=== PATIENT | female | born 1940 | race Caucasian/White ===

== ENCOUNTER → 2017-03-14 | Outpatient (CLI) | payer MEDICARE, MEDICAID, SELFPAY | PROVIDERS: Visit Provider Internal Medicine | DX: M54.2 Cervicalgia; C82.91 Follicular lymphoma, unspecified, lymph nodes of head, face, and neck | CPT/HCPCS: 36415; 70491; 71260; 72156; 74177; 76376; 80053; 85025; A9576; Q9967 ==

== ENCOUNTER → 2017-03-28 | Outpatient (POV) | payer MEDICARE, MEDICAID, SELFPAY | PROVIDERS: Family Provider Family Medicine; PCP Family Medicine; Visit Provider Internal Medicine | DX: C85.90 Non-Hodgkin lymphoma, unspecified, unspecified site (principal) | CPT/HCPCS: 99214; 93971 ==

== ENCOUNTER 2017-04-02 11:22 | Inpatient (IN) | payer MEDICARE, MEDICAID, SELFPAY ==
[2017-04-02] VITALS (10 sets, daily range): BP systolic 132–187; BP diastolic 60–117; PULSE 109–153; RESP 14–22; TEMP 36.8–37.7; O2SAT 90–98; BMI 38.2
--- NOTE | 2017-04-02 06:33 | XR_ITS ---
XR chest portable Ordering Physician: Jagruti Kim MD Patient Age: 77 years: Female HISTORY: Short of breath chest discomfort. Recent diagnosis lymphoma and mediastinum. TECHNIQUE: AP upright portable chest COMPARISON :PA and lateral chest from 05/07/[address] chest 03/14/2017 FINDINGS Cardiomegaly slightly more pronounced on today's study in part due to the AP projection.. . I would encourage a echocardiogram if it has not been performed on due to the thickening at the cardiac apex noted on prior CT. Upper normal pulmonary vascularity seen today. Do not see any convincing CHF. Mild fullness at the right paratracheal region is similar to multiple old studies reflects tortuous innominate on recent CT. The lungs overall appears stable since July 2015 chest portable no discrete new findings. No pleural effusion or pneumothorax. Stable linear scarring towards the left lung base. 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 Linear scarring towards left base. Cardiomegaly perhaps slightly more pronounced today. Perhaps Mild stable vascular engorgement but But No CHF. Note Would suggest echocardiogram if it is not been performed in this patient given the thin appearance cardiac apex prior CT
[2017-04-02 07:07] LABS: Basophils # 0.1 K/mm3 (0-0.2); Basophils % 0.7 % (0.1-2.0); Eosinophils # 0.3 K/mm3 (0.0-0.4); Eosinophils % 3.2 % (0.1-12.0); Hematocrit 45.9 % (37.0-47.0); Hemoglobin 14.7 g/dL (12.2-16.2); Lymphocytes # 3.2 K/mm3 (0.7-4.5); Lymphocytes % 35.9 K/mm3 (10-50); Mean Corpuscular Hemoglobin 31.3 pg (27.0-31.2); Mean Corpuscular Volume 97.9 fl (81-99); Mean Platelet Volume 9.9 fl (7.4-10.4); Neutrophils # 4.4 K/mm3 (1.8-7.8); Neutrophils % 49.1 % (37.0-80.0); Platelet Count 186 K/mm3 (142-424); Red Blood Count 4.69 M/mm3 (4.20-5.40); Red Cell Distribution Width 12.7 % (11.5-17.5); White Blood Count 8.9 K/mm3 (4.8-10.8)
[2017-04-02 07:23] LABS: Lactic Acid 1.6 mmol/L (0.4-2.0)
--- NOTE | 2017-04-02 08:24 | HMH.EDGENADL ---
ED Disposition Clinical Impression: Atrial fibrillation with rapid ventricular response Disposition: Still a Patient Condition on Discharge: Fair Referrals: Sunil Roque MD [Primary Care Provider] - - Critical Care Critical Care Time: Yes Attestation: On 04/02/17, the high probability of a clinically significant, sudden or life threatening deterioration of the following system(s) required my full and direct attention, intervention and personal management. The time I documented below is in addition to time spent performing reported procedures but includes the following listed in this critical care notation. Total Critical Care Time: 20 Vital system(s) involved:: Circulatory Failure My critical care processes included: Assessment & monitoring of V/S, Initial and Re-exams, Data Review/Interpretation, Coordinating Care, Medication Orders and management, Documentation Medical Decision Making - Medical Records Medical records reviewed: Yes: I reviewed the patient's medical records. MR Comment: I am unable to confirm any cardiac hx on our old records; ict project manager is at [facility] Vital Signs: 04/02/17 06:20 Temperature 98.9 F Temperature Source Oral Pulse Rate 153 H Pulse Rate [Right Radial] 150 H Respiratory Rate 22 Blood Pressure [Right Arm] 159/117 Blood Pressure Mean [Right Arm] 131 Blood Pressure Source [Right Arm] Automatic Cuff Blood Pressure Position [Right Arm] Supine 02 Sat by Pulse Oximetry 96 Oxygen Delivery Method Room Air - Lab Data Result diagrams: 04/02/17 06:30 Orders (Tests/Meds): ED MEDICATIONS Generic Name Dose Route Start Last Admin Trade Name Freq PRN Reason Stop Dose Admin Sodium Chloride 10 ml 04/02/17 07:18 Saline Flush 10ml Syringe IV 05/02/17 07:17 NEEDED PRN Maintain IV Site Discontinued Medications Generic Name Dose Route Start Last Admin Trade Name Freq PRN Reason Stop Dose Admin Metoprolol Tartrate 2.5 mg 04/02/17 07:22 04/02/17 06:55 Metoprolol Tartrate 5mg/5ml Vial IV 04/02/17 07:23 2.5 mg ONCE ONE Administration Metoprolol Tartrate 2.5 mg 04/02/17 07:24 04/02/17 07:25 Metoprolol Tartrate 5mg/5ml Vial IV 04/02/17 07:25 2.5 mg ONCE ONE Administration ORDERS Category Date Time Status XR chest portable Stat Exams 04/02/17 06:33 Taken CMP [Comprehensive Metabolic Panel] Stat Lab 04/02/17 06:30 Received Cardiac Enzymes Stat Lab 04/02/17 06:30 Received Blood Culture Stat Micro 04/02/17 06:30 Received - Radiology Data #1 Image(s): Chest Image Reviewed: Yes I reviewed the patient's radiology results Preliminary Findings: Abnormal, No Infiltrates Seen ER COMMENT: pt w recent dx lymphoma; densities in the mediastinal region; pos CM; somewhat elevated R hemidiaphragm - ECG Data Tracing #1 I reviewed this ECG and interpreted as documented below: Afib w rapid ventricular response; LAFB; ST depression laterally strain vs. dig effect - Physician Consults Physician Consulted: Dr. Dietz Time: 07:50 (Dr. Dietz master control operator for Dr. Roque; aware that patient in rapid Afib and receiving meds in ED and care to be transferred at change of shift to Dr. Coronel; if persistent rapid rate Dr. Coronel to consult cardiology and Dr. Dietz regarding final disposition and care. ) Reason -: Pt condition - Sarath Inquiry Pt receiving controlled substance: No General Adult HPI - General Chief complaint: Chest Pain Stated complaint: CHEST PAIN Time Seen by Provider: 04/02/17 06:20 Mode of Arrival: Ambulatory Source of Information: Patient Limitations: No Limitations Description of Symptoms (Recalled from ER Triage Doc. by RN): CHEST PAIN, SOB, NAUSEA - History of Present Illness HPI narrative: Patient states she awakened at 0500 with palpitations. She has them intermittently and has been seen by Dr. Vazquez at [facility] in the past. She states she has lymphoma and is followed by Dr. Mcintyre. She watson
--- NOTE | 2017-04-02 08:29 | ED_ITS ---
ED Disposition Clinical Impression: Atrial fibrillation with rapid ventricular response Disposition: Still a Patient Condition on Discharge: Fair Referrals: Sunil Roque MD [Primary Care Provider] - - Critical Care Critical Care Time: Yes Attestation: On 04/02/17, the high probability of a clinically significant, sudden or life threatening deterioration of the following system(s) required my full and direct attention, intervention and personal management. The time I documented below is in addition to time spent performing reported procedures but includes the following listed in this critical care notation. Total Critical Care Time: 20 Vital system(s) involved:: Circulatory Failure My critical care processes included: Assessment & monitoring of V/S, Initial and Re-exams, Data Review/Interpretation, Coordinating Care, Medication Orders and management, Documentation Medical Decision Making - Medical Records Medical records reviewed: Yes: I reviewed the patient's medical records. MR Comment: I am unable to confirm any cardiac hx on our old records; professional driver is at [facility] Vital Signs: 04/02/17 06:20 Temperature 98.9 F Temperature Source Oral Pulse Rate 153 H Pulse Rate [Right Radial] 150 H Respiratory Rate 22 Blood Pressure [Right Arm] 159/117 Blood Pressure Mean [Right Arm] 131 Blood Pressure Source [Right Arm] Automatic Cuff Blood Pressure Position [Right Arm] Supine 02 Sat by Pulse Oximetry 96 Oxygen Delivery Method Room Air - Lab Data Result diagrams: 04/02/17 06:30 Orders (Tests/Meds): ED MEDICATIONS Generic Name Dose Route Start Last Admin Trade Name Freq PRN Reason Stop Dose Admin Sodium Chloride 10 ml 04/02/17 07:18 Saline Flush 10ml Syringe IV 05/02/17 07:17 NEEDED PRN Maintain IV Site Discontinued Medications Generic Name Dose Route Start Last Admin Trade Name Freq PRN Reason Stop Dose Admin Metoprolol Tartrate 2.5 mg 04/02/17 07:22 04/02/17 06:55 Metoprolol Tartrate 5mg/5ml Vial IV 04/02/17 07:23 2.5 mg ONCE ONE Administration Metoprolol Tartrate 2.5 mg 04/02/17 07:24 04/02/17 07:25 Metoprolol Tartrate 5mg/5ml Vial IV 04/02/17 07:25 2.5 mg ONCE ONE Administration ORDERS Category Date Time Status XR chest portable Stat Exams 04/02/17 06:33 Taken CMP [Comprehensive Metabolic Panel] Stat Lab 04/02/17 06:30 Received Cardiac Enzymes Stat Lab 04/02/17 06:30 Received Blood Culture Stat Micro 04/02/17 06:30 Received - Radiology Data #1 Image(s): Chest Image Reviewed: Yes I reviewed the patient's radiology results Preliminary Findings: Abnormal, No Infiltrates Seen ER COMMENT: pt w recent dx lymphoma; densities in the mediastinal region; pos CM ; somewhat elevated R hemidiaphragm - ECG Data Tracing #1 I reviewed this ECG and interpreted as documented below: Afib w rapid ventricular response; LAFB; ST depression laterally strain vs. dig effect - Physician Consults Physician Consulted: Dr. Dietz Time: 07:50 (Dr. Dietz managing consultant clinical professor for Dr. Roque; aware that patient in rapid Afib and receiving meds in ED and care to be transferred at change of shift to Dr. Coronel; if persistent rapid rate Dr. Coronel to consult cardiology and
[2017-04-02 09:03] LABS: Alanine Aminotransferase 21 U/L (12-78); Albumin Level 3.5 gm/dL (3.4-5.0); Albumin/Globulin Ratio 0.9 (1.1-1.8); Alkaline Phosphatase 89 U/L (46-116); Anion Gap 15.1 mEq/L (5-15); Aspartate Amino Transferase 31 U/L (15-37); Bilirubin,Total 0.4 mg/dL (0.2-1.0); Blood Urea Nitrogen 20 mg/dL (7-18); CKMB Relative Index 5.9 U/L (0-4.0); Calcium 10.1 mg/dL (8.5-10.1); Carbon Dioxide 27 mmol/L (21.0-32.0); Chloride 102 mmol/L (98-107); Creatine Kinase 44 U/L (26-140); Creatine Kinase MB 2.6 mg/ml (0.0-3.6); Creatinine Clearance Estimated 64 mg/ml (0-300); Creatinine,Serum 1.17 mg/dL (0.55-1.02); Estimated Glomerular Filt Rate 45 ml/min (>60); GFR (African American) 54 ML/MIN (>60); Globulin 3.8 gm/dl (1.3-3.2); Glucose 128 mg/dL (74-106); Potassium 4.1 mmoL/L (3.5-5.1); Sodium 140 mmol/L (136-145); Total Protein,Serum 7.3 gm/dL (6.4-8.2); Troponin I 0.06 ng/ml (0.00-0.06)
--- NOTE | 2017-04-02 10:56 | PC.NURSE ---
ADVISED MD PT HEART RATE WAS STILL IN THE 130'S. HE ADVISED HE WAS GOING TO SEE THE PATIENT IN A FEW MOMENTS AND NO NEW VERBAL ORDERS WERE GIVEN AT THIS TIME.
--- NOTE | 2017-04-02 11:05 | PC.NURSE ---
per increased cardizem drip to 6ml/hr.
--- NOTE | 2017-04-02 12:02 | PC.NURSE ---
ADVISED PT SHE WOULD BE WAITING IN THE ED UNTIL BED WAS AVALIABLE ON THE FLOOR. PT AGREEABLE AND EATING LUNCH AT THIS TIME
--- NOTE | 2017-04-02 13:24 | PC.NURSE ---
CALLED AND SPOKE WITH THE FLOOR ABOUT BED STATUS THEY ADVISED THEY WERE MOVING ONE TO FLOOR AND WAS WAITING ON THE BED TO BE CLEANED
[2017-04-02 16:19] LABS: Troponin I 8.46 ng/ml (0.00-0.06)
[2017-04-02 19:06] LABS: Troponin I 8.12 ng/ml (0.00-0.06)
--- NOTE | 2017-04-02 20:30 | HMH.HP ---
*Admission Date: 04/02/17 *Chief complaint: Palpitations *History of present illness: 77-year-old white female, recently diagnosed with lymphoma, who over the summer has had treatments here through [facility] hematology. She has a remote history of palpitations related to anxiety, but this morning began to have significant palpitations along with some fleeting chest pain. She had dyspnea as well as the palpitations and came to the emergency department. She was found to have atrial fibrillation with rapid response, and was treated initially with intravenous beta bobby in low doses but this failed to improve her situation and she was placed on diltiazem intravenously after bolus dose and placed in the intensive care unit. Currently she feels much better, feels like her palpitations are improving and denies chest pain or diaphoresis. She does complain of recent cough and a rash over her extremities that is new. Her cough is dry and nonproductive. [facility] History Medical History: Reports:: Atrial Fibrillation, Cancer Denies:: Diabetes Mellitus Type 2, Myocardial Infarction - *Social History Smoking Status: Former smoker Alcohol Intake: never - Psychiatric History Expresses thoughts of harming self/others: None Suicide Plan Description: No Plan *Family Hx:: No significant family history, Non-contributory Review of Systems - Constitutional Reports fatigue, Reports fever(s), Reports night sweats - ENT Reports nasal congestion, Reports neck lump - *Cardiovascular Reports chest pain, Reports chest pain at rest, Reports shortness of breath with activity, Reports irregular heart rhythm - *Gastrointestinal Denies abdominal pain, Denies bloating, Denies change in bowel habits, Denies change in stools, Denies heartburn, Denies difficulty swallowing - *Genitourinary Denies difficulty urinating, Denies painful urination, Denies blood in urine - *Musculoskeletal Reports back pain, Reports body aches - *Neurologic Denies frequent falls, Denies headache(s), Denies memory loss - Hematologic/Lymphatic Reports easy bruising, Reports enlarged lymph nodes Meds Home Medications Medication Instructions Recorded Confirmed Type ALPRAZolam [Alprazolam 0.25mg 0.25 mg PO DAILY 04/02/17 04/02/17 History Tab] Budesonide/Formoterol Fumarate 6 gm IH DAILY 04/02/17 04/02/17 History [Symbicort 160-4.5 Mcg Inhaler] Hydrocodone/Acetaminophen 1 each PO DAILY 04/02/17 04/02/17 History [Hydrocodon-Acetaminophn 10-325] Lisinopril [Lisinopril 2.5mg Tab] 2.5 mg PO DAILY 04/02/17 04/02/17 History Omeprazole [Omeprazole 20mg 20 mg PO DAILY 04/02/17 04/02/17 History Capsule] Allergies Allergy/AdvReac Type Severity Reaction Status Date / Time buspirone [From BuSpar] Allergy Severe SUICIDAL Verified 04/02/17 06:40 IDEATION prednisone Allergy Severe INTERNAL Verified 04/02/17 06:40 ORGANOMEGALY propoxyphene Allergy Severe RESPIRATORY Verified 04/02/17 06:40 [From Darvocet-N] DEPRESSION tramadol Allergy Severe SEVERE Verified 04/02/17 06:40 WITHDRAWAL adhesive Allergy Intermediate I-RASH Verified 04/02/17 06:40 bupropion [From Wellbutrin] Allergy Intermediate DEPRESSION Verified 04/02/17 06:40 codeine Allergy Intermediate LEG PAIN, Verified 04/02/17 06:40 STOMACH CRMPS cyclobenzaprine Allergy Intermediate MUSCLE Verified 04/02/17 06:40 [From Flexeril] SPASMS diclofenac [From Voltaren] Allergy Intermediate I-HIVES Verified 04/02/17 06:40 escitalopram [From Lexapro] Allergy Intermediate IRREGULAR Verified 04/02/17 06:40 HEART RATE, NUMBNESS,TINGLING gabapentin [From Neurontin] Allergy Intermediate I-ITCHING, Verified 04/02/17 06:40 SLURRED SPEECH, HEAD PAIN influenza virus vaccine, Allergy Intermediate I-RASH Verified 04/02/17 06:40 specific [influenza virus vacc,specific] meloxicam [From Mobic] Allergy Intermediate SORES, Verified
--- NOTE | 2017-04-02 20:33 | P.HP_ITS ---
*Admission Date: 04/02/17 *Chief complaint: Palpitations *History of present illness: 77-year-old white female, recently diagnosed with lymphoma, who over the summer has had treatments here through [facility] hematology. She has a remote history of palpitations related to anxiety, but this morning began to have significant palpitations along with some fleeting chest pain. She had dyspnea as well as the palpitations and came to the emergency department. She was found to have atrial fibrillation with rapid response, and was treated initially with intravenous beta bobby in low doses but this failed to improve her situation and she was placed on diltiazem intravenously after bolus dose and placed in the intensive care unit. Currently she feels much better, feels like her palpitations are improving and denies chest pain or diaphoresis. She does complain of recent cough and a rash over her extremities that is new. Her cough is dry and nonproductive. [facility] History Medical History: Reports:: Atrial Fibrillation, Cancer Denies:: Diabetes Mellitus Type 2, Myocardial Infarction - *Social History Smoking Status: Former smoker Alcohol Intake: never - Psychiatric History Expresses thoughts of harming self/others: None Suicide Plan Description: No Plan *Family Hx:: No significant family history, Non-contributory Review of Systems - Constitutional Reports fatigue, Reports fever(s), Reports night sweats - ENT Reports nasal congestion, Reports neck lump - *Cardiovascular Reports chest pain, Reports chest pain at rest, Reports shortness of breath with activity, Reports irregular heart rhythm - *Gastrointestinal Denies abdominal pain, Denies bloating, Denies change in bowel habits, Denies change in stools, Denies heartburn, Denies difficulty swallowing - *Genitourinary Denies difficulty urinating, Denies painful urination, Denies blood in urine - *Musculoskeletal Reports back pain, Reports body aches - *Neurologic Denies frequent falls, Denies headache(s), Denies memory loss - Hematologic/Lymphatic Reports easy bruising, Reports enlarged lymph nodes Meds Home Medications Medication Instructions Recorded Confirmed Type ALPRAZolam [Alprazolam 0.25mg 0.25 mg PO DAILY 04/02/17 04/02/17 History Tab] Budesonide/Formoterol Fumarate 6 gm IH DAILY 04/02/17 04/02/17 History [Symbicort 160-4.5 Mcg Inhaler] Hydrocodone/Acetaminophen 1 each PO DAILY 04/02/17 04/02/17 History [Hydrocodon-Acetaminophn 10-325] Lisinopril [Lisinopril 2.5mg Tab] 2.5 mg PO DAILY 04/02/17 04/02/17 History Omeprazole [Omeprazole 20mg 20 mg PO DAILY 04/02/17 04/02/17 History Capsule] Allergies Allergy/AdvReac Type Severity Reaction Status Date / Time buspirone [From BuSpar] Allergy Severe SUICIDAL Verified 04/02/17 06:40 IDEATION prednisone Allergy Severe INTERNAL Verified 04/02/17 06:40 ORGANOMEGALY propoxyphene Allergy Severe RESPIRATORY Verified 04/02/17 06:40 [From Darcristianocet-N] DEPRESSION tramadol Allergy Severe SEVERE Verified 04/02/17 06:40 WITHDRAWAL adhesive Allergy Intermediate I-RASH Verified 04/02/17 06:40 bupropion [From Wellbutrin] Allergy Intermediate DEPRESSION Verified 04/02/17 06 :40 codeine Allergy Intermediate LEG PAIN, Verified 04/02/17 06:40 STOMACH CRMPS cyclobenzaprine Allergy Intermediate MUSCLE Verified 04/02/17 06:40
[2017-04-02 21:56] LABS: Troponin I 6.25 ng/ml (0.00-0.06)
[2017-04-03] VITALS (28 sets, daily range): BP systolic 96–144; BP diastolic 45–87; PULSE 49–131; RESP 16–22; TEMP 36.6–37.4; O2SAT 90–902; BMI 37.8
--- NOTE | 2017-04-03 01:26 | PC.NURSE ---
PT IS A&OX3. SHE IS [place]. SHE HAS A NON-PRODUCTIVE COUGH. SHE HAS ABRASIONS ON HER RLE. SHE IS CONTINUING ON A CARDIZEM GTT FOR AFIB. SHE RECEIVED PRN PAIN MEDICATION FOR PAIN THAT WAS ALL OVER.
--- NOTE | 2017-04-03 04:38 | PC.NURSE ---
PT COMPLANING OF ALL OVER PAIN REPORTS TAKES LORTAB 10/325MG AT HOME S.JOHN,RN NOTIFIED AND RECIEVED ORDER FOR LORTAB 10/325MG PO TID PRN MODERATE TO SEVERE PAIN.REPEATED AND VERIFIED
[2017-04-03 06:01] LABS: Basophils # 0.1 K/mm3 (0-0.2); Basophils % 0.6 % (0.1-2.0); Eosinophils # 0.2 K/mm3 (0.0-0.4); Eosinophils % 2.4 % (0.1-12.0); Hematocrit 44.2 % (37.0-47.0); Hemoglobin 13.8 g/dL (12.2-16.2); Lymphocytes # 2.1 K/mm3 (0.7-4.5); Lymphocytes % 25.1 K/mm3 (10-50); Mean Corpuscular HGB Conc 31.1 g/dL (31.8-35.4); Mean Corpuscular Hemoglobin 30.8 pg (27.0-31.2); Mean Corpuscular Volume 99.1 fl (81-99); Mean Platelet Volume 8.8 fl (7.4-10.4); Monocytes # 0.6 K/mm3 (0.1-1.0); Neutrophils # 5.5 K/mm3 (1.8-7.8); Neutrophils % 64.9 % (37.0-80.0); Platelet Count 175 K/mm3 (142-424); Red Blood Count 4.46 M/mm3 (4.20-5.40); Red Cell Distribution Width 12.5 % (11.5-17.5); White Blood Count 8.4 K/mm3 (4.8-10.8)
[2017-04-03 06:15] LABS: Blood Urea Nitrogen 18 mg/dL (7-18); Carbon Dioxide 31 mmol/L (21.0-32.0); Chloride 105 mmol/L (98-107); Creatinine Clearance Estimated 61 mg/ml (0-300); Creatinine,Serum 1.22 mg/dL (0.55-1.02); Estimated Glomerular Filt Rate 43 ml/min (>60); GFR (African American) 51 ML/MIN (>60); Glucose 122 mg/dL (74-106); Sodium 142 mmol/L (136-145)
--- NOTE | 2017-04-03 06:55 | HMH.ACPN ---
Internal Medicine - PN: Subj *Date: 04/03/17 *Time: 06:55 Interval history: Patient remains tachycardic and in atrial fibrillation with rate in the 120s. Nursing staff tells me patient's heart rate did come down to the low 100s but she lost IV access and heart rate increased while on the Cardizem drip. Patient is awake and alert and quite conversant. Lungs are clear to auscultation. Heart rate is irregular and tachycardic. Abdomen is soft. Lower extremities have erythematous papular lesions the size of a dime or smaller. Troponins are positive Consult cardiology for patient's atrial fibrillation. Check echocardiogram today. Has also had a non-STEMI. Exam Vital signs and Labs for Last 24 Hours: Temp Pulse Resp BP Pulse Ox 99.4 F 106 H 18 137/86 90 L 04/03/17 06:11 04/03/17 06:11 04/03/17 06:11 04/03/17 06:11 04/03/17 04:21 Short CBC 04/03/17 Range/Units 05:35 WBC 8.4 (4.8-10.8) K/mm3 Hgb 13.8 (12.2-16.2) g/dL Hct 44.2 (37.0-47.0) % Plt Count 175 (142-424) K/mm3 BMP 04/03/17 05:35 Sodium 142 Potassium 4.0 Chloride 105 Carbon Dioxide 31 BUN 18 Creatinine 1.22 H Glucose 122 H Cardiac Enzymes 04/02/17 04/02/17 04/02/17 Range/Units 15:38 18:21 21:20 Troponin I 8.46 H 8.12 H 6.25 H (0.00-0.06) ng/ml I & O for Last 24 hours: Intake & Output 03/31/17 04/01/17 04/02/17 04/03/17 11:59 11:59 11:59 11:59 Intake Total 729 / 729 Output Total 1100 / 1100 Balance -371 / -371 Assessment and Plan (1) Atrial fibrillation with rapid ventricular response Current visit: Yes Status: Acute Category: Medical Code(s): I48.91 - Unspecified atrial fibrillation
--- NOTE | 2017-04-03 07:05 | CA_ITS ---
PROCEDURE: 2-D M-mode and color Doppler study INDICATIONS FOR THE TEST: Chest pain COPD Heart Murmur Tobacco Smoking Palpitations+ Fatigue Syncope Edema Hypertension Diabetes Mellitus Rheumatic Fever SOB+KIDD Obesity Hyperlipidemia Family History HD Additional History NSTEMI, lymphoma, chemo PATIENT INFORMATION HEIGHT: 63 WEIGHT:227 GENDER: Female B/P:141/90 2-D/M-MODE INTERPRETATION: 2-D MEASUREMENTS OBSERVED VALUES IN CMS Right Ventricular Dimension (RVDd) 2.4 Interventricular Septum (Thickness)(IVsd) 2.7 Left Ventricular Internal Dimensions(LVIDd) 5.8 Left Ventricular Posterior Wall (Thickness)(LVPWd) 0.5 Aortic Root 4.2 Aortic Cusp Separation 2.0 Left Atrial Dimensions (LAD) 5.1 2D 1. Left atrium is moderately enlarged, left ventricle is normal size, there is moderate concentric left ventricular hypertrophy present, visually estimated ejection fraction 50% with no obvious regional wall motion abnormality. 2. The right atrium and right ventricle are relatively normal size and function. 3. The aortic valve is thickened and calcified leaflet continue to display mobility. 4. The mitral valve has mitral annular calcification, leaflets are minimally thickened and calcified. 5. The tricuspid valve is minimally thickened. 6. The pulmonic valve is poorly visualized. 7. No significant pericardial effusion noted. DOPPLER INTERROGATION: Doppler interrogation of the aortic, mitral and tricuspid valvular presence of mild aortic, moderate mitral and mild tricuspid regurgitation, tricuspid regurgitant jet velocity is insufficient for calculation of the right ventricular systolic pressure, diastolic parameters are inconclusive. CONCLUSION: 1. Moderately enlarged left atrium, normal left ventricular size, there is moderate concentric left ventricular hypertrophy, visually estimated ejection fraction 50% with no obvious regional wall motion abnormality, diastolic parameters are inconclusive. 2. Mild aortic, moderate mitral and mild tricuspid regurgitation. 3. No significant pericardial effusion noted.
--- NOTE | 2017-04-03 07:46 | HMH.CARDCON2 ---
History of Present Illness Consult date: 04/03/17 Requesting physician: Sunil Roque Chief complaint: Elevated troponins/NSTEMI History of present illness: 77 yo WF admitted for elevated heart rate with SOA and chest discomfort. Troponins elevated overnight. Cardiology consulted for evaluation. History of NHL with recent infusions per Dr. Mcintyre. History of remote cardiac cath by Dr. Vazquez >10 yrs ago without need for intervention. Denies DM, Tobacco use. On IV cardizem with HR in the 120-140's bpm range. No chest pains currently. Review of Systems - Constitutional Reports chills, Reports excessive sweating, Reports fever(s), Reports weakness - *Cardiovascular Reports chest pain, Reports irregular heart rhythm - *Respiratory Reports cough, Reports shortness of breath - *Neurologic Denies frequent falls, Denies headache(s), Denies memory loss - Hematologic/Lymphatic Reports enlarged lymph nodes [facility] History Medical History: Reports:: Atrial Fibrillation, Cancer Denies:: Cerebrovascular Accident, Diabetes Mellitus Type 2, Myocardial Infarction, Seizures - *Social History Smoking Status: Former smoker Tobacco Type: cigarettes Alcohol Intake: never - Psychiatric History Expresses thoughts of harming self/others: None Suicide Plan Description: No Plan Pschychiatric History:: Reports:: Anxiety *Family Hx:: No significant family history, Non-contributory Meds Home Medications Medication Instructions Recorded Confirmed Type ALPRAZolam [Alprazolam 0.25mg 0.25 mg PO DAILY 04/02/17 04/02/17 History Tab] Budesonide/Formoterol Fumarate 6 gm IH DAILY 04/02/17 04/02/17 History [Symbicort 160-4.5 Mcg Inhaler] Hydrocodone/Acetaminophen 1 each PO DAILY 04/02/17 04/02/17 History [Hydrocodon-Acetaminophn 10-325] Lisinopril [Lisinopril 2.5mg Tab] 2.5 mg PO DAILY 04/02/17 04/02/17 History Omeprazole [Omeprazole 20mg 20 mg PO DAILY 04/02/17 04/02/17 History Capsule] Allergies Allergy/AdvReac Type Severity Reaction Status Date / Time buspirone [From BuSpar] Allergy Severe SUICIDAL Verified 04/02/17 06:40 IDEATION prednisone Allergy Severe INTERNAL Verified 04/02/17 06:40 ORGANOMEGALY propoxyphene Allergy Severe RESPIRATORY Verified 04/02/17 06:40 [From Darvocet-N] DEPRESSION tramadol Allergy Severe SEVERE Verified 04/02/17 06:40 WITHDRAWAL adhesive Allergy Intermediate I-RASH Verified 04/02/17 06:40 bupropion [From Wellbutrin] Allergy Intermediate DEPRESSION Verified 04/02/17 06:40 codeine Allergy Intermediate LEG PAIN, Verified 04/02/17 06:40 STOMACH CRMPS cyclobenzaprine Allergy Intermediate MUSCLE Verified 04/02/17 06:40 [From Flexeril] SPASMS diclofenac [From Voltaren] Allergy Intermediate I-HIVES Verified 04/02/17 06:40 escitalopram [From Lexapro] Allergy Intermediate IRREGULAR Verified 04/02/17 06:40 HEART RATE, NUMBNESS,TINGLING gabapentin [From Neurontin] Allergy Intermediate I-ITCHING, Verified 04/02/17 06:40 SLURRED SPEECH, HEAD PAIN influenza virus vaccine, Allergy Intermediate I-RASH Verified 04/02/17 06:40 specific [influenza virus vacc,specific] meloxicam [From Mobic] Allergy Intermediate SORES, Verified 04/02/17 06:40 ACNE, DIARRHEA naproxen [From Naprosyn] Allergy Intermediate STOMACH Verified 04/02/17 06:40 PAIN, CRAMPS Penicillins Allergy Intermediate I-HIVES Verified 04/02/17 06:40 promethazine [From Phenergan] Allergy Intermediate LOSS OF Verified 04/02/17 06:40 SPEECH, MUSCLE CONTRACTIONS, NAUSEA rosuvastatin [From Crestor] Allergy Intermediate NECK, LEG, Verified 04/02/17 06:40 AND JOINT PAIN; NUMBNESS simvastatin [From Vytorin] Allergy Intermediate TINGLING Verified 04/02/17 06:40 IN FEET & ANKLES; NUMBNESS tetanus and diphtheria Allergy Intermediate I-RASH, Verified 04/02/17 06:40 toxoids SWELLING, [tetanu
--- NOTE | 2017-04-03 08:13 | IR_ITS ---
CARDIAC CATHETERIZATION DATE OF CATHETERIZATION:04/03/2017 9:07 AM PROCEDURES: 1. Left heart catheterization 2. Left ventriculogram 3. Selective coronary angiogram 4. Catheter placement in the brachiocephalic artery 5. Brachiocephalic artery angiogram 6. Catheter placement in the ascending aorta 7. Ascending aortogram INDICATION FOR TEST: 1. Acute non-ST elevation myocardial infarction 2. Ascending aortic dissection 3. 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 COMPLICATIONS: None ESTIMATED BLOOD LOSS: Less than 10 ml. TECHNIQUE: One percent lidocaine used to anesthetize the right anterior aspect of the wrist. The right radial artery was accessed via the Seldinger technique. A 6 [place] sheath was placed in the right radial artery. 2.5 mg of verapamil, 800 mcg of nitroglycerin and 5000 U Heparin were given through the arterial sheath. The trap catheter was placed in the brachiocephalic artery neither the wire nor the catheter would pass therefore retrograde angiography was performed. A hydrophilic tipped wire was then used to traverse the tortuosity and enter the descending aorta. Following this the trap catheter was also used to perform left heart catheterization left ventriculogram and selective coronary angiogram. An advantage wire was required in order to traverse the brachiocephalic artery the transverse aorta and the zen ascending aorta. Initial retrograde angiography suggested dilatation and possible dissection of the aortic root as well as transverse and descending aorta. Because of this a pigtail catheter was placed in the ascending aorta and ascending aortography was performed. At the end of the procedure the sheath was removed good hemostasis was achieved using TR banding patient was transferred to the postop holding area in stable condition ANGIOGRAPHIC RESULTS: 1. The left main artery normal 2. The left anterior descending artery proximally has mild vascular ectasia with no significant atherosclerotic stenosis beyond 10% throughout its entire course 3. The circumflex artery is nondominant and has mild vascular ectasia with no focal stenosis greater than 10% 4. The right coronary artery is a large dominant vessel with mild to moderate vascular ectasia throughout its entire course with no stenosis greater than 10% 5. The WRIGHT ventriculogram reveals mild left ventricular dilatation with normal ejection fraction estimated at 65% 6. The left ventricular end-diastolic pressure 30 mmHg 7. +1 aortic regurgitation is present 8. The ezn ascending transverse and proximal descending aorta is dilated with no focal aneurysm or dissection 9. The brachiocephalic artery is dilated tortuous with no focal stenosis IMPRESSION: 1. Mild to moderate diffuse vascular ectasia with nonflow limiting very mild coronary artery disease 2. Mild left ventricular dilatation with normal ejection fraction 3. Elevated LVEDP consistent with diastolic heart failure 4. Angiographically mild aortic regurgitation 5. Dilation of the ascending transverse and proximal descending aorta consistent with hypertensive dilatation PLAN: 1. Medical management 2. Evaluation for pulmonary embolism with consideration of CTA if clinically relevant 3. Echocardiogram 4. Diuresis 5. Treatment of an diagnosis of underlying pulmonary disease 6. Daily baby aspirin 7. Risk factor modification
--- NOTE | 2017-04-03 08:18 | HMH.PHAVTE ---
[facility] Pharmacy VTE Monitoring - Patient Demographics Admission date: 04/03/17 Report Date: 04/03/17 Time: 08:19 Allergies/Adverse Reactions: buspirone [From BuSpar] Allergy (Severe, Verified 04/02/17 06:40) SUICIDAL IDEATION prednisone Allergy (Severe, Verified 04/02/17 06:40) INTERNAL ORGANOMEGALY propoxyphene [From Darvocet-N] Allergy (Severe, Verified 04/02/17 06:40) RESPIRATORY DEPRESSION tramadol Allergy (Severe, Verified 04/02/17 06:40) SEVERE WITHDRAWAL adhesive Allergy (Intermediate, Verified 04/02/17 06:40) I-RASH bupropion [From Wellbutrin] Allergy (Intermediate, Verified 04/02/17 06:40) DEPRESSION codeine Allergy (Intermediate, Verified 04/02/17 06:40) LEG PAIN, STOMACH CRMPS cyclobenzaprine [From Flexeril] Allergy (Intermediate, Verified 04/02/17 06:40) MUSCLE SPASMS diclofenac [From Voltaren] Allergy (Intermediate, Verified 04/02/17 06:40) I-HIVES escitalopram [From Lexapro] Allergy (Intermediate, Verified 04/02/17 06:40) IRREGULAR HEART RATE, NUMBNESS,TINGLING gabapentin [From Neurontin] Allergy (Intermediate, Verified 04/02/17 06:40) I-ITCHING, SLURRED SPEECH, HEAD PAIN influenza virus vaccine, specific [influenza virus vacc,specific] Allergy (Intermediate, Verified 04/02/17 06:40) I-RASH meloxicam [From Mobic] Allergy (Intermediate, Verified 04/02/17 06:40) SORES, ACNE, DIARRHEA naproxen [From Naprosyn] Allergy (Intermediate, Verified 04/02/17 06:40) STOMACH PAIN, CRAMPS Penicillins Allergy (Intermediate, Verified 04/02/17 06:40) I-HIVES promethazine [From Phenergan] Allergy (Intermediate, Verified 04/02/17 06:40) LOSS OF SPEECH, MUSCLE CONTRACTIONS, NAUSEA rosuvastatin [From Crestor] Allergy (Intermediate, Verified 04/02/17 06:40) NECK, LEG, AND JOINT PAIN; NUMBNESS simvastatin [From Vytorin] Allergy (Intermediate, Verified 04/02/17 06:40) TINGLING IN FEET & ANKLES; NUMBNESS tetanus and diphtheria toxoids [tetanus & diphtheria toxoids] Allergy (Intermediate, Verified 04/02/17 06:40) I-RASH, SWELLING, PAIN venlafaxine [From Effexor] Allergy (Intermediate, Verified 04/02/17 06:40) DISORIENTED venom-honey bee [bee venom (honey bee)] Allergy (Intermediate, Verified 04/02/17 06:40) SWELLING paroxetine [From Paxil] Allergy (Mild, Verified 04/02/17 06:40) DRY MOUTH, UNCONTROLLED HICCUPS sertraline [From Zoloft] Allergy (Mild, Verified 04/02/17 06:40) UNCONTROLLED HICCUPS duloxetine [From Cymbalta] Allergy (Unknown, Verified 04/02/17 06:40) ezetimibe [From Zetia] Allergy (Unknown, Verified 04/02/17 06:40) honey Allergy (Unknown, Verified 04/02/17 06:40) celecoxib [From Celebrex] Adverse Reaction (Mild, Verified 04/02/17 06:40) HEADACHE diazepam [From Valium] Adverse Reaction (Mild, Verified 04/02/17 06:40) HYPERACTIVE morphine Adverse Reaction (Mild, Verified 04/02/17 06:40) NA-NAUSEA/VOMITING; DISORIENTATION ULTRAVIOLET LIGHT Allergy (Unknown, Uncoded 03/20/17 15:01) CAT GUT SUTURES Adverse Reaction (Unknown, Uncoded 03/20/17 15:01) Height: 1.65 m Weight: 102.994 kg Patient Problems: Current Active Problems Atrial fibrillation with rapid ventricular response (Acute) Elevated troponin (Acute) Cough (Acute) Rash (Acute) - VTE Risk Labs: VTE Related Lab Results Hgb 13.8 g/dL (12.2-16.2) 04/03/17 05:35 Hct 44.2 % (37.0-47.0) 04/03/17 05:35 Plt Count 175 K/mm3 (142-424) 04/03/17 05:35 BUN 18 mg/dL (7-18) 04/03/17 05:35 Creatinine 1.22 mg/dL (0.55-1.02) H 04/03/17 05:35 Estimated Creat Clear 61 mg/ml (0-300) 04/03/17 05:35 - Prophylaxis Types of VTE Prophylaxis: TEDS Knee High, Other Location of Applied Device: Not Applicable
[2017-04-03 08:37] LABS: Mycoplasma Pneumo IGM (Rapid) Non-Reactive (Non-Reactiv)
--- NOTE | 2017-04-03 09:13 | SUR.PREOP ---
PT ARRIVED TO [facility] AREA IN STABLE CONDITION VIA WHEELCHAIR, ALLENS TEST PERFORMED PER Gia GONCALVES RN, RESULT WAS AN A, PT TAKEN TO PROCEDURE ROOM AT THIS TIME
--- NOTE | 2017-04-03 13:17 | PC.NURSE ---
OF [id number] PATIENT CAN BE TAKEN OUT OF STEPDOWN AND MADE ACUTE PER DIANA LINDSEY
--- NOTE | 2017-04-03 18:55 | PC.NURSE ---
SINCE COMING BACK FROM [facility] PATIENT HAS RESTED WELL AND HAD MULTIPLE QUESTIONS ABOUT CARE AND WAS EDUCATED APPROPRIATELY. MD WAS NOTIFIED ABOUT NEED FOR LASIX PER [facility] AND AN ORDER WAS OBTAINED. SHE HAS HAD NO COMPLAITNS OF PAIN. REMAINS ON O2 WITH SATS IN LOW 90S. TELFA AND TEGADERM PLACED ON CATH SITE WITH NO SIGNS OF BLEEDING OR HEMATOMA. ALL STRIPS HAVE BEEN NORMAL SINUS SINCE PATIENT CONVERTED AT 0900. T WAVE IS ELVATED. VSS WILL CONTINUE TO MONITOR.
--- NOTE | 2017-04-03 23:17 | PC.NURSE ---
right radial cath right free from hematoma or bleeding
[2017-04-04] VITALS (9 sets, daily range): BP systolic 120–139; BP diastolic 69–72; PULSE 59–80; RESP 12–20; TEMP 36.7–37; O2SAT 91–96
--- NOTE | 2017-04-04 03:46 | PC.NURSE ---
PT STABLE. WEARING OXYGEN VIA NC WHEN PT FIRST FELL ASLEEP. SATS NOTED TO DROP TO 87-90%. PT NOTED TO BE SNORING. PT PLACED ON VENTI MASK AT 35% AND SATS AT 89-92%. WHEN PT WAKES UP AND USES BSC, SATS RAISE TO MID-HIGH 90s.
--- NOTE | 2017-04-04 06:48 | HMH.ACPN ---
Internal Medicine - PN: Subj *Date: 04/04/17 *Time: 06:55 Interval history: Patient underwent cardiac catheterization yesterday. She had no significant obstructive coronary artery disease. Post procedurally patient converted to sinus rhythm and has remained in sinus rhythm. She is now on oral Cardizem. She does complain of a hacking cough which she has had for months. Vital signs reviewed. Patient required use of Ventimask overnight. Oropharynx is moist. Lungs are clear although deep breathing triggered frequent hacking cough. Heart has a regular rate and rhythm this morning. Abdomen is soft. Exam Vital signs and Labs for Last 24 Hours: Temp Pulse Resp BP Pulse Ox 98.6 F 70 20 120/70 91 L 04/04/17 04:30 04/04/17 04:34 04/04/17 04:30 04/04/17 04:30 04/04/17 04:30 Laboratory Results - last 72 hr 04/02/17 04/02/17 04/02/17 06:30 06:30 06:30 WBC 8.9 RBC 4.69 Hgb 14.7 Hct 45.9 MCV 97.9 MCH 31.3 H MCHC 32.0 RDW 12.7 Plt Count 186 MPV 9.9 Neut % (Auto) 49.1 Lymph % (Auto) 35.9 Cocke % (Auto) 11.0 H Eos % (Auto) 3.2 Baso % (Auto) 0.7 Neut # (Auto) 4.4 Lymph # (Auto) 3.2 Cocke # (Auto) 1.0 Eos # (Auto) 0.3 Baso # (Auto) 0.1 Sodium 140 Potassium 4.1 Chloride 102 Carbon Dioxide 27 Anion Gap 15.1 H BUN 20 H Creatinine 1.17 H Estimated Creat Clear 64 Estimated GFR 45 L Est GFR ( Amer) 54 L Glucose 128 H Lactic Acid 1.6 Calcium 10.1 Total Bilirubin 0.4 AST 31 ALT 21 Alkaline Phosphatase 89 Total Creatine Kinase 44 CK-MB (CK-2) 2.6 CK-MB (CK-2) Rel Index 5.9 H Troponin I 0.06 Total Protein 7.3 Albumin 3.5 Globulin 3.8 H Albumin/Globulin Ratio 0.9 L Mycoplasma pneumon IgM 04/02/17 04/02/17 04/02/17 15:38 18:21 21:20 WBC RBC Hgb Hct MCV MCH MCHC RDW Plt Count MPV Neut % (Auto) Lymph % (Auto) Cocke % (Auto) Eos % (Auto) Baso % (Auto) Neut # (Auto) Lymph # (Auto) Cocke # (Auto) Eos # (Auto) Baso # (Auto) Sodium Potassium Chloride Carbon Dioxide Anion Gap BUN Creatinine Estimated Creat Clear Estimated GFR Est GFR ( Amer) Glucose Lactic Acid Calcium Total Bilirubin AST ALT Alkaline Phosphatase Total Creatine Kinase CK-MB (CK-2) CK-MB (CK-2) Rel Index Troponin I 8.46 H 8.12 H 6.25 H Total Protein Albumin Globulin Albumin/Globulin Ratio Mycoplasma pneumon IgM 04/03/17 04/03/17 04/03/17 05:35 05:35 05:35 WBC 8.4 RBC 4.46 Hgb 13.8 Hct 44.2 MCV 99.1 H MCH 30.8 MCHC 31.1 L RDW 12.5 Plt Count 175 MPV 8.8 Neut % (Auto) 64.9 Lymph % (Auto) 25.1 Cocke % (Auto) 7.0 Eos % (Auto) 2.4 Baso % (Auto) 0.6 Neut # (Auto) 5.5 Lymph # (Auto) 2.1 Cocke # (Auto) 0.6 Eos # (Auto) 0.2 Baso # (Auto) 0.1 Sodium 142 Potassium 4.0 Chloride 105 Carbon Dioxide 31 Anion Gap 10.0 BUN 18 Creatinine 1.22 H Estimated Creat Clear 61 Estimated GFR 43 L Est GFR ( Amer) 51 L Glucose 122 H Lactic Acid Calcium Total Bilirubin AST ALT Alkaline Phosphatase Total Creatine Kinase CK-MB (CK-2) CK-MB (CK-2) Rel Index Troponin I Total Protein Albumin Globulin Albumin/Globulin Ratio Mycoplasma pneumon IgM Non-reactive I & O for Last 24 hours: Intake & Output 04/01/17 04/02/17 04/03/17 04/04/17 11:59 11:59 11:59 11:59 Intake Total 1458 / 1458 500 / 500 Output Total 2200 / 2200 250 / 250 Balance -742 / -742 250 / 250 Assessment and Plan (1) Atrial fibrillation with rapid ventricular response Current visit: Yes Status: Acute Category: Medical Code(s): I48.91 - Unspecified atrial fibrillation (2) Non-STEMI (non-ST [place]
--- NOTE | 2017-04-04 06:53 | P.PN_ITS ---
Internal Medicine - PN: Subj *Date: 04/04/17 *Time: 06:55 Interval history: Patient underwent cardiac catheterization yesterday. She had no significant obstructive coronary artery disease. Post procedurally patient converted to sinus rhythm and has remained in sinus rhythm. She is now on oral Cardizem. She does complain of a hacking cough which she has had for months. Vital signs reviewed. Patient required use of Ventimask overnight. Oropharynx is moist. Lungs are clear although deep breathing triggered frequent hacking cough. Heart has a regular rate and rhythm this morning. Abdomen is soft. Exam Vital signs and Labs for Last 24 Hours: Temp Pulse Resp BP Pulse Ox 98.6 F 70 20 120/70 91 L 04/04/17 04:30 04/04/17 04:34 04/04/17 04:30 04/04/17 04:30 04/04/17 04:30 Laboratory Results - last 72 hr 04/02/17 04/02/17 04/02/17 06:30 06:30 06:30 WBC 8.9 RBC 4.69 Hgb 14.7 Hct 45.9 MCV 97.9 MCH 31.3 H MCHC 32.0 RDW 12.7 Plt Count 186 MPV 9.9 Neut % (Auto) 49.1 Lymph % (Auto) 35.9 Cobb % (Auto) 11.0 H Eos % (Auto) 3.2 Baso % (Auto) 0.7 Neut # (Auto) 4.4 Lymph # (Auto) 3.2 Cobb # (Auto) 1.0 Eos # (Auto) 0.3 Baso # (Auto) 0.1 Sodium 140 Potassium 4.1 Chloride 102 Carbon Dioxide 27 Anion Gap 15.1 H BUN 20 H Creatinine 1.17 H Estimated Creat Clear 64 Estimated GFR 45 L Est GFR ( Amer) 54 L Glucose 128 H Lactic Acid 1.6 Calcium 10.1 Total Bilirubin 0.4 AST 31 ALT 21 Alkaline Phosphatase 89 Total Creatine Kinase 44 CK-MB (CK-2) 2.6 CK-MB (CK-2) Rel Index 5.9 H Troponin I 0.06 Total Protein 7.3 Albumin 3.5 Globulin 3.8 H Albumin/Globulin Ratio 0.9 L Mycoplasma pneumon IgM 04/02/17 04/02/17 04/02/17 15:38 18:21 21:20 WBC RBC Hgb Hct MCV MCH MCHC RDW Plt Count MPV Neut % (Auto) Lymph % (Auto) Cobb % (Auto) Eos % (Auto) Baso % (Auto) Neut # (Auto) Lymph # (Auto) Cobb # (Auto) Eos # (Auto) Baso # (Auto) Sodium Potassium Chloride Carbon Dioxide Anion Gap BUN Creatinine Estimated Creat Clear Estimated GFR Est GFR ( Amer) Glucose Lactic Acid Calcium Total Bilirubin AST ALT Alkaline Phosphatase Total Creatine Kinase CK-MB (CK-2) CK-MB (CK-2) Rel Index Troponin I 8.46 H 8.12 H 6.25 H Total Protein Albumin Globulin Albumin/Globulin Ratio Mycoplasma pneumon IgM 04/03/17 04/03/17 04/03/17 05:35 05:35 05:35 WBC 8.4 RBC 4.46 Hgb 13.8
[2017-04-04 09:33] LABS: INR 1.08 (0.9-1.1); Prothrombin Time 11.7 seconds (9.4-11.8)
--- NOTE | 2017-04-05 07:19 | HMH.DCSUM ---
General - General Admission date: 04/03/17 Discharge date: 04/04/17 HPI HPI: 37-year-old female with vague history of cardiac arrhythmia presented to the emergency department on the morning of April 03 with palpitations and chest pressure at home. In the emergency department patient was found to be in atrial fibrillation with rapid ventricular response. Attempts were made to get her tachycardia under control in the ER but were unsuccessful and the patient was admitted on a Cardizem drip. Objective Vital signs: Temp Pulse Resp BP Pulse Ox 98.3 F 70 16 124/69 96 04/04/17 11:50 04/04/17 13:42 04/04/17 11:50 04/04/17 11:50 04/04/17 11:50 Narrative: At discharge patient was in no distress. She was conversing without signs of dyspnea. HEENT exam was grossly normal. Neck is without lymphadenopathy or jugular venous distention. Lungs remain clear but deep breathing triggered cough. Heart rate was regular without murmurs. Abdomen is soft. Extremities had trace edema. Skin had a macular rash on the lower leg Hospital Course Hospital Course: Patient was admitted on a Cardizem drip which brought her heart rate under control. Serial troponins were checked and patient's troponin had risen to the level of 6. She was diagnosed with non-ST elevation [place] and cardiology was consulted. Patient underwent cardiology consultation with left heart catheterization on April 03. Patient did not have any obstructive coronary artery disease. It was felt the non-STEMI was caused by demand ischemia from her tachycardia. Patient converted to a sinus rhythm. She was transitioned from intravenous Cardizem to oral Cardizem and discharged on this. Patient was given Lovenox on admission and transitioned to Coumadin at discharge. On the fourth she was discharged to home Results Labs on day of discharge: Labs from last 24 hours 04/04/17 09:15 PT 11.7 INR 1.08 DS: Diagnosis - Discharge Diagnosis (1) Atrial fibrillation with rapid ventricular response Status: Acute (2) Non-STEMI (non-ST elevated myocardial infarction) Status: Acute (3) Hypertension Status: Chronic (4) Non-Hodgkin lymphoma Status: Chronic (5) Rash Status: Acute Meds Home Medications Medication Instructions Recorded Confirmed Type ALPRAZolam [Alprazolam 0.25mg 0.25 mg PO DAILY 04/02/17 04/02/17 History Tab] Budesonide/Formoterol Fumarate 6 gm IH DAILY 04/02/17 04/02/17 History [Symbicort 160-4.5 Mcg Inhaler] Hydrocodone/Acetaminophen 1 each PO DAILY 04/02/17 04/02/17 History [Hydrocodon-Acetaminophn 10-325] Lisinopril [Lisinopril 2.5mg Tab] 2.5 mg PO DAILY 04/02/17 04/02/17 History Omeprazole [Omeprazole 20mg 20 mg PO DAILY 04/02/17 04/02/17 History Capsule] Allergies Allergy/AdvReac Type Severity Reaction Status Date / Time buspirone [From BuSpar] Allergy Severe SUICIDAL Verified 04/02/17 06:40 IDEATION prednisone Allergy Severe INTERNAL Verified 04/02/17 06:40 ORGANOMEGALY propoxyphene Allergy Severe RESPIRATORY Verified 04/02/17 06:40 [From Darvocet-N] DEPRESSION tramadol Allergy Severe SEVERE Verified 04/02/17 06:40 WITHDRAWAL adhesive Allergy Intermediate I-RASH Verified 04/02/17 06:40 bupropion [From Wellbutrin] Allergy Intermediate DEPRESSION Verified 04/02/17 06:40 codeine Allergy Intermediate LEG PAIN, Verified 04/02/17 06:40 STOMACH CRMPS cyclobenzaprine Allergy Intermediate MUSCLE Verified 04/02/17 06:40 [From Flexeril] SPASMS diclofenac [From Voltaren] Allergy Intermediate I-HIVES Verified 04/02/17 06:40 escitalopram [From Lexapro] Allergy Intermediate IRREGULAR Verified 04/02/17 06:40 HEART RATE, NUMBNESS,TINGLING gabapentin [From Neurontin] Allergy Intermediate I-ITCHING, Verified 04/02/17 06:40 SLURRED SPEECH, HEAD PAIN influenza virus vaccine, Allergy Intermediate I-RASH Verified 04/02/17
--- NOTE | 2017-04-05 07:22 | P.DS_ITS ---
General - General Admission date: 04/03/17 Discharge date: 04/04/17 HPI HPI: 37-year-old female with vague history of cardiac arrhythmia presented to the emergency department on the morning of April 03 with palpitations and chest pressure at home. In the emergency department patient was found to be in atrial fibrillation with rapid ventricular response. Attempts were made to get her tachycardia under control in the ER but were unsuccessful and the patient was admitted on a Cardizem drip. Objective Vital signs: Temp Pulse Resp BP Pulse Ox 98.3 F 70 16 124/69 96 04/04/17 11:50 04/04/17 13:42 04/04/17 11:50 04/04/17 11:50 04/04/17 11:50 Narrative: At discharge patient was in no distress. She was conversing without signs of dyspnea. HEENT exam was grossly normal. Neck is without lymphadenopathy or jugular venous distention. Lungs remain clear but deep breathing triggered cough. Heart rate was regular without murmurs. Abdomen is soft. Extremities had trace edema. Skin had a macular rash on the lower leg Hospital Course Hospital Course: Patient was admitted on a Cardizem drip which brought her heart rate under control. Serial troponins were checked and patient's troponin had risen to the level of 6. She was diagnosed with non-ST elevation PA and cardiology was consulted. Patient underwent cardiology consultation with left heart catheterization on April 03. Patient did not have any obstructive coronary artery disease. It was felt the non-STEMI was caused by demand ischemia from her tachycardia. Patient converted to a sinus rhythm. She was transitioned from intravenous Cardizem to oral Cardizem and discharged on this. Patient was given Lovenox on admission and transitioned to Coumadin at discharge. On the fourth she was discharged to home Results Labs on day of discharge: Labs from last 24 hours 04/04/17 09:15 PT 11.7 INR 1.08 DS: Diagnosis - Discharge Diagnosis (1) Atrial fibrillation with rapid ventricular response Status: Acute (2) Non-STEMI (non-ST elevated myocardial infarction) Status: Acute (3) Hypertension Status: Chronic (4) Non-Hodgkin lymphoma Status: Chronic (5) Rash Status: Acute Meds Home Medications Medication Instructions Recorded Confirmed Type ALPRAZolam [Alprazolam 0.25mg 0.25 mg PO DAILY 04/02/17 04/02/17 History Tab] Budesonide/Formoterol Fumarate 6 gm IH DAILY 04/02/17 04/02/17 History [Symbicort 160-4.5 Mcg Inhaler] Hydrocodone/Acetaminophen 1 each PO DAILY 04/02/17 04/02/17 History [Hydrocodon-Acetaminophn 10-325] Lisinopril [Lisinopril 2.5mg Tab] 2.5 mg PO DAILY 04/02/17 04/02/17 History Omeprazole [Omeprazole 20mg 20 mg PO DAILY 04/02/17 04/02/17 History Capsule] Allergies Allergy/AdvReac Type Severity Reaction Status Date / Time buspirone [From BuSpar] Allergy Severe SUICIDAL Verified 04/02/17 06:40 IDEATION prednisone Allergy Severe INTERNAL Verified 04/02/17 06:40 ORGANOMEGALY propoxyphene Allergy Severe RESPIRATORY Verified 04/02/17 06:40 [From Darvocet-N] DEPRESSION tramadol Allergy Severe SEVERE Verified 04/02/17 06:40 WITHDRAWAL adhesive Allergy Intermediate I-RASH Verified 04/02/17 06:40 bupropion [From Wellbutrin] Allergy
== END 2017-04-04 15:23 | disposition home or self-care (01) | DRG 280 ==
LOC: 2ND 11:24 → ICU 15:16
PROVIDERS: Emergency Medicine; Internal Medicine; Admitting Provider Internal Medicine Adolescent Medicine; Emergency Provider Family Medicine; Family Provider Family Medicine; PCP Family Medicine; Visit Provider Family Medicine
DX: I21.4 Non-ST elevation (NSTEMI) myocardial infarction (principal); I77.75 Dissection of other precerebral arteries; C85.90 Non-Hodgkin lymphoma, unspecified, unspecified site; I48.91 Unspecified atrial fibrillation; J44.9 Chronic obstructive pulmonary disease, unspecified
CPT/HCPCS: 36222; 36415; 71045; 80048; 80053; 82550; 82553; 83605; 84484; 85025; 85610; 86738; 87040; 87070; 87205; 93005; 93041; 93306; 93458; 93567; 94640; 96375; 99152; 99153; 99284; C1725; C1769; J1644; Q9967

== ENCOUNTER → 2017-04-11 09:31 | Outpatient (CLI) | payer MEDICARE, MEDICAID, SELFPAY ==
[2017-04-11 10:04] LABS: INR 2.39 (0.9-1.1)
--- NOTE | 2017-04-11 11:56 | XR_ITS ---
XR chest 2V HISTORY: ITS.REASON: LYMPHOMA ORDERING PHYSICIAN: Sunil Roque MD PATIENT AGE: 77 years COMPARISON: 04/02/2017 FINDINGS: There is cardiomegaly with mild pulmonary venous congestion suggesting mild CHF. No interstitial or alveolar edema. No effusions. No lobar consolidation or collapse no acute bony anomalies. IMPRESSION: Cardiomegaly with mild CHF.
== END ==
PROVIDERS: Family Provider Family Medicine; PCP Family Medicine; Visit Provider Family Medicine
DX: Z79.01 Long term (current) use of anticoagulants (principal); Z51.81 Encounter for therapeutic drug level monitoring
CPT/HCPCS: 36415; 71046; 85610; 87070; 87077; 87186; 87205; 93005

== ENCOUNTER → 2017-04-12 13:02 | Outpatient (CLI) | payer MEDICARE, MEDICAID, SELFPAY ==
[2017-04-12 14:43] LABS: Anion Gap 12.6 mEq/L (5-15); Blood Urea Nitrogen 28 mg/dL (7-18); Carbon Dioxide 31 mmol/L (21.0-32.0); Chloride 100 mmol/L (98-107); Creatinine,Serum 1.89 mg/dL (0.55-1.02); Estimated Glomerular Filt Rate 26 ml/min (>60); GFR (African American) 31 ML/MIN (>60); Glucose 128 mg/dL (74-106); Potassium 4.6 mmoL/L (3.5-5.1); Sodium 139 mmol/L (136-145)
== END ==
PROVIDERS: PCP Family Medicine; Visit Provider Internal Medicine Cardiovascular Disease
DX: I48.0 Paroxysmal atrial fibrillation (principal); I25.10 Atherosclerotic heart disease of native coronary artery without angina pectoris; I10 Essential (primary) hypertension; Z79.01 Long term (current) use of anticoagulants; Z51.81 Encounter for therapeutic drug level monitoring; C85.90 Non-Hodgkin lymphoma, unspecified, unspecified site; I50.23 Acute on chronic systolic (congestive) heart failure
CPT/HCPCS: 36415; 80048; 83880

== ENCOUNTER 2017-04-16 00:19 | Inpatient (IN) | payer MEDICARE, MEDICAID, SELFPAY ==
[2017-04-16] VITALS (32 sets, daily range): BP systolic 82–138; BP diastolic 50–91; PULSE 76–126; RESP 16–22; TEMP 36.7–37.1; O2SAT 90–96; BMI 32.8; BMI 33.2
--- NOTE | 2017-04-16 00:35 | XR_ITS ---
XR chest AP Ordering Physician: Mario Anderson MD Patient Age: 77 years: Female HISTORY: ITS.REASON: SOAsmoker quite 20 years ago. Dyspnea. Non-Hodgkin's lymphoma diagnosis. No radiation treatments thus far TECHNIQUE: AP upright CXR COMPARISON :April 11, 2017 CXR 2 view FINDINGS Cardiomegaly. Similar to previous study. No acute findings at the chest. Stable appearance to the lung nguyen. Fullness of the right paratracheal region most likely related to innominate vessel. A similar to previous studies. No new or acute findings. Tortuous aorta hilar region stable. Chest wall unchanged. IMPRESSION: Cardiomegaly again noted. No CHF Overall stable chest with nothing definite acute.
--- NOTE | 2017-04-16 00:42 | CT_ITS ---
CT head/brain wo con Ordering Physician: Sunil Roque MD Patient Age: 77 years: Female HISTORY: ITS.REASON: Dizziness TECHNIQUE: Routine CT axial and CT brain and bone windows performed and submitted to PACS. COMPARISON : No previous studies available for comparison FINDINGS . No acute intracranial findings. No territorial infarct. No hemorrhage. No mass or mass effect. No extra-axial collection. Mild cerebral atrophy age-appropriate most evident left cerebral hemisphere. Minimal physiologic calcification at basal ganglia bilateral. . The posterior fossa unremarkable.. Paranasal sinuses are well-developed and clear. Orbits unremarkable. Skull intact no lesions evident. Mastoid air cells, IACs and middle ear unremarkable bilateral. Engorgement nasal turbinates bilaterally instantly noted IMPRESSION: ...... 1. No acute intracranial findings. 2 Cerebral Atrophy. Age-appropriate.Slightly more evident at left cerebral hemisphere
[2017-04-16 01:15] LABS: Basophils # 0.1 K/mm3 (0-0.2); Basophils % 0.6 % (0.1-2.0); Eosinophils # 0.3 K/mm3 (0.0-0.4); Eosinophils % 2.8 % (0.1-12.0); Hematocrit 46.6 % (37.0-47.0); Hemoglobin 14.9 g/dL (12.2-16.2); Lymphocytes # 2.7 K/mm3 (0.7-4.5); Lymphocytes % 23.5 K/mm3 (10-50); Mean Corpuscular Hemoglobin 31.2 pg (27.0-31.2); Mean Corpuscular Volume 97.5 fl (81-99); Mean Platelet Volume 8.8 fl (7.4-10.4); Monocytes % 8.7 % (1.7-9.3); Neutrophils # 7.3 K/mm3 (1.8-7.8); Neutrophils % 64.5 % (37.0-80.0); Platelet Count 297 K/mm3 (142-424); Red Blood Count 4.77 M/mm3 (4.20-5.40); White Blood Count 11.3 K/mm3 (4.8-10.8)
[2017-04-16 01:19] LABS: Prothrombin Time 62.6 seconds (9.4-11.8)
[2017-04-16 01:28] LABS: Digoxin 0.52 ng/mL (1.15-2.56)
[2017-04-16 01:36] LABS: Alanine Aminotransferase 17 U/L (12-78); Albumin Level 3.3 gm/dL (3.4-5.0); Albumin/Globulin Ratio 0.9 (1.1-1.8); Alkaline Phosphatase 75 U/L (46-116); Anion Gap 13.2 mEq/L (5-15); Aspartate Amino Transferase 30 U/L (15-37); Bilirubin,Total 0.3 mg/dL (0.2-1.0); Blood Urea Nitrogen 22 mg/dL (7-18); Calcium 10.7 mg/dL (8.5-10.1); Carbon Dioxide 31 mmol/L (21.0-32.0); Chloride 100 mmol/L (98-107); Creatine Kinase 45 U/L (26-192); Creatinine Clearance Estimated 45 mL/min (0-300); Creatinine,Serum 1.54 mg/dL (0.55-1.02); Estimated Glomerular Filt Rate 32 ml/min (>60); GFR (African American) 39 ML/MIN (>60); Globulin 3.8 gm/dl (1.3-3.2); Glucose 120 mg/dL (74-106); Potassium 4.2 mmoL/L (3.5-5.1); Sodium 140 mmol/L (136-145); Thyroid Stimulating Hormone 4.88 uIU/ml (0.358-3.740); Total Protein,Serum 7.1 gm/dL (6.4-8.2); Troponin I 0.05 ng/ml (0.00-0.06)
[2017-04-16 01:38] LABS: CKMB Relative Index 1.1 U/L (0-4.0); Creatine Kinase MB < 0.5 mg/ml (0.0-3.6)
--- NOTE | 2017-04-16 02:09 | HMH.EDDIZZ ---
ED Disposition Clinical Impression: Atrial fibrillation with rapid ventricular response Non-Hodgkin lymphoma Qualifiers: Non-Hodgkin lymphoma type: other specified type Lymphoma site: unspecified region Qualified Code(s): C85.80 - Other specified types of non-Hodgkin lymphoma, unspecified site CHF exacerbation Qualifiers: Congestive heart failure type: systolic Qualified Code(s): I50.23 - Acute on chronic systolic (congestive) heart failure Disposition: Admitted As Inpatient Condition on Discharge: Fair Time of Disposition: 02:25 - Critical Care Critical Care Time: Yes Attestation: On 04/16/17, the high probability of a clinically significant, sudden or life threatening deterioration of the following system(s) required my full and direct attention, intervention and personal management. The time I documented below is in addition to time spent performing reported procedures but includes the following listed in this critical care notation. Total Critical Care Time: 35 Vital system(s) involved:: Circulatory Failure My critical care processes included: Assessment & monitoring of V/S, Initial and Re-exams, Data Review/Interpretation, Coordinating Care, Medication Orders and management, Documentation Medical Decision Making - Medical Records Medical records reviewed: Yes: I reviewed the patient's medical records. Vital Signs: 04/16/17 00:22 04/16/17 01:37 04/16/17 02:45 Temperature 98.3 F Temperature Source Oral Pulse Rate [Brachial] 94 H 110 H Respiratory Rate 18 16 Blood Pressure [Right Arm] 126/77 116/75 Blood Pressure Mean [Right Arm] 93 88 Blood Pressure Source [Right Arm] Automatic Cuff Blood Pressure Position [Right Arm] Sitting 02 Sat by Pulse Oximetry 94 L 94 L 93 L Oxygen Delivery Method Room Air Room Air Room Air - Lab Data Lab results reviewed: Yes: I reviewed the patient's lab results. Lab Results 04/16/17 00:45: WBC 11.3 H, RBC 4.77, Hgb 14.9, Hct 46.6, MCV 97.5, MCH 31.2, MCHC 32.0, RDW 13.0, Plt Count 297, MPV 8.8, Neut % (Auto) 64.5, Lymph % (Auto) 23.5, [place] % (Auto) 8.7, Eos % (Auto) 2.8, Baso % (Auto) 0.6, Neut # (Auto) 7.3, Lymph # (Auto) 2.7, [place] # (Auto) 1.0, Eos # (Auto) 0.3, Baso # (Auto) 0.1 04/16/17 00:45: B-Natriuretic Peptide 1960 H 04/16/17 00:45: PT 62.6 H, INR 5.70 H 04/16/17 00:45: Sodium 140, Potassium 4.2, Chloride 100, Carbon Dioxide 31, Anion Gap 13.2, BUN 22 H, Creatinine 1.54 H, Estimated Creat Clear 45, Estimated GFR 32 L, Est GFR ( Amer) 39 L, Glucose 120 H, Calcium 10.7 H, Total Bilirubin 0.3, AST 30, ALT 17, Alkaline Phosphatase 75, Total Creatine Kinase 45, CK-MB (CK-2) < 0.5 D, CK-MB (CK-2) Rel Index 1.1, Troponin I 0.05, Total Protein 7.1, Albumin 3.3 L, Globulin 3.8 H, Albumin/Globulin Ratio 0.9 L, TSH 4.88 H 04/16/17 00:45: Digoxin 0.52 L Result diagrams: 04/16/17 00:45 04/16/17 00:45 Orders (Tests/Meds): ED MEDICATIONS Generic Name Dose Route Start Last Admin Trade Name Freq PRN Reason Stop Dose Admin Diltiazem HCl 100 mg/ Sodium 100 mls @ 5 mls/hr 04/16/17 03:16 Chloride IV 05/16/17 02:29 .Q20H [facility] Protocol Discontinued Medications Generic Name Dose Route Start Last Admin Trade Name Freq PRN Reason Stop Dose Admin Hydrocodone Bitart/Acetaminophen 1 tab 04/16/17 09:00 Lortab 10/325mg Tablet PO 05/16/17 08:59 DAILY [facility] Alprazolam 0.25 mg 04/16/17 09:00 Xanax 0.25mg Tablet PO 05/16/17 08:59 DAILY [facility] Digoxin 250 mcg 04/16/17 02:01 04/16/17 02:07 Digoxin Injection 0.25mg/Ml IV 04/16/17 02:02 250 mcg ONCE ONE Administration Diltiazem HCl 20 mg 04/16/17 00:53 04/16/17 00:56 Cardizem 25mg/5ml Vial IV 04/16/17 00:54 20 mg ONCE ONE Administration Furosemide 10 mg 04/16/17 02:25 Lasix 100mg/10ml Vial IV 04/16/17 02:26 ONCE ONE Furosemide 20 mg 04/16/17 02:45 04/16/17 06:00 Lasix 20mg/2ml Vial IV 05/16/17 02:44 20 mg Q12H [facility] Adm
--- NOTE | 2017-04-16 02:24 | ED_ITS ---
ED Disposition Clinical Impression: Atrial fibrillation with rapid ventricular response Non-Hodgkin lymphoma Qualifiers: Non-Hodgkin lymphoma type: other specified type Lymphoma site: unspecified region Qualified Code(s): C85.80 - Other specified types of non-Hodgkin lymphoma , unspecified site CHF exacerbation Qualifiers: Congestive heart failure type: systolic Qualified Code(s): I50.23 - Acute on chronic systolic (congestive) heart failure Disposition: Admitted As Inpatient Condition on Discharge: Fair Time of Disposition: 02:25 - Critical Care Critical Care Time: Yes Attestation: On 04/16/17, the high probability of a clinically significant, sudden or life threatening deterioration of the following system(s) required my full and direct attention, intervention and personal management. The time I documented below is in addition to time spent performing reported procedures but includes the following listed in this critical care notation. Total Critical Care Time: 35 Vital system(s) involved:: Circulatory Failure My critical care processes included: Assessment & monitoring of V/S, Initial and Re-exams, Data Review/Interpretation, Coordinating Care, Medication Orders and management, Documentation Medical Decision Making - Medical Records Medical records reviewed: Yes: I reviewed the patient's medical records. Vital Signs: 04/16/17 00:22 04/16/17 01:37 04/16/17 02:45 Temperature 98.3 F Temperature Source Oral Pulse Rate [Brachial] 94 H 110 H Respiratory Rate 18 16 Blood Pressure [Right Arm] 126/77 116/75 Blood Pressure Mean [Right Arm] 93 88 Blood Pressure Source [Right Arm] Automatic Cuff Blood Pressure Position [Right Arm] Sitting 02 Sat by Pulse Oximetry 94 L 94 L 93 L Oxygen Delivery Method Room Air Room Air Room Air - Lab Data Lab results reviewed: Yes: I reviewed the patient's lab results. Lab Results 04/16/17 00:45: WBC 11.3 H, RBC 4.77, Hgb 14.9, Hct 46.6, MCV 97.5, MCH 31.2, MCHC 32.0, RDW 13.0, Plt Count 297, MPV 8.8, Neut % (Auto) 64.5, Lymph % (Auto) 23.5, [place] % (Auto) 8.7, Eos % (Auto) 2.8, Baso % (Auto) 0.6, Neut # (Auto) 7.3 , Lymph # (Auto) 2.7, [place] # (Auto) 1.0, Eos # (Auto) 0.3, Baso # (Auto) 0.1 04/16/17 00:45: B-Natriuretic Peptide 1960 H 04/16/17 00:45: PT 62.6 H, INR 5.70 H 04/16/17 00:45: Sodium 140, Potassium 4.2, Chloride 100, Carbon Dioxide 31, Anion Gap 13.2, BUN 22 H, Creatinine 1.54 H, Estimated Creat Clear 45, Estimated GFR 32 L, Est GFR ( Amer) 39 L, Glucose 120 H, Calcium 10.7 H, Total Bilirubin 0.3, AST 30, ALT 17, Alkaline Phosphatase 75, Total Creatine Kinase 45, CK-MB (CK-2) < 0.5 D, CK-MB (CK-2) Rel Index 1.1, Troponin I 0.05, Total Protein 7.1, Albumin 3.3 L, Globulin 3.8 H, Albumin/Globulin Ratio 0.9 L, TSH 4.88 H 04/16/17 00:45: Digoxin 0.52 L Result diagrams: 04/16/17 00:45 04/16/17 00:45 Orders (Tests/Meds): ED MEDICATIONS Generic Name Dose Route Start Last Admin Trade Name Freq PRN Reason Stop Dose Admin Diltiazem HCl 100 mg/ Sodium 100 mls @ 5 mls/hr 04/16/17 03:16 Chloride IV 05/16/17 02:29 .Q20H [facility] Protocol Discontinued Medications Generic Name Dose Route Start Last Admin Trade Name Freq PRN Reason Stop Dose Admin Hydrocodone Bitart/Acetaminophen 1 tab 04/16/17 09:00 Lortab 10/325mg Tablet PO 05/16/17 08:59 DAILY [facility]
--- NOTE | 2017-04-16 07:19 | HMH.HP ---
*Admission Date: 04/16/17 *Chief complaint: Visual disturbance *History of present illness: 77-year-old female with recent hospitalization for atrial fibrillation with rapid ventricular response presented to the emergency department yesterday after daylong episodes of visual disturbance that she describes as as if I was looking at a kaleidoscope . Patient had associated palpitations and sensation of racing heart. Recently her medications have been adjusted and she had been taken off of Cardizem and placed on digoxin for her atrial fibrillation. On presentation to the ER she was in A. fib again with rapid ventricular response, troponin was negative, BNP was abnormal, INR was supratherapeutic. Patient was placed on Cardizem drip and admitted. This morning she states she continues to have palpitations. She denies visual disturbance at the time of interview. Her biggest complaint is profuse sweating that occurs at home although it is not occurring here in the hospital. She is also frustrated by the fact that she was given a blood pressure medicine when she monitors her blood pressure at home and her blood pressures are normal. She was given a small dose of lisinopril at last discharge but is not taking this any longer. [facility] History I have reviewed the patient's past medical history: Yes Medical History: Reports:: Arrhythmia, Atrial Fibrillation, Cancer, Congestive Heart Failure, Coronary Artery Disease, Cerebrovascular Accident, Deep Vein Thrombosis, Gastroesophageal Reflux Disease, Hypertension, Myocardial Infarction, Peripheral Artery Disease Denies:: Diabetes Mellitus Type 1, Diabetes Mellitus Type 2 Other Medical History: Reports: Anemia, Arthritis, Chemotherapy, Hoarseness, Hypothyroidism, Sinus Problems, Thyroid Disease Comment: Lymphoma Laterality Cases: Left: Breast Biopsy, Bilateral: Tonsillectomy Other Surgeries: Yes: Cancer Surgery, Colonoscopy, , Skin Cancer Excision, Tubal Ligation Amputation: No Fractures: Yes - *Social History Educational Level: Attended College Smoking Status: Former smoker Tobacco Type: cigarettes #Yrs smoked (if former smoker): 40 Smoking End Date: 1997 Alcohol Intake: never Alcohol Intake Frequency:: other Occupational Status: retired Housing: house Household Members: none - Psychiatric History Expresses thoughts of harming self/others: None Suicide Plan Description: No Plan Pschychiatric History:: Reports:: Anxiety *Family Hx:: Coronary Artery Disease, Cancer Review of Systems - Review of Systems Review of systems:: pertinent systems reviewed and negative unless documented below - Constitutional Reports excessive sweating, Reports lack of energy, Reports night sweats, Denies chills, Denies fever(s) - Eyes Reports blurry vision - *Cardiovascular Reports excessive sweating, Reports irregular heart rhythm, Denies chest pain - *Respiratory Reports chest congestion, Reports cough, Reports shortness of breath Meds Home Medications Medication Instructions Recorded Confirmed Type ALPRAZolam [Alprazolam 0.25mg 0.25 mg PO DAILY 04/02/17 04/16/17 History Tab] Hydrocodone/Acetaminophen 1 each PO DAILY 04/02/17 04/16/17 History [Hydrocodon-Acetaminophn 10-325] Omeprazole [Omeprazole 20mg 20 mg PO DAILY 04/02/17 04/16/17 History Capsule] budesonide-formoterol HFA 160 2 puff INHALATION Q12H 04/12/17 04/16/17 History mcg-4.5 mcg/actuation aerosol inhaler Digoxin 125 mcg PO QDAY 04/16/17 04/16/17 History Furosemide [Furosemide 20mg Tab] 20 mg PO DAILY 04/16/17 04/16/17 History Levothyroxine Sodium 125 mcg PO DAILY 04/16/17 04/16/17 History [Levothyroxine 125mcg (0.125mg) Tab] Metoprolol Tartrate [Lopressor 50 mg PO BID 04/16/17 04/16/17 History 50mg tablet] Warfarin Sodium [Coumadin 5mg 5 mg PO DAILY 04/16/17 04/16/17 History tablet] Allergies Allergy/AdvReac Type Severity Reaction Status Date / Time buspirone [From BuSpar] Allergy Se
--- NOTE | 2017-04-16 07:22 | P.HP_ITS ---
*Admission Date: 04/16/17 *Chief complaint: Visual disturbance *History of present illness: 77-year-old female with recent hospitalization for atrial fibrillation with rapid ventricular response presented to the emergency department yesterday after daylong episodes of visual disturbance that she describes as as if I was looking at a kaleidoscope . Patient had associated palpitations and sensation of racing heart. Recently her medications have been adjusted and she had been taken off of Cardizem and placed on digoxin for her atrial fibrillation. On presentation to the ER she was in A. fib again with rapid ventricular response, troponin was negative, BNP was abnormal, INR was supratherapeutic. Patient was placed on Cardizem drip and admitted. This morning she states she continues to have palpitations. She denies visual disturbance at the time of interview. Her biggest complaint is profuse sweating that occurs at home although it is not occurring here in the hospital. She is also frustrated by the fact that she was given a blood pressure medicine when she monitors her blood pressure at home and her blood pressures are normal. She was given a small dose of lisinopril at last discharge but is not taking this any longer. [facility] History I have reviewed the patient's past medical history: Yes Medical History: Reports:: Arrhythmia, Atrial Fibrillation, Cancer, Congestive Heart Failure, Coronary Artery Disease, Cerebrovascular Accident, Deep Vein Thrombosis, Gastroesophageal Reflux Disease, Hypertension, Myocardial Infarction , Peripheral Artery Disease Denies:: Diabetes Mellitus Type 1, Diabetes Mellitus Type 2 Other Medical History: Reports: Anemia, Arthritis, Chemotherapy, Hoarseness, Hypothyroidism, Sinus Problems, Thyroid Disease Comment: Lymphoma Laterality Cases: Left: Breast Biopsy, Bilateral: Tonsillectomy Other Surgeries: Yes: Cancer Surgery, Colonoscopy, , Skin Cancer Excision, Tubal Ligation Amputation: No Fractures: Yes - *Social History Educational Level: Attended College Smoking Status: Former smoker Tobacco Type: cigarettes #Yrs smoked (if former smoker): 40 Smoking End Date: 1997 Alcohol Intake: never Alcohol Intake Frequency:: other Occupational Status: retired Housing: house Household Members: none - Psychiatric History Expresses thoughts of harming self/others: None Suicide Plan Description: No Plan Pschychiatric History:: Reports:: Anxiety *Family Hx:: Coronary Artery Disease, Cancer Review of Systems - Review of Systems Review of systems:: pertinent systems reviewed and negative unless documented below - Constitutional Reports excessive sweating, Reports lack of energy, Reports night sweats, Denies chills, Denies fever(s) - Eyes Reports blurry vision - *Cardiovascular Reports excessive sweating, Reports irregular heart rhythm, Denies chest pain - *Respiratory Reports chest congestion, Reports cough, Reports shortness of breath Meds Home Medications Medication Instructions Recorded Confirmed Type ALPRAZolam [Alprazolam 0.25mg 0.25 mg PO DAILY 04/02/17 04/16/17 History Tab] Hydrocodone/Acetaminophen 1 each PO DAILY 04/02/17 04/16/17 History [Hydrocodon-Acetaminophn 10325] Omeprazole [Omeprazole 20mg 20 mg PO DAILY 04/02/17 04/16/17 History Capsule] budesonide-formoterol HFA 160 2 puff INHALATION Q12H 04/12/17 04/16/17 History mcg-4.5 mcg/actuation aerosol inhaler Digoxin 125 mcg PO QDAY 04/16/17 04/16/17 History Furosemide [Furosemide 20mg Tab] 20 mg PO D
--- NOTE | 2017-04-16 07:33 | HMH.PHAVTE ---
[facility] Pharm[facility] VTE Monitoring - Patient Demographics Admission date: 04/16/17 Report Date: 04/16/17 Time: 07:33 Allergies/Adverse Reactions: buspirone [From BuSpar] Allergy (Severe, Verified 04/02/17 06:40) SUICIDAL IDEATION prednisone Allergy (Severe, Verified 04/02/17 06:40) INTERNAL ORGANOMEGALY propoxyphene [From Darvocet-N] Allergy (Severe, Verified 04/02/17 06:40) RESPIRATORY DEPRESSION tramadol Allergy (Severe, Verified 04/02/17 06:40) SEVERE WITHDRAWAL adhesive Allergy (Intermediate, Verified 04/02/17 06:40) I-RASH bupropion [From Wellbutrin] Allergy (Intermediate, Verified 04/02/17 06:40) DEPRESSION codeine Allergy (Intermediate, Verified 04/02/17 06:40) LEG PAIN, STOMACH CRMPS cyclobenzaprine [From Flexeril] Allergy (Intermediate, Verified 04/02/17 06:40) MUSCLE SPASMS diclofenac [From Voltaren] Allergy (Intermediate, Verified 04/02/17 06:40) I-HIVES escitalopram [From Lexapro] Allergy (Intermediate, Verified 04/02/17 06:40) IRREGULAR HEART RATE, NUMBNESS,TINGLING gabapentin [From Neurontin] Allergy (Intermediate, Verified 04/02/17 06:40) I-ITCHING, SLURRED SPEECH, HEAD PAIN influenza virus vaccine, specific [influenza virus vacc,specific] Allergy (Intermediate, Verified 04/02/17 06:40) I-RASH meloxicam [From Mobic] Allergy (Intermediate, Verified 04/02/17 06:40) SORES, ACNE, DIARRHEA naproxen [From Naprosyn] Allergy (Intermediate, Verified 04/02/17 06:40) STOMACH PAIN, CRAMPS Penicillins Allergy (Intermediate, Verified 04/02/17 06:40) I-HIVES promethazine [From Phenergan] Allergy (Intermediate, Verified 04/02/17 06:40) LOSS OF SPEECH, MUSCLE CONTRACTIONS, NAUSEA rosuvastatin [From Crestor] Allergy (Intermediate, Verified 04/02/17 06:40) NECK, LEG, AND JOINT PAIN; NUMBNESS simvastatin [From Vytorin] Allergy (Intermediate, Verified 04/02/17 06:40) TINGLING IN FEET & ANKLES; NUMBNESS tetanus and diphtheria toxoids [tetanus & diphtheria toxoids] Allergy (Intermediate, Verified 04/02/17 06:40) I-RASH, SWELLING, PAIN venlafaxine [From Effexor] Allergy (Intermediate, Verified 04/02/17 06:40) DISORIENTED venom-honey bee [bee venom (honey bee)] Allergy (Intermediate, Verified 04/02/17 06:40) SWELLING paroxetine [From Paxil] Allergy (Mild, Verified 04/02/17 06:40) DRY MOUTH, UNCONTROLLED HICCUPS sertraline [From Zoloft] Allergy (Mild, Verified 04/02/17 06:40) UNCONTROLLED HICCUPS duloxetine [From Cymbalta] Allergy (Unknown, Verified 04/02/17 06:40) ezetimibe [From Zetia] Allergy (Unknown, Verified 04/02/17 06:40) honey Allergy (Unknown, Verified 04/02/17 06:40) celecoxib [From Celebrex] Adverse Reaction (Mild, Verified 04/02/17 06:40) HEADACHE diazepam [From Valium] Adverse Reaction (Mild, Verified 04/02/17 06:40) HYPERACTIVE morphine Adverse Reaction (Mild, Verified 04/02/17 06:40) NA-NAUSEA/VOMITING; DISORIENTATION ULTRAVIOLET LIGHT Allergy (Unknown, Uncoded 03/20/17 15:01) CAT GUT SUTURES Adverse Reaction (Unknown, Uncoded 03/20/17 15:01) contrave Adverse Reaction (Uncoded 04/11/17 11:06) Height: 1.7 m Weight: 95.254 kg Patient Problems: Current Active Problems Atrial fibrillation with rapid ventricular response (Acute) Non-Hodgkin lymphoma (Chronic) CHF exacerbation (Acute) - VTE Risk Labs: VTE Related Lab Results Hgb 14.9 g/dL (12.2-16.2) 04/16/17 00:45 Hct 46.6 % (37.0-47.0) 04/16/17 00:45 Plt Count 297 K/mm3 (142-424) 04/16/17 00:45 PT 62.6 seconds (9.4-11.8) H 04/16/17 00:45 INR 5.70 (0.9-1.1) H 04/16/17 00:45 BUN 22 mg/dL (7-18) H 04/16/17 00:45 Creatinine 1.54 mg/dL (0.55-1.02) H 04/16/17 00:45 Estimated Creat Clear 45 mL/min (0-300) 04/16/17 00:45 Was VTE Risk Assessment Performed: Yes VTE Score: 3 VTE Risk Level: Low Risk - Prophylaxis VTE Prophylaxis Ordered?: Yes Types of VTE Prophylaxis: TEDS Knee High Location of Applied Device: Bilateral Lower Extremeties - VTE Diagnosis Confirmed
--- NOTE | 2017-04-16 07:41 | PC.NURSE ---
PT ARRIVED TO FLOOR ON CARDIZEM GTT. HR ELEVATED. GTT WAS TITRATED. PT CURRENTLY HAS CARDIZEM GTT INFUSING @ 15 MG/HR. B/P STABLE. WAS NOTIFIED DURING ROUNDS THAT PT HAD 7 BEAT RUN OF VTACH. NO OTHER CONCERNS NOTED AT THIS TIME. WILL CONTINUE TO MONITOR.
--- NOTE | 2017-04-16 08:02 | PC.NURSE ---
REPORT HANDED OFF TO Migue DYER
--- NOTE | 2017-04-16 08:25 | PC.NURSE ---
spoke with md on phone about patient complaints of pain and needing her home pain medication. md stated that he put all the home meds in he wanted her to have. upon looking at mar it was noticed that home meds ordered were under discontinued, and md gave the okay to reorder the ones he tried to order this morning.
--- NOTE | 2017-04-16 09:35 | HMH.CARDCON2 ---
History of Present Illness Consult date: 04/16/17 Requesting physician: Sunil Roque Consult reason: chest pain, atrial fibrillation Chief complaint: Chest pain, palpitations History of present illness: 77-year-old white female with history of atrial fibrillation who was recently admitted earlier this month for an episode of atrial fibrillation with a rapid ventricular response which resulted in demand ischemia and elevated troponins. She subsequently did undergo cardiac catheterization revealing [id number] coronary disease. Medication changes were made and patient was discharged home. She was seen in the office last week at the request of her oncologist, Dr. Mcintyre, due to a rapid heart rate. Patient essentially had failed Cartia therapy and at that time was switched to metoprolol 50 mg twice daily at the office visit last week. According to the patient this has resulted in some low blood pressures at home and patient has quit taking her medication with resultant rapid heart rate and readmission yesterday. She is on a Cardizem drip at this time with rates in the 120-140s. Troponins have been normal this admission. EKG is atrial fibrillation with left axis deviation, right bundle branch block and chronic ST segment abnormalities in the inferolateral leads suggestive of ischemia/WA pattern. Cardiology consulted for evaluation and recommendations per Review of Systems - *Cardiovascular Reports chest pain, Reports irregular heart rhythm - *Respiratory Reports shortness of breath with activity [facility] History Medical History: Reports:: Arrhythmia, Atrial Fibrillation, Cancer, Congestive Heart Failure, Coronary Artery Disease, Cerebrovascular Accident, Deep Vein Thrombosis, Gastroesophageal Reflux Disease, Hypertension, Myocardial Infarction, Peripheral Artery Disease Denies:: Diabetes Mellitus Type 1, Diabetes Mellitus Type 2 Other Medical History: Reports: Anemia, Arthritis, Chemotherapy, Hoarseness, Hypothyroidism, Sinus Problems, Thyroid Disease Laterality Cases: Left: Breast Biopsy, Bilateral: Tonsillectomy Other Surgeries: Yes: Cancer Surgery, Colonoscopy, , Skin Cancer Excision, Tubal Ligation Amputation: No Fractures: Yes - *Social History Educational Level: Attended College Smoking Status: Former smoker Tobacco Type: cigarettes #Yrs smoked (if former smoker): 40 Smoking End Date: 1997 Alcohol Intake: never Alcohol Intake Frequency:: other Occupational Status: retired Housing: house Household Members: none - Psychiatric History Expresses thoughts of harming self/others: None Suicide Plan Description: No Plan Pschychiatric History:: Reports:: Anxiety *Family Hx:: Coronary Artery Disease, Cancer Meds Home Medications Medication Instructions Recorded Confirmed Type ALPRAZolam [Alprazolam 0.25mg 0.25 mg PO DAILY 04/02/17 04/16/17 History Tab] Hydrocodone/Acetaminophen 1 each PO QIDP PRN 04/02/17 04/16/17 History [Hydrocodon-Acetaminophn 10-325] Omeprazole [Omeprazole 20mg 20 mg PO DAILY 04/02/17 04/16/17 History Capsule] budesonide-formoterol HFA 160 2 puff INHALATION Q12H 04/12/17 04/16/17 History mcg-4.5 mcg/actuation aerosol inhaler Digoxin 125 mcg PO DAILY 04/16/17 04/16/17 History Furosemide [Furosemide 20mg Tab] 20 mg PO DAILY 04/16/17 04/16/17 History Levothyroxine Sodium 125 mcg PO DAILY 04/16/17 04/16/17 History [Levothyroxine 125mcg (0.125mg) Tab] Lisinopril [Lisinopril 2.5mg Tab] 2.5 mg PO DAILY 04/16/17 04/16/17 History Metoprolol Tartrate [Lopressor 50 mg PO BID 04/16/17 04/16/17 History 50mg tablet] Warfarin Sodium [Coumadin 5mg 5 mg PO DAILY 04/16/17 04/16/17 History tablet] dilTIAZem HCl [Cartia Xt] 240 mg PO DAILY 04/16/17 04/16/17 History Allergies Allergy/AdvReac Type Severity Reaction Status Date / Time buspirone [From BuSpar] Allergy Severe SUICIDAL Verified 04/02/17 06:40 IDEATION prednisone Allergy Severe INTERNAL Verified
--- NOTE | 2017-04-16 09:40 | P.CONS_ITS ---
History of Present Illness Consult date: 04/16/17 Requesting physician: Sunil Roque Consult reason: chest pain, atrial fibrillation Chief complaint: Chest pain, palpitations History of present illness: 77-year-old white female with history of atrial fibrillation who was recently admitted earlier this month for an episode of atrial fibrillation with a rapid ventricular response which resulted in demand ischemia and elevated troponins. She subsequently did undergo cardiac catheterization revealing non-flow- limiting coronary disease. Medication changes were made and patient was discharged home. She was seen in the office last week at the request of her oncologist, Dr. Mcintyre, due to a rapid heart rate. Patient essentially had failed Cartia therapy and at that time was switched to metoprolol 50 mg twice daily at the office visit last week. According to the patient this has resulted in some low blood pressures at home and patient has quit taking her medication with resultant rapid heart rate and readmission yesterday. She is on a Cardizem drip at this time with rates in the 120-140s. Troponins have been normal this admission. EKG is atrial fibrillation with left axis deviation , right bundle branch block and chronic ST segment abnormalities in the inferolateral leads suggestive of ischemia/DC pattern. Cardiology consulted for evaluation and recommendations per Review of Systems - *Cardiovascular Reports chest pain, Reports irregular heart rhythm - *Respiratory Reports shortness of breath with activity [facility] History Medical History: Reports:: Arrhythmia, Atrial Fibrillation, Cancer, Congestive Heart Failure, Coronary Artery Disease, Cerebrovascular Accident, Deep Vein Thrombosis, Gastroesophageal Reflux Disease, Hypertension, Myocardial Infarction , Peripheral Artery Disease Denies:: Diabetes Mellitus Type 1, Diabetes Mellitus Type 2 Other Medical History: Reports: Anemia, Arthritis, Chemotherapy, Hoarseness, Hypothyroidism, Sinus Problems, Thyroid Disease Laterality Cases: Left: Breast Biopsy, Bilateral: Tonsillectomy Other Surgeries: Yes: Cancer Surgery, Colonoscopy, , Skin Cancer Excision, Tubal Ligation Amputation: No Fractures: Yes - *Social History Educational Level: Attended College Smoking Status: Former smoker Tobacco Type: cigarettes #Yrs smoked (if former smoker): 40 Smoking End Date: 1997 Alcohol Intake: never Alcohol Intake Frequency:: other Occupational Status: retired Housing: house Household Members: none - Psychiatric History Expresses thoughts of harming self/others: None Suicide Plan Description: No Plan Pschychiatric History:: Reports:: Anxiety *Family Hx:: Coronary Artery Disease, Cancer Meds Home Medications Medication Instructions Recorded Confirmed Type ALPRAZolam [Alprazolam 0.25mg 0.25 mg PO DAILY 04/02/17 04/16/17 History Tab] Hydrocodone/Acetaminophen 1 each PO QIDP PRN 04/02/17 04/16/17 History [Hydrocodon-Acetaminophn 10-325] Omeprazole [Omeprazole 20mg 20 mg PO DAILY 04/02/17 04/16/17 History Capsule] budesonide-formoterol HFA 160 2 puff INHALATION Q12H 04/12/17 04/16/17 History mcg-4.5 mcg/actuation aerosol inhaler Digoxin 125 mcg PO DAILY 04/16/17 04/16/17 History Furosemide [Furosemide 20mg Tab] 20 mg PO DAILY 04/16/17 04/16/17 History Levothyroxine Sodium 125 mcg PO DAILY 04/16/17 04/16/17 History [Levothyroxine 125mcg (0.125mg) Tab] Lisinopril [Lisinopril 2.5mg Tab] 2.5 mg PO DAILY 04/16/17 04/16/17 History M
--- NOTE | 2017-04-16 18:42 | PC.NURSE ---
PATIENT HAS BEEN PLEASANT THIS SHIFT. DID STATE MULTIPLE TIMES ABOUT BEING NONCOMPLIANT WITH HOME MEDS BECAUSE SHE THINKS HER BP HAS BEEN LOW ORTHOSTATICS WERE OBTAINED ON PATIENT AT 1315 AND CHARTED ACCORDINGLY, WITH A DROP NOTICED IN BP WITH CHANGE OF POSITION. CURRENTLY ON 5ML/HR OF CARDIZEM TITRATING UP NEEDED. HEART RATE HAS STARTED TO GO UP AT THIS TIME HAD BEEN RANGING 60-100S NOW STARTING TO RANGE 120S.
[2017-04-17] VITALS (24 sets, daily range): BP systolic 92–135; BP diastolic 48–86; PULSE 62–125; RESP 11–22; TEMP 36.2–36.7; O2SAT 91–96
--- NOTE | 2017-04-17 07:16 | HMH.ACPN ---
Internal Medicine - PN: Subj *Date: 04/17/17 *Time: 07:16 Interval history: Patient primarily complains of cough this morning. Nursing staff reports the patient did well overnight although heart rate continues to rise above 100 at times especially with activity. She remains in atrial fibrillation. I greatly appreciate cardiology's assistance with management of this patient. Exam Vital signs and Labs for Last 24 Hours: Temp Pulse Resp BP Pulse Ox 97.4 F L 99 H 18 118/65 95 04/17/17 04:00 04/17/17 04:00 04/17/17 04:00 04/17/17 04:00 04/17/17 04:00 I & O for Last 24 hours: Intake & Output 04/14/17 04/15/17 04/16/17 04/17/17 11:59 11:59 11:59 11:59 Intake Total 720 / 720 720 / 720 Balance 720 / 720 720 / 720 Weight 212 lb 215 lb Narrative: She is in no distress but does have frequent dry cough during interview. Lungs have bibasilar crackles. Heart is irregularly irregular. Fits of coughing will cause increase in heart rate to the 130s. Assessment and Plan (1) Atrial fibrillation with rapid ventricular response Current visit: Yes Status: Acute Category: Medical Code(s): I48.91 - Unspecified atrial fibrillation (2) Non-Hodgkin lymphoma Current visit: Yes Status: Chronic Qualifiers: Non-Hodgkin lymphoma type: other specified type Lymphoma site: unspecified region Qualified Code(s): C85.80 - Other specified types of non-Hodgkin lymphoma, unspecified site Category: Medical Code(s): C85.90 - Non-Hodgkin lymphoma, unspecified, unspecified site - Assessment and plan all Dx Assessment and Plan for all problems:: I am going to go on and stop her Cardizem drip and increase her metoprolol to 50 mg twice daily. It was emphasized by cardiology and I will reemphasized to the patient that the Lopressor is controlling her heart rate and should not be viewed so much as a blood pressure medicine. I will order another dose of Lasix for the patient this morning. Await INR as it was supratherapeutic.
--- NOTE | 2017-04-17 07:35 | PC.NURSE ---
REPORT GIVEN TO Radha DIAZ
--- NOTE | 2017-04-17 08:06 | PC.NURSE ---
PT RESTING IN BED. SHE IS CURRENTLY AFIB WITH BBB ON TELEMETRY. SHE HAS ALSO HAD FREQUENT PVC'S. PT IS CURRENTLY ON A CARDIZEM GTT. SHE WAS TITRATED UP FROM 5 MG TO 10 MG @ 0200 DUE TO HR INCREASING. SHE HAS C/O OF DISCOMFORT TO HER BACK. WAS MEDICATED PER MAY. FINE CRACKLES NOTED TO LUNGS. SHE HAS BEEN COUGHING T/O THE NIGHT. SHE HAS AMBULATED TO THE BATHROOM. NO OTHER CONCERNS NOTED AT THIS TIME. WILL CONTINUE TO MONITOR.
[2017-04-17 08:12] LABS: INR 3.53 (0.9-1.1); Prothrombin Time 38.6 seconds (9.4-11.8)
--- NOTE | 2017-04-17 10:55 | HMH.CARDPN2 ---
Subjective PN (PG) Date: 04/17/17 Time: 09:30 Interval history: 77 yo WF in bed in NAD. Still on IV diltiazem along with increased PO metoprolol. Rates hovering about 100 bpm. BP systolic is in the 90-110 mm Hg range. Some complaint of dizziness. Will try to switch to PO verapamil and discontinue cardizem. IF this combination doesn't work to control the rate without dropping the BP, then will consider switching to sotalol since recent cardiac cath shows no significant CAD. PN Exam ([facility]) Vital signs: Temp Pulse Resp BP Pulse Ox 98.1 F 97 H 21 99/70 93 L 04/17/17 09:00 04/17/17 09:00 04/17/17 09:00 04/17/17 09:00 04/17/17 09:00 - Routine Respiratory Exam Present: CTA bilaterally - Routine Cardiovascular Exam Present: murmur, irregularly irregular - Routine Extremities Exam Present: edema A/P Progress Note ([facility]) (1) Atrial fibrillation with rapid ventricular response Status: Acute Assessment and plan: Will try combo of metoprolol and verapamil for rate control. With enlarged left atrium on echo earlier this month, doubt we will be able to maintain NSR but could try with Sotalol since there is concern about supratherapeutic INR on admission. Current Visit: Yes (2) Non-Hodgkin lymphoma Status: Chronic Current Visit: Yes (3) Hypertension Status: Chronic Current Visit: No
--- NOTE | 2017-04-17 11:00 | P.PN_ITS ---
Subjective PN (PG) Date: 04/17/17 Time: 09:30 Interval history: 77 yo WF in bed in NAD. Still on IV diltiazem along with increased PO metoprolol. Rates hovering about 100 bpm. BP systolic is in the 90-110 mm Hg range. Some complaint of dizziness. Will try to switch to PO verapamil and discontinue cardizem. IF this combination doesn't work to control the rate without dropping the BP, then will consider switching to sotalol since recent cardiac cath shows no significant CAD. PN Exam ([facility]) Vital signs: Temp Pulse Resp BP Pulse Ox 98.1 F 97 H 21 99/70 93 L 04/17/17 09:00 04/17/17 09:00 04/17/17 09:00 04/17/17 09:00 04/17/17 09:00 - Routine Respiratory Exam Present: CTA bilaterally - Routine Cardiovascular Exam Present: murmur, irregularly irregular - Routine Extremities Exam Present: edema A/P Progress Note ([facility]) (1) Atrial fibrillation with rapid ventricular response Status: Acute Assessment and plan: Will try combo of metoprolol and verapamil for rate control. With enlarged left atrium on echo earlier this month, doubt we will be able to maintain NSR but could try with Sotalol since there is concern about supratherapeutic INR on admission. Current Visit: Yes (2) Non-Hodgkin lymphoma Status: Chronic Current Visit: Yes (3) Hypertension Status: Chronic Current Visit: No
--- NOTE | 2017-04-17 14:52 | PC.NURSE ---
Pt resting in bed, complaint t/o shift of pain in back, given prn pain med for this with relief after medicine given. vss, drip stopped around 1200, hr remains in 80s some low 90s noted at times. pt states she feels better than she did this am. some dizziness noted but pt states that has improved t/o shift. has been up to bathroom with no assistance and has tolerated well. Will continue to monitor
--- NOTE | 2017-04-17 19:20 | PC.NURSE ---
REPORT RECEIVED FROM LINN.RACHEAL
--- NOTE | 2017-04-17 22:13 | PC.NURSE ---
Alexi Do RN notified of 15 beat run V-Tach noted on monitor. Strip obtained and will place on chart.
[2017-04-18] VITALS (12 sets, daily range): BP systolic 96–125; BP diastolic 54–79; PULSE 70–130; RESP 18–22; TEMP 35.8–36.8; O2SAT 88–97; BMI 33.0
--- NOTE | 2017-04-18 05:49 | PC.NURSE ---
PT C/O BACK AND NECK PAIN AT BEGINNING OF SHIFT, STATES THIS IS A CHRONIC CONDITION, PAIN MED GIVEN. IV SECURE AND PATENT X2-SL. TEDS ON. PT HAS INR THIS AM. I/S AT BEDSIDE AND ENCOURAGED TO USE IT HOURLY WHEN AWAKE. PT ON MONITOR. CONTINUES TO RUN A-FIB WITH BBB ON MONITOR. PT HAD 15 BEAT RUN OF VTACH AT 2210. PT HAS SLEPT WELL THIS SHIFT. CONTINUES ON 2LNC. RESPIRATIONS EVEN AND UNLABORED, BREATH SOUNDS CLEAR T/O. NO FURTHER C/O PAIN OR DISCOMFORT REPORTED. PT STABLE. WILL CONTINUE TO MONITOR. REPORT TO BE GIVEN TO ONCOMING NURSE.
--- NOTE | 2017-04-18 06:52 | XR_ITS ---
XR chest 2V HISTORY: ITS.REASON: Cough ORDERING PHYSICIAN: Sunil Roque MD PATIENT AGE: 77 years COMPARISON: 04/16/2017 FINDINGS: Cardiomegaly without failure.. The lungs are clear without infiltrates, suspicious nodules, or pleural effusions. No acute bony abnormalities. IMPRESSION: Cardiomegaly, mild CHF has improved since previous exam
[2017-04-18 06:54] LABS: INR 2.75 (0.9-1.1)
--- NOTE | 2017-04-18 06:56 | P.PN_ITS ---
Internal Medicine - PN: Subj *Date: 04/18/17 *Time: 06:53 Interval history: Patient only complaint this morning is her persistent hacking cough which is now producing small amounts of clear sputum. She would also like shower. Heart rate did decrease to the 80s yesterday afternoon but overnight his risen again to above 100 and is recorded at a maximum of 130. Patient has had very little activity and is frustrated by not being out of bed. Exam Vital signs and Labs for Last 24 Hours: Vital Signs Temp Pulse Pulse Resp BP Pulse Ox 04/18/17 04:00 98.1 F 130 H 109 H 18 101/73 91 L 04/18/17 00:00 96.4 F L 100 H 101 H 18 103/63 92 L 04/17/17 22:10 100 H 04/17/17 21:10 87 92 L 04/17/17 20:00 97.2 F L 80 87 22 109/75 92 L 04/17/17 19:00 97.5 F L 62 11 L 107/86 94 L Temp Pulse Resp BP Pulse Ox 98.1 F 109 H 18 101/73 91 L 04/18/17 04:00 04/18/17 04:00 04/18/17 04:00 04/18/17 04:00 04/18/17 04:00 Laboratory Results - last 24 hr 04/17/17 06:47: PT 38.6 H, INR 3.53 H I & O for Last 24 hours: Intake & Output 04/15/17 04/16/17 04/17/17 04/18/17 11:59 11:59 11:59 11:59 Intake Total 720 / 720 1021 / 1021 1600 / 1600 Output Total 1500 / 1500 Balance 720 / 720 1021 / 1021 100 / 100 Weight 212 lb 215 lb Narrative: She is awake and alert. Conversation is frequently interrupted by coughing. Lungs have resolution of crackles that were at the left base and she still has fate right-sided crackles at the right base. These seem to improve with repeated deep breathing and cough. Heart rate remains irregularly irregular. Assessment and Plan (1) Atrial fibrillation with rapid ventricular response Current visit: Yes Status: Acute Category: Medical Code(s): I48.91 - Unspecified atrial fibrillation (2) Non-Hodgkin lymphoma Current visit: Yes Status: Chronic Qualifiers: Non-Hodgkin lymphoma type: other specified type Lymphoma site: unspecified region Qualified Code(s): C85.80 - Other specified types of non-Hodgkin lymphoma, unspecified site Category: Medical Code(s): C85.90 - Non-Hodgkin lymphoma, unspecified, unspecified site - Assessment and plan all Dx Assessment and Plan for all problems:: I have encouraged the patient to ambulate to see what her heart rate will do in response to activity And she will be allowed to shower this morning. Chest x- ray has been ordered due to the patient's increasing cough. Viral respiratory panel has been ordered due to the atypical presentation of the flu that is in the community as well as her cough. Await cardiology evaluation to see if any further changes in medications are planned.
--- NOTE | 2017-04-18 07:30 | PC.NURSE ---
REPORT GIVEN TO Jayla RASCON W/C
--- NOTE | 2017-04-18 12:59 | HMH.CARDPN2 ---
Subjective PN (PG) Date: 04/18/17 Time: 12:59 Principal diagnosis: A. fib with RVR Interval history: 77 yo WF at bedside in NAD. Telemetry shows A. fib with rates in the 85-110 bpm range. Pt with complaints of feeling lightheaded and funny at times when moving about the room. Denies any chest pain or SOA. PN Exam ([facility]) Vital signs: Temp Pulse Resp BP Pulse Ox 97.2 F L 95 H 22 96/54 92 L 04/18/17 11:46 04/18/17 11:46 04/18/17 11:46 04/18/17 11:46 04/18/17 11:46 - Routine Respiratory Exam Present: CTA bilaterally - Routine Cardiovascular Exam Present: irregular rhythm A/P Progress Note ([facility]) (1) Atrial fibrillation with rapid ventricular response Status: Acute Assessment and plan: Long discussion with patient by Dr. Nelson regarding options for treatment including medications, ablation and pacemaker related options. Strongly recommended patient give medications time to work and remain compliant with them without self adjusting them. Pt was receptive and wished for invasive procedures only as a last resort. Will continue combination of verapamil and metoprolol along with anticoagulation in the form of warfarin. Recommend patient be n.p.o. after midnight for possible transesophageal echocardiogram and cardioversion consideration by Dr. Lorenzo tomorrow. Current Visit: Yes (2) Non-Hodgkin lymphoma Status: Chronic Current Visit: Yes (3) Hypertension Status: Chronic Current Visit: No - Time Spent With Patient 25 - 35 minutes
--- NOTE | 2017-04-18 13:50 | P.PN_ITS ---
Subjective PN (PG) Date: 04/18/17 Time: 12:59 Principal diagnosis: A. fib with RVR Interval history: 77 yo WF at bedside in NAD. Telemetry shows A. fib with rates in the 85-110 bpm range. Pt with complaints of feeling lightheaded and funny at times when moving about the room. Denies any chest pain or SOA. PN Exam ([facility]) Vital signs: Temp Pulse Resp BP Pulse Ox 97.2 F L 95 H 22 96/54 92 L 04/18/17 11:46 04/18/17 11:46 04/18/17 11:46 04/18/17 11:46 04/18/17 11:46 - Routine Respiratory Exam Present: CTA bilaterally - Routine Cardiovascular Exam Present: irregular rhythm A/P Progress Note ([facility]) (1) Atrial fibrillation with rapid ventricular response Status: Acute Assessment and plan: Long discussion with patient by Dr. Nelson regarding options for treatment including medications, ablation and pacemaker related options. Strongly recommended patient give medications time to work and remain compliant with them without self adjusting them. Pt was receptive and wished for invasive procedures only as a last resort. Will continue combination of verapamil and metoprolol along with anticoagulation in the form of warfarin. Recommend patient be n.p.o. after midnight for possible transesophageal echocardiogram and cardioversion consideration by Dr. Lorenzo tomorrow. Current Visit: Yes (2) Non-Hodgkin lymphoma Status: Chronic Current Visit: Yes (3) Hypertension Status: Chronic Current Visit: No - Time Spent With Patient 25 - 35 minutes
--- NOTE | 2017-04-18 18:17 | PC.NURSE ---
pt heart rate has been from 70s to 115 this shift. pt states she feels good today the best she has felt. pt has some faint crackles in the bases and has been coughing up small amounts of yellowish sputum. pt has worn her O2 off and on today. teds are on. nonskids at bedside. pt ambulated in room today and got up and took a shower without any complications. will continue to monitor pt condition. will give report to oncoming nurse.
[2017-04-18 18:52] LABS: Adenovirus,PCR Not Detected (NotDetected); Bordetella Pertussis Not Detected (NotDetected); Chlamydophila Pneumoniae, PCR Not Detected (NotDetected); Coronavirus 229E Not Detected (NotDetected); Coronavirus NL63 Not Detected (NotDetected); Coronavirus OC43 Not Detected (NotDetected); Coronovirus HKU1,PCR Not Detected (NotDetected); Human Metapneumovirus Not Detected (NotDetected); Influenza A, PCR Not Detected (NotDetected); Influenza AH1, 2009 Not Detected (NotDetected); Influenza AH1, PCR Not Detected (NotDetected); Influenza AH3,PCR Not Detected (NotDetected); Influenza B, PCR Not Detected (NotDetected); Mycoplasma Pneumoniae, PCR Not Detected (NotDected); Parainfluenza 1, PCR Not Detected (NotDetected); Parainfluenza 2, PCR Not Detected (NotDetected); Parainfluenza 3, PCR Detected (NotDetected); Parainfluenza 4, PCR Not Detected (NotDetected); Respiratory Syncytial Virus Not Detected (NotDetected); Rhinovirus/Enterovirus Not Detected (NotDetected)
--- NOTE | 2017-04-18 20:14 | PC.NURSE ---
pt had no oxygen on at this time
[2017-04-19] VITALS (11 sets, daily range): BP systolic 97–118; BP diastolic 58–77; PULSE 82–130; RESP 20–22; TEMP 36.7–37.6; O2SAT 87–98
--- NOTE | 2017-04-19 02:47 | PC.NURSE ---
no changes from previous assessment, pt states she is feeling well this evening, pt states her chest hurts when she coughs, she says her only complaint is she is coughing frequently which disrupts sleep, pt began shift on 2l nc, O2 sats dipped to low 80's and sustained, pt was placed on 3 L NC and recovered well maintaining sats above 90, crackles noted to the bilateral bases, HR has ranged from 110-130 this shift, bowle sounds are active, no acute distress noted at this time, call light in reach, will continue to monitor.
[2017-04-19 06:49] LABS: Prothrombin Time 22.8 seconds (9.4-11.8)
--- NOTE | 2017-04-19 07:06 | SW/DCPLANNER ---
PATIENT ADMITTED TO [facility] WITHAFIB WITH RVR AND CHF...PATIENT RESIDES AT HOME AND STATED SHE HAD NOT BEEN FEELING WELL FOR SOMETIME. SHE HAD A CARDIOLOGY CONSULT AND RECOMMENDATIONS WERE MADE, PATIEN STATED SHE MAY END UP WITH A PACEMAKER IF THINGS DON'T CHANGE. HER DISCHARGE PLAN IS TO RETURN BACK HOME POST HOSPITAL STAY AND IF ANY HOME CARE IS NECESSARY IT WILL BE SET UP AT TIME OF DISPOSITION... CM WILL FOLLOW AND ASSIST INDICATED BY MD..
--- NOTE | 2017-04-19 07:12 | HMH.ACPN ---
Internal Medicine - PN: Subj *Date: 04/19/17 *Time: 07:12 Interval history: Patient has no complaints this morning. Review of vital signs over the day yesterday show that patient's heart rate fluctuated from the 80s to as high as 130 around midnight. Patient did have paroxysms of cough that caused hypoxia. O2 sats dropped down into the 80s and required application of nasal cannula. Chest x-ray performed yesterday showed improvement in CHF that was present on admission. Exam Vital signs and Labs for Last 24 Hours: Temp Pulse Resp BP Pulse Ox 98.1 F 90 20 118/77 95 04/19/17 04:00 04/19/17 04:00 04/19/17 04:00 04/19/17 04:00 04/19/17 04:00 Laboratory Results - last 24 hr 04/18/17 : Chlamy pneumoniae PCR Not detected, Adenovirus (PCR) Not detected, B.parapertussis DNA PCR Not detected, Coronavirus OC43 (PCR) Not detected, Coronavirus HKU1 (PCR) Not detected, Coronavirus 229E (PCR) Not detected, Coronavirus NL63 (PCR) Not detected, Human Metapneumovir PCR Not detected, Influenza A (H1) PCR Not detected, Influ A (H1N1/09) PCR Not detected, Influenza A (H3) PCR Not detected, Influenza Type A (PCR) Not detected, Influenza Type B (PCR) Not detected, M. pneumoniae (PCR) Not detected, Parainfluenza 1 (PCR) Not detected, Parainfluenza 2 (PCR) Not detected, Parainfluenza 3 (PCR) Detected A, Parainfluenza 4 (PCR) Not detected, RSV (PCR) Not detected, Entero/Rhino (PCR) Not detected 04/19/17 06:10: PT 22.8 H, INR 2.10 H I & O for Last 24 hours: Intake & Output 04/16/17 04/17/17 04/18/17 04/19/17 11:59 11:59 11:59 11:59 Intake Total 720 / 720 1021 / 1021 1600 / 1600 960 / 960 Output Total 1500 / 1500 Balance 720 / 720 1021 / 1021 100 / 100 960 / 960 Weight 212 lb 215 lb 210 lb 9 oz 212 lb 2 oz Narrative: Patient is in no distress this morning. She has some mild hacking cough. Lung exam reveals bibasilar crackles, right greater than left. Heart is irregularly irregular. Assessment and Plan (1) Atrial fibrillation with rapid ventricular response Current visit: Yes Status: Acute Category: Medical Code(s): I48.91 - Unspecified atrial fibrillation (2) Non-Hodgkin lymphoma Current visit: Yes Status: Chronic Qualifiers: Non-Hodgkin lymphoma type: other specified type Lymphoma site: unspecified region Qualified Code(s): C85.80 - Other specified types of non-Hodgkin lymphoma, unspecified site Category: Medical Code(s): C85.90 - Non-Hodgkin lymphoma, unspecified, unspecified site (3) Parainfluenza virus bronchitis Current visit: Yes Status: Acute Category: Medical Code(s): J20.4 - Acute bronchitis due to parainfluenza virus - Assessment and plan all Dx Assessment and Plan for all problems:: Await cardiology evaluation this morning and consideration of JUAN with cardioversion. Encourage the patient to continue ambulating and use incentive spirometer.
[2017-04-19 08:18] LABS: Anion Gap 6.2 mEq/L (5-15); Blood Urea Nitrogen 32 mg/dL (7-18); Carbon Dioxide 34 mmol/L (21.0-32.0); Chloride 103 mmol/L (98-107); Creatinine Clearance Estimated 55 mL/min (0-300); Creatinine,Serum 1.26 mg/dL (0.55-1.02); Estimated Glomerular Filt Rate 41 ml/min (>60); GFR (African American) 50 ML/MIN (>60); Glucose 104 mg/dL (74-106); Potassium 4.2 mmoL/L (3.5-5.1); Sodium 139 mmol/L (136-145)
--- NOTE | 2017-04-19 15:47 | HMH.CARPRO ---
Subjective Date: 04/19/17 Time: 15:47 Principal diagnosis: A. fib with RVR Interval history: 77 yo WF in bed in NAD.still in afib with RVR,denies chest pain or SOB Exam Vital signs and Labs for Last 24 Hours: Temp Pulse Resp BP Pulse Ox 98.3 F 85 20 97/61 98 04/19/17 11:35 04/19/17 12:00 04/19/17 11:35 04/19/17 11:35 04/19/17 11:35 Laboratory Results - last 24 hr 04/18/17 : Chlamy pneumoniae PCR Not detected, Adenovirus (PCR) Not detected, B.parapertussis DNA PCR Not detected, Coronavirus OC43 (PCR) Not detected, Coronavirus HKU1 (PCR) Not detected, Coronavirus 229E (PCR) Not detected, Coronavirus NL63 (PCR) Not detected, Human Metapneumovir PCR Not detected, Influenza A (H1) PCR Not detected, Influ A (H1N1/09) PCR Not detected, Influenza A (H3) PCR Not detected, Influenza Type A (PCR) Not detected, Influenza Type B (PCR) Not detected, M. pneumoniae (PCR) Not detected, Parainfluenza 1 (PCR) Not detected, Parainfluenza 2 (PCR) Not detected, Parainfluenza 3 (PCR) Detected A, Parainfluenza 4 (PCR) Not detected, RSV (PCR) Not detected, Entero/Rhino (PCR) Not detected 04/19/17 06:10: PT 22.8 H, INR 2.10 H 04/19/17 06:10: Sodium 139, Potassium 4.2, Chloride 103, Carbon Dioxide 34 H, Anion Gap 6.2, BUN 32 H, Creatinine 1.26 H, Estimated Creat Clear 55, Estimated GFR 41 L, Est GFR ( Amer) 50 L, Glucose 104 I & O for Last 24 hours: Intake & Output 04/17/17 04/18/17 04/19/17 04/20/17 11:59 11:59 11:59 11:59 Intake Total 1021 / 1021 1600 / 1600 960 / 960 Output Total 1500 / 1500 Balance 1021 / 1021 100 / 100 960 / 960 Weight 215 lb 210 lb 9 oz 212 lb 2 oz Progress Note: A&P (1) RBBB (right bundle branch block with left anterior fascicular block) Status: Acute Current Visit: Yes (2) Atrial fibrillation with rapid ventricular response Status: Acute Assessment and plan: will add amiodarone Current Visit: Yes
--- NOTE | 2017-04-19 15:54 | PC.NURSE ---
Pt resting in bed t/o shift, c/o of pain, relieved with prn pain medicine. contacted BK this shift due to pt strip. some raf and osmany noted, BK stated that they will cardiovert tomorrow. vss, call light in reach, will continue to monitor
--- NOTE | 2017-04-19 16:19 | P.PN_ITS ---
[facility] [place] Blank Note Narrative:: Cardiac progress note Patient denies any complaint of chest pain, shortness of breath is unchanged, she complains of palpitation, environmental monitoring specialist shows presence of atrial fibrillation with intermittent rapid ventricular response and right bundle branch block. Medications Medications reviewed Physical exam Pulse 113 bpm irregular, blood pressure 100/60. No JVP no bruits no thyromegaly Lungs have decreased breath sounds bilaterally with fine rales at the bases Cardiac S1-S2, no S3 Abdomen soft bowel sounds present Extremities without cyanosis, trace pitting edema. Impression: 1. Atrial fibrillation with rapid ventricular response questionable etiology. 2. Right bundle branch block Plan 1. Load amiodarone 2. JUAN guided cardioversion tomorrow morning. The risk of the procedure has been well explained to the patient, she understands the risk and wishes to proceed. Continue beta-bobby and calcium channel bobby as it is.
[2017-04-20] VITALS (12 sets, daily range): BP systolic 94–146; BP diastolic 40–83; PULSE 43–103; RESP 16–20; TEMP 36.4–37.7; O2SAT 91–96
--- NOTE | 2017-04-20 07:23 | HMH.ACPN2 ---
Internal Medicine - PN: Subj *Date: 04/20/17 *Time: 07:23 Interval history: Patient continues to complain of cough. Nursing staff reports a 12 beat run of V. tach yesterday afternoon. Patient is scheduled for cardioversion this morning and has been loaded with amiodarone. She denies chest pain Exam Vital signs and Labs for Last 24 Hours: Temp Pulse Resp BP Pulse Ox 98.1 F 80 20 127/71 96 04/20/17 00:00 04/20/17 04:00 04/20/17 00:00 04/20/17 00:00 04/20/17 00:00 Laboratory Results - last 24 hr 04/19/17 06:10: Sodium 139, Potassium 4.2, Chloride 103, Carbon Dioxide 34 H, Anion Gap 6.2, BUN 32 H, Creatinine 1.26 H, Estimated Creat Clear 55, Estimated GFR 41 L, Est GFR ( Amer) 50 L, Glucose 104 I & O for Last 24 hours: Intake & Output 04/17/17 04/18/17 04/19/17 04/20/17 11:59 11:59 11:59 11:59 Intake Total 1021 / 1021 1600 / 1600 960 / 960 120 / 120 Output Total 1500 / 1500 Balance 1021 / 1021 100 / 100 960 / 960 120 / 120 Weight 215 lb 210 lb 9 oz 212 lb 2 oz Narrative: Patient appears well. Heart rate remains mildly tachycardic and irregular. Assessment and Plan (1) Atrial fibrillation with rapid ventricular response Current visit: Yes Status: Acute Category: Medical Code(s): I48.91 - Unspecified atrial fibrillation (2) Non-Hodgkin lymphoma Current visit: Yes Status: Chronic Qualifiers: Non-Hodgkin lymphoma type: other specified type Lymphoma site: unspecified region Qualified Code(s): C85.80 - Other specified types of non-Hodgkin lymphoma, unspecified site Category: Medical Code(s): C85.90 - Non-Hodgkin lymphoma, unspecified, unspecified site (3) Parainfluenza virus bronchitis Current visit: Yes Status: Acute Category: Medical Code(s): J20.4 - Acute bronchitis due to parainfluenza virus - Assessment and plan all Dx Assessment and Plan for all problems:: Check BMP and magnesium this morning due to her run of V. tach. Cardioversion is scheduled for later this morning.
[2017-04-20 07:33] LABS: Magnesium 1.8 mg/dL (1.4-2.2)
[2017-04-20 07:45] LABS: INR 1.61 (0.9-1.1); Prothrombin Time 17.5 seconds (9.4-11.8)
--- NOTE | 2017-04-20 08:55 | PC.NURSE ---
0830 PATIENT WAS TRANSPORTED TO THE [facility]DROELECTR[facility]CH[facility] FOR JUAN BY RACHANA GONCALVES RN VIA WHEELCHAIR
--- NOTE | 2017-04-20 09:30 | CA_ITS ---
Procedure: Transesophageal echocardiogram Indication for procedure: AF, rule out left atrial appendage thrombus prior to cardioversion Procedure: Patient was brought into cardiac catheter lab holding area and constrictive condition, after the informed consent, conscious sedation was provided by anesthesiologist, local anesthesia was applied and transesophageal echocardiogram was performed without any difficulty patient tolerated the procedure well. Findings: 1. Left atrium is moderately enlarged, left atrial appendage is free of thrombus, there is poor appendage flow by spectral Doppler. 2. Right atrium is moderately enlarged, there is blunting of the intra-atrial septum towards left atrium raising the concern is for elevated right atrial pressure. There is no thrombus seen in the right atrium. 3. The aortic valve is minimally thickened and fibrosed. 4. The mitral and tricuspid valve leaflets are minimally thickened., There is no mitral stenosis, there is mild mitral and tricuspid regurgitation seen. 5. The pulmonic valve is poorly visualized. 6. The right ventricle is mildly enlarged with normal contractility. 7. Left ventricle is normal size, overall preserved left ventricular systolic function, visually estimated ejection fraction 55% with no obvious regional wall motion abnormality in the obtained views. 8. Agitated saline contrast study fails to identify intracardiac shunt. 9. The descending thoracic aorta and arch is not well visualized, there is no obvious proximal dissection or aneurysm. Conclusion: 1. Biatrial enlargement, no obvious thrombus seen in the left atrial appendage. Poor appendage flow by spectral Doppler. 2. Normal left ventricular size, preserved left ventricular systolic function 3. Agitated saline contrast study fails to identify intracardiac shunt. 4. Right ventricle is mildly enlarged with normal contractility. 5. Mild mitral and tricuspid regurgitation. 6. No significant pericardial effusion noted.
--- NOTE | 2017-04-20 09:50 | P.PN_ITS ---
[facility] Anesthesia Checklist - Patient Identification Patient Identification: Arm Band - Structural Data Admitted From: Home Planned Operative Procedure/s: jerzy with cardioversion Consent for Planned Operative Procedure(s) Verified: Yes Verified Documents: Surgical Consent, History and Physical - NPO Status Verified Time NPO: 00:00 - Additional verifications Anesthesia Reactions: No - Airway Assessment C-Spine Mobility Assessed: Yes (mp2) TMJ Mobility Assessed: Yes Dentition: Good Dentition - Neurological Assessment Level of Consciousness: Awake, Alert - Anesthesia Plan Anesthesia Risk discussed: Yes ASA Class: III Anesthesia Type: MAC [facility] Anesthesia HX I have reviewed the patient's past medical history: Yes Medical History: Reports:: Anxiety, Arrhythmia, Atrial Fibrillation, Cancer, Congestive Heart Failure, Coronary Artery Disease, Cerebrovascular Accident, Deep Vein Thrombosis, Gastroesophageal Reflux Disease(GERD), Hypertension, Myocardial Infarction, Peripheral Artery Disease Denies:: Diabetes Mellitus Type 1, Diabetes Mellitus Type 2 Other Medical History: Reports: Anemia, Arthritis, Chemotherapy, Hoarseness, Hypothyroidism, Sinus Problems, Thyroid Disease Laterality Cases: Left: Breast Biopsy, Bilateral: Tonsillectomy Other Surgeries: Yes: Cancer Surgery, Colonoscopy, , Skin Cancer Excision, Tubal Ligation Amputation: No Fractures: Yes *Family Hx:: Coronary Artery Disease, Cancer
--- NOTE | 2017-04-20 10:57 | HMH.NBBLANK ---
[facility] Blank Note Date: 04/20/17 Time: 10:57 Narrative:: Cardiology progress note: Mrs. Perez underwent a successful transesophageal echocardiogram guided electrical DC cardioversion which restored to sinus rhythm. She describes no symptoms suggestive of angina or congestive heart failure. Her INR was not therapeutic, she was given Lovenox prior to electrical DC cardioversion. There was no thrombus in the left atrial appendage. Vital Signs Temp Pulse Pulse Pulse Resp BP Pulse Ox 04/20/17 09:42 60 60 20 126/72 95 04/20/17 08:15 96 04/20/17 08:00 97.6 F 101 H 20 97/60 92 L 04/20/17 04:00 99.8 F H 80 103 H 20 146/83 96 04/20/17 00:00 98.1 F 74 90 20 127/71 96 04/19/17 23:18 95 Home Medications ALPRAZolam [Alprazolam 0.25mg Tab] 0.25 mg PO DAILY 04/02/17 [History Confirmed 04/16/17] Hydrocodone/Acetaminophen [Hydrocodon-Acetaminophn 10-325] 1 each PO QIDP PRN 04/02/17 [History Confirmed 04/16/17] Omeprazole [Omeprazole 20mg Capsule] 20 mg PO DAILY 04/02/17 [History Confirmed 04/16/17] budesonide-formoterol HFA 160 mcg-4.5 mcg/actuation aerosol inhaler 2 puff INHALATION Q12H 04/12/17 [History Confirmed 04/16/17] Digoxin 125 mcg PO DAILY 04/16/17 [History Confirmed 04/16/17] Furosemide [Furosemide 20mg Tab] 20 mg PO DAILY 04/16/17 [History Confirmed 04/16/17] Levothyroxine Sodium [Levothyroxine 125mcg (0.125mg) Tab] 125 mcg PO DAILY 04/16/17 [History Confirmed 04/16/17] Lisinopril [Lisinopril 2.5mg Tab] 2.5 mg PO DAILY 04/16/17 [History Confirmed 04/16/17] Metoprolol Tartrate [Lopressor 50mg tablet] 50 mg PO BID 04/16/17 [History Confirmed 04/16/17] Warfarin Sodium [Coumadin 5mg tablet] 5 mg PO DAILY 04/16/17 [History Confirmed 04/16/17] dilTIAZem HCl [Cartia Xt] 240 mg PO DAILY 04/16/17 [History Confirmed 04/16/17] Hydrocodone Bitart/Acetaminophen (Lortab 10/325mg Tablet) 1 tab PO QIDP PRN PRN Reason: Moderate Pain Stop: 05/16/17 08:59 Last Admin: 04/20/17 10:23 Dose: 1 tab Alprazolam (Xanax 0.25mg Tablet) 0.25 mg PO DAILY CONSTANCE Stop: 05/16/17 08:59 Last Admin: 04/20/17 10:22 Dose: 0.25 mg Amiodarone HCl (Cordarone 200mg Tablet) 400 mg PO BID CONSTANCE Stop: 05/19/17 10:14 Last Admin: 04/20/17 10:22 Dose: 400 mg Benzonatate (Tessalon Perles 100mg Capsule) 100 mg PO TID CONSTANCE Stop: 05/17/17 08:59 Last Admin: 04/20/17 08:47 Dose: Not Given Levothyroxine Sodium (Synthroid 125mcg (0.125mg) Tablet) 125 mcg PO DAILYDM [facility] Stop: 05/16/17 08:44 Last Admin: 04/20/17 06:33 Dose: 125 mcg Metoprolol Tartrate (Lopressor 50mg Tablet) 50 mg PO BID CONSTANCE Stop: 05/17/17 08:59 Last Admin: 04/20/17 10:23 Dose: 50 mg Pantoprazole Sodium (Protonix 40mg Tablet) 40 mg PO DAILY CONSTANCE Stop: 05/16/17 08:59 Last Admin: 04/20/17 10:23 Dose: 40 mg Verapamil HCl (Calan Sr 120mg Tablet) 120 mg PO BID CONSTANCE Stop: 05/18/17 20:59 Last Admin: 04/20/17 10:23 Dose: 120 mg Physical exam HEENT no JVP no bruit no thyromegaly Lungs are clear Cardiac exam S1-S2 Abdomen soft bowel sounds present Extremities are without clubbing cyanosis or edema Laboratory Results - last 24 hr 04/20/17 06:18: PT 17.5 H, INR 1.61 H 04/20/17 06:18: Magnesium 1.8 Laboratory Results - last 48 hr 04/18/17 04/19/17 04/19/17 Unknown 06:10 06:10 PT 22.8 H INR 2.10 H Sodium 139 Potassium 4.2 Chloride 103 Carbon Dioxide 34 H Anion Gap 6.2 BUN 32 H Creatinine 1.26 H Estimated Creat Clear 55 Estimated GFR 41 L Est GFR ( Amer) 50 L Glucose 104 Magnesium Chlamy pneumoniae PCR Not detected Adenovirus (PCR) Not detected B.parapertussis DNA PCR Not detected Coronavirus OC43 (PCR) Not detected Coronavirus HKU1 (PCR) Not detected Coronavirus 229E (PCR) Not detected Coronavirus NL63 (PCR) Not detected Human Metapneumovir PCR Not detected Influenza A (H1) PCR Not detected Influ A (H1N1/09) PCR Not detected Influenza A (H3) PCR
--- NOTE | 2017-04-20 11:05 | P.PN_ITS ---
[facility] Blank Note Date: 04/20/17 Time: 10:57 Narrative:: Cardiology progress note: Mrs. Perez underwent a successful transesophageal echocardiogram guided electrical DC cardioversion which restored to sinus rhythm. She describes no symptoms suggestive of angina or congestive heart failure. Her INR was not therapeutic, she was given Lovenox prior to electrical DC cardioversion. There was no thrombus in the left atrial appendage. Vital Signs Temp Pulse Pulse Pulse Resp BP Pulse Ox 04/20/17 09:42 60 60 20 126/72 95 04/20/17 08:15 96 04/20/17 08:00 97.6 F 101 H 20 97/60 92 L 04/20/17 04:00 99.8 F H 80 103 H 20 146/83 96 04/20/17 00:00 98.1 F 74 90 20 127/71 96 04/19/17 23:18 95 Home Medications ALPRAZolam [Alprazolam 0.25mg Tab] 0.25 mg PO DAILY 04/02/17 [History Confirmed 04/16/17] Hydrocodone/Acetaminophen [Hydrocodon-Acetaminophn 10-325] 1 each PO QIDP PRN [History Confirmed 04/16/17] Omeprazole [Omeprazole 20mg Capsule] 20 mg PO DAILY 04/02/17 [History Confirmed 04/16/17] budesonide-formoterol HFA 160 mcg-4.5 mcg/actuation aerosol inhaler 2 puff INHALATION Q12H 04/12/17 [History Confirmed 04/16/17] Digoxin 125 mcg PO DAILY 04/16/17 [History Confirmed 04/16/17] Furosemide [Furosemide 20mg Tab] 20 mg PO DAILY 04/16/17 [History Confirmed ] Levothyroxine Sodium [Levothyroxine 125mcg (0.125mg) Tab] 125 mcg PO DAILY 04/16 [History Confirmed 04/16/17] Lisinopril [Lisinopril 2.5mg Tab] 2.5 mg PO DAILY 04/16/17 [History Confirmed ] Metoprolol Tartrate [Lopressor 50mg tablet] 50 mg PO BID 04/16/17 [History Confirmed 04/16/17] Warfarin Sodium [Coumadin 5mg tablet] 5 mg PO DAILY 04/16/17 [History Confirmed 04/16/17] dilTIAZem HCl [Cartia Xt] 240 mg PO DAILY 04/16/17 [History Confirmed 04/16/17] Hydrocodone Bitart/Acetaminophen (Lortab 10/325mg Tablet) 1 tab PO QIDP PRN PRN Reason: Moderate Pain Stop: 05/16/17 08:59 Last Admin: 04/20/17 10:23 Dose: 1 tab Alprazolam (Xanax 0.25mg Tablet) 0.25 mg PO DAILY CONSTANCE Stop: 05/16/17 08:59 Last Admin: 04/20/17 10:22 Dose: 0.25 mg Amiodarone HCl (Cordarone 200mg Tablet) 400 mg PO BID CONSTANCE Stop: 05/19/17 10:14 Last Admin: 04/20/17 10:22 Dose: 400 mg Benzonatate (Tessalon Perles 100mg Capsule) 100 mg PO TID CONSTANCE Stop: 05/17/17 08:59 Last Admin: 04/20/17 08:47 Dose: Not Given Levothyroxine Sodium (Synthroid 125mcg (0.125mg) Tablet) 125 mcg PO DAILYDM [facility] Stop: 05/16/17 08:44 Last Admin: 04/20/17 06:33 Dose: 125 mcg Metoprolol Tartrate (Lopressor 50mg Tablet) 50 mg PO BID CONSTANCE Stop: 05/17/17 08:59 Last Admin: 04/20/17 10:23 Dose: 50 mg Pantoprazole Sodium (Protonix 40mg Tablet) 40 mg PO DAILY CONSTANCE Stop: 05/16/17 08:59 Last Admin: 04/20/17 10:23 Dose: 40 mg Verapamil HCl (Calan Sr 120mg Tablet) 120 mg PO BID CONSTANCE Stop: 05/18/17 20:59 Last Admin: 04/20/17 10:23 Dose: 120 mg Physical exam HEENT no JVP no bruit no thyromegaly Lungs are clear Cardiac exam S1-S2 Abdomen soft bowel sounds present Extremities are without clubbing cyanosis or edema Laboratory Results - last 24 hr 04/20/17 06:18: PT 17.5 H, INR 1.61 H 04/20/17 06:18: Magnesium 1.8 Laboratory Results - last 48 hr 04/18/17 04/19/17 04/19/17 Unknown 06:10 06:10 PT 22.8 H INR 2.10 H Sodium 139 Potassium 4.2 Chloride 103 Carbon Dioxide 34 H Anion Gap 6.2 BUN 32 H
--- NOTE | 2017-04-20 11:12 | CARE MANAGER ---
MS LOUIS HAD SUCCESSFUL CARDIOVERSION TODAY. HER MEDS WILL BE ADJUSTED AND SHE SHOULD DISCHARGE TO HOME OVER THE WEEKEND,
--- NOTE | 2017-04-20 11:57 | PC.NURSE ---
1015 PATIENT TRANSPORTED BACK TO ROOM FROM INVESTMENT PROFESSIONAL FOLLOWING JUAN WITH CARDIOVERSION
--- NOTE | 2017-04-20 17:53 | PC.NURSE ---
PATIENT IS RESTING IN BED AT THIS TIME. SHE HAS BEEN AMBULATING INDEPENDENTLY TO THE BATHROOM. LUNGS ARE DIMINISHED IN BILATERAL BASES. PATIENT DENIES PAIN AT THIS TIME. A&OX3. PATIENT HAS BEEN PLEASANT AND COOPERATIVE THIS SHIFT. PATIENT HAD A JUAN WITH CARDIOVERSION THIS AFTERNOON AND CURRENTLY REMAINS IN SINUS HINA SOMETIMES LOW 43. SHE WILL OCCASIONALLY PACS. VSS. CALL LIGHT WITHIN REACH WILL CONTINUE TO MONITOR.
--- NOTE | 2017-04-20 19:15 | PC.NURSE ---
PT FULL CODE; REPORT RECEIVED FROM HAY
--- NOTE | 2017-04-20 19:48 | PC.NURSE ---
PT FULL CODE, REPORT RECEIVED FROM HYA
[2017-04-21] VITALS (8 sets, daily range): BP systolic 96–155; BP diastolic 49–76; PULSE 48–76; RESP 18–22; TEMP 36.6–36.9; O2SAT 91–94
--- NOTE | 2017-04-21 07:17 | PC.NURSE ---
REPORT GIVEN TO Court SOLIZ W/C
--- NOTE | 2017-04-21 07:35 | HMH.DCSUM ---
General - General Admission date: 04/16/17 Discharge date: 04/21/17 HPI HPI: 77-year-old female with recent hospitalization for atrial fibrillation with rapid ventricular response presented to the emergency department yesterday after daylong episodes of visual disturbance that she describes as as if I was looking at a kaleidoscope . Patient had associated palpitations and sensation of racing heart. Recently her medications have been adjusted and she had been taken off of Cardizem and placed on metoprolol for her atrial fibrillation. However, patient stopped taking metoprolol when she believed her blood pressure was too low. On presentation to the ER she was in A. fib again with rapid ventricular response, troponin was negative, BNP was abnormal, INR was supratherapeutic. Patient was placed on Cardizem drip and admitted. This morning she states she continues to have palpitations. She denies visual disturbance at the time of interview. Her biggest complaint is profuse sweating that occurs at home although it is not occurring here in the hospital. She is also frustrated by the fact that she was given a blood pressure medicine when she monitors her blood pressure at home and her blood pressures are normal. She was given a small dose of lisinopril at last discharge but is not taking this any longer. Objective Vital signs: Temp Pulse Resp BP Pulse Ox 98.2 F 64 19 155/76 92 L 04/21/17 04:00 04/21/17 04:00 04/21/17 04:00 04/21/17 04:00 04/21/17 04:00 Hospital Course Hospital Course: Patient was initially admitted and placed on Cardizem drip. Cardizem drip brought her heart rate down intermittently but heart rate would still rise to the 130s periodically. Patient was transitioned back to oral metoprolol 50 mg twice daily as this had been effective during her previous hospitalization and verapamil extended release 120 mg was started. Patient's heart rate continued to fluctuate and she remained in atrial fibrillation. Patient was then loaded with amiodarone by the cardiology service and on the underwent successful JUAN cardioversion. Patient remained on metoprolol although the dose was decreased to 25 mg twice daily due to sinus bradycardia, verapamil ER, amiodarone 400 mg twice daily. At cardiology's suggestion change in anticoagulant was made from warfarin to Eliquis. Patient was provided samples by cardiology. On the the patient's heart rate remained in the 50s and 60s, blood pressure was within normal limits. Patient was discharged home. Patient will follow up with Dr. Lorenzo next week. Patient had significant cough during hospitalization and viral PCR panel revealed parainfluenza virus infection. At times patient would have paroxysms of cough that would cause lightheadedness. She would have intermittent wheezing and this was treated with aerosols. Patient continued to use her Symbicort while she was hospitalized as well. Benzonatate was also used to help control cough. Results Labs on day of discharge: Labs from last 24 hours 04/20/17 06:18 PT 17.5 H INR 1.61 H DS: Diagnosis - Discharge Diagnosis (1) Atrial fibrillation with rapid ventricular response Status: Acute (2) Non-Hodgkin lymphoma Status: Chronic (3) Parainfluenza virus bronchitis Status: Acute Meds Home Medications Medication Instructions Recorded Confirmed Type ALPRAZolam [Alprazolam 0.25mg 0.25 mg PO DAILY 04/02/17 04/16/17 History Tab] Hydrocodone/Acetaminophen 1 each PO QIDP PRN 04/02/17 04/16/17 History [Hydrocodon-Acetaminophn 10-325] Omeprazole [Omeprazole 20mg 20 mg PO DAILY 04/02/17 04/16/17 History Capsule] budesonide-formoterol HFA 160 2 puff INHALATION Q12H 04/12/17 04/16/17 History mcg-4.5 mcg/actuation aerosol inhaler Digoxin 125 mcg PO DAILY 04/16/17 04/16/17 History Furosemide [Furosemide 20mg Tab] 20 mg PO DAILY 04/16/17 04/16/17 Hist
--- NOTE | 2017-04-21 07:39 | P.DS_ITS ---
General - General Admission date: 04/16/17 Discharge date: 04/21/17 HPI HPI: 77-year-old female with recent hospitalization for atrial fibrillation with rapid ventricular response presented to the emergency department yesterday after daylong episodes of visual disturbance that she describes as as if I was looking at a kaleidoscope . Patient had associated palpitations and sensation of racing heart. Recently her medications have been adjusted and she had been taken off of Cardizem and placed on metoprolol for her atrial fibrillation. However, patient stopped taking metoprolol when she believed her blood pressure was too low. On presentation to the ER she was in A. fib again with rapid ventricular response, troponin was negative, BNP was abnormal, INR was supratherapeutic. Patient was placed on Cardizem drip and admitted. This morning she states she continues to have palpitations. She denies visual disturbance at the time of interview. Her biggest complaint is profuse sweating that occurs at home although it is not occurring here in the hospital. She is also frustrated by the fact that she was given a blood pressure medicine when she monitors her blood pressure at home and her blood pressures are normal. She was given a small dose of lisinopril at last discharge but is not taking this any longer. Objective Vital signs: Temp Pulse Resp BP Pulse Ox 98.2 F 64 19 155/76 92 L 04/21/17 04:00 04/21/17 04:00 04/21/17 04:00 04/21/17 04:00 04/21/17 04:00 Hospital Course Hospital Course: Patient was initially admitted and placed on Cardizem drip. Cardizem drip brought her heart rate down intermittently but heart rate would still rise to the 130s periodically. Patient was transitioned back to oral metoprolol 50 mg twice daily as this had been effective during her previous hospitalization and verapamil extended release 120 mg was started. Patient's heart rate continued to fluctuate and she remained in atrial fibrillation. Patient was then loaded with amiodarone by the cardiology service and on the underwent successful JUAN cardioversion. Patient remained on metoprolol although the dose was decreased to 25 mg twice daily due to sinus bradycardia, verapamil ER, amiodarone 400 mg twice daily. At cardiology's suggestion change in anticoagulant was made from warfarin to Eliquis. Patient was provided samples by cardiology. On the the patient's heart rate remained in the 50s and 60s , blood pressure was within normal limits. Patient was discharged home. Patient will follow up with Dr. Lorenzo next week. Patient had significant cough during hospitalization and viral PCR panel revealed parainfluenza virus infection. At times patient would have paroxysms of cough that would cause lightheadedness. She would have intermittent wheezing and this was treated with aerosols. Patient continued to use her Symbicort while she was hospitalized as well. Benzonatate was also used to help control cough. Results Labs on day of discharge: Labs from last 24 hours 04/20/17 06:18 PT 17.5 H INR 1.61 H DS: Diagnosis - Discharge Diagnosis (1) Atrial fibrillation with rapid ventricular response Status: Acute (2) Non-Hodgkin lymphoma Status: Chronic (3) Parainfluenza virus bronchitis Status: Acute Meds Home Medications Medication Instructions Recorded Confirmed Type ALPRAZolam [Alprazolam 0.25mg 0.25 mg PO DAILY 04/02/17 04/16/17 History Tab]
[2017-04-21 07:49] LABS: INR 1.41 (0.9-1.1); Prothrombin Time 15.3 seconds (9.4-11.8)
== END 2017-04-21 14:00 | disposition home or self-care (01) | DRG 281 ==
LOC: ER 02:25 → 2ND 02:58
PROVIDERS: Internal Medicine Cardiovascular Disease; Admitting Provider Family Medicine; Emergency Provider Emergency Medicine; Family Provider Family Medicine; PCP Family Medicine; Visit Provider Family Medicine
DX: I48.91 Unspecified atrial fibrillation (principal); I21.4 Non-ST elevation (NSTEMI) myocardial infarction; C85.90 Non-Hodgkin lymphoma, unspecified, unspecified site; J20.4 Acute bronchitis due to parainfluenza virus; I45.2 Bifascicular block; I10 Essential (primary) hypertension; J44.9 Chronic obstructive pulmonary disease, unspecified
CPT/HCPCS: 36415; 70450; 71045; 71046; 80048; 80053; 80162; 82550; 82553; 83735; 83880; 84443; 84484; 85025; 85610; 87486; 87581; 87633; 87798; 93005; 93312; 94640; 94760; 94761; 96365; 96367; 96375; 99282

== ENCOUNTER → 2017-06-13 11:25 | Outpatient (CLI) | payer MEDICARE, MEDICAID, SELFPAY ==
[2017-06-13 11:50] LABS: Basophils # 0.1 K/mm3 (0-0.2); Basophils % 0.5 % (0.1-2.0); Eosinophils # 0.5 K/mm3 (0.0-0.4); Eosinophils % 5.6 % (0.1-12.0); Hematocrit 42.2 % (37.0-47.0); Hemoglobin 12.7 g/dL (12.2-16.2); Lymphocytes # 1.9 K/mm3 (0.7-4.5); Lymphocytes % 19.5 K/mm3 (10-50); Mean Corpuscular Volume 103.3 fl (81-99); Mean Platelet Volume 10.4 fl (7.4-10.4); Monocytes # 0.7 K/mm3 (0.1-1.0); Monocytes % 7.5 % (1.7-9.3); Neutrophils # 6.5 K/mm3 (1.8-7.8); Neutrophils % 66.9 % (37.0-80.0); Platelet Count 196 K/mm3 (142-424); Red Blood Count 4.09 M/mm3 (4.20-5.40); Red Cell Distribution Width 14.2 % (11.5-17.5); White Blood Count 9.7 K/mm3 (4.8-10.8)
[2017-06-13 15:09] LABS: Alanine Aminotransferase 17 U/L (12-78); Albumin Level 3.4 gm/dL (3.4-5.0); Albumin/Globulin Ratio 0.9 (1.1-1.8); Alkaline Phosphatase 75 U/L (46-116); Anion Gap 9.6 mEq/L (5-15); Aspartate Amino Transferase 29 U/L (15-37); Bilirubin,Direct 0.1 mg/dL (0.0-0.2); Bilirubin,Total 0.4 mg/dL (0.2-1.0); Blood Urea Nitrogen 18 mg/dL (7-18); Calcium 10.7 mg/dL (8.5-10.1); Carbon Dioxide 34 mmol/L (21.0-32.0); Chloride 99 mmol/L (98-107); Chol/HDL Ratio 4.9 (1-3.5); Cholesterol 138 mg/dL (140-200); Creatinine,Serum 1.15 mg/dL (0.55-1.02); Estimated Glomerular Filt Rate 46 ml/min (>60); Free Thyroxine Index 2.5 ug/dL (5.93-13.13); GFR (African American) 55 ML/MIN (>60); Globulin 3.7 gm/dl (1.3-3.2); Glucose 146 mg/dL (74-106); HDL Cholesterol 28 mg/dL (29-89); LDL Cholesterol 79 mg/dL (0-130); Potassium 4.6 mmoL/L (3.5-5.1); Sodium 138 mmol/L (136-145); T4 (Thyroxine) 7.3 ug/dl (4.7-13.3); Thyroid Stimulating Hormone 15.67 uIU/ml (0.358-3.740); Total Protein,Serum 7.1 gm/dL (6.4-8.2); Triglycerides 157 mg/dL (30-200); Triiodothryronine (T3) Uptake 34 % (31-39); VLDL Cholesterol 31 mg/dL (0-40)
== END ==
PROVIDERS: Internal Medicine Cardiovascular Disease; Visit Provider Internal Medicine
DX: Z79.899 Other long term (current) drug therapy (principal); E78.5 Hyperlipidemia, unspecified; I50.23 Acute on chronic systolic (congestive) heart failure; I10 Essential (primary) hypertension; I48.91 Unspecified atrial fibrillation
CPT/HCPCS: 36415; 80053; 80061; 80076; 83880; 84436; 84443; 84479; 85025

== ENCOUNTER → 2017-06-21 11:33 | Outpatient (CLI) | payer MEDICARE, MEDICAID, SELFPAY ==
--- NOTE | 2017-06-21 12:49 | CT_ITS ---
CT chest w con HISTORY: ITS.REASON: SMALL CELL LYMPHOMA ORDERING PHYSICIAN: Bhupinder Mcintyre MD PATIENT AGE: 77 years TECHNIQUE: Axial images obtained following the administration of 75 mL of Isovue 370 . Sagittal, and coronal reformatted images are also generated and reviewed. All CT scans at the facility use one or more dose reduction, viz: automated exposure control; ma/kV adjustment per patient size (including targeted exams where dose is matched to indication; i.e. head); or iterative reconstruction technique. COMPARISON: 03/14/2017 FINDINGS: There is extensive bilateral axillary adenopathy which is worse on today's study. Bulky bilateral axillary adenopathy is noted. The largest left axillary node measures 2.5 x 2.5 cm previously 2 x 1.3 cm. Largest right axillary node measures 1.8 x 1.9 cm previously approximately 1 cm. Enlarged nodes are present also in the lower neck. There is also mild mediastinal adenopathy not significantly changed. There is mild cardiomegaly. No central pulmonary embolus or aortic aneurysm or dissection is evident. An 8 mm nodule present along the left major fissure possibly due to small lymph node previously measuring 6 mm. There is a macro lobular nodule in the left lower lobe laterally 2.2 cm with somewhat irregular margins. This has developed since the previous exam. Patchy density is present in the right lower lobe medially consistent with an area of pneumonia superimposed upon chronic changes. Patchy density also in the left lung base medially probably related to atelectasis chronic change. Isodensity is noted in the right aspect of T9 vertebral body and within the anterior right aspect of the T7 vertebral body. These findings are similar and of questionable clinical significance. Dictated be related to lipomas. IMPRESSION: 1. Worsening bilateral axillary adenopathy consistent with worsening lymphoma. 2. There is a new 2 cm macrolobulated nodule in the left lower lobe with spiculated margins suspicious or neoplasm. Postinflammatory or infectious changes are also a consideration. 3. No change isodensity's of the T9 and T7 vertebral body 4. Chronic change with suspected superimposed pneumonia in right lung base medially
--- NOTE | 2017-06-21 12:49 | CT_ITS ---
CT abdomen pelvis w con CLINICAL INDICATION: ITS.REASON: SMALL CELL LYMPHOMA ORDERING PHYSICIAN: Bhupinder Mcintyre MD PATIENT AGE: 77 years COMPARISON: 03/14/2017 TECHNIQUE: Axial images obtained with sagittal and coronal reformats. All CT scans at the facility use one or more dose reduction, viz: automated exposure control; ma/kV adjustment per patient size (including targeted exams where dose is matched to indication; i.e. head); or iterative reconstruction technique. PROCEDURE: Oral Contrast: Redicat IV Contrast: 75 mL's of Isovue-370 performed in conjunction with the chest CT. FINDINGS: The liver, adrenal glands, pancreas, and kidneys have an unremarkable appearance. Gallbladder is distended measuring up to 6 x 10 cm. No radio opaque stones identified. Small hiatal hernia. There are small retroperitoneal lymph nodes present measuring up to 1.8 x 1.3 cm posterior to the IVC on the right previously measuring 1.1 x 0.9 cm. Mildly enlarged para-aortic lymph nodes are present and are slightly larger measuring up to 1.2 cm in the left periaortic region and 1.6 cm in the right periaortic region previously at 5 mm on the left and 1.3 cm on the right. There is fairly extensive bilateral inguinal adenopathy with the largest node on the left measuring up to 2.7 cm previously 1.8 cm. Right inguinal node measures up to 3 cm previously 1.9 cm. No focal inflammatory change. No acute bony anomalies. There is a well-circumscribed lucent lesion of the left proximal femur measuring 5.3 x 3 cm similar to an older study of 12/07/2016. IMPRESSION: Retroperitoneal and bilateral inguinal adenopathy which is slightly worse consistent with worsening lymphoma.
== END ==
PROVIDERS: Family Provider Family Medicine; PCP Family Medicine; Visit Provider Internal Medicine
DX: C85.80 Other specified types of non-Hodgkin lymphoma, unspecified site (principal)
CPT/HCPCS: 71260; 74177; Q9967

== ENCOUNTER → 2017-06-26 13:53 | Outpatient (CLI) | payer MEDICARE, MEDICAID, SELFPAY ==
--- NOTE | 2017-06-26 13:57 | CT_ITS ---
CT soft tissue neck w con INDICATION: Follow-up lymphoma ITS.REASON: SMALL CELL LYMPHOMA ORDERING PHYSICIAN: Bhupinder Mcintyre MD PATIENT AGE: 77 years COMPARISON: 03/14/2017 TECHNIQUE: Axial images are obtained with 75 mL's of Isovue-370 contrast. Sagittal and coronal reformatted images are reviewed as well. All CT scans at the facility use one or more dose reduction, viz: automated exposure control; ma/kV adjustment per patient size (including targeted exams where dose is matched to indication; i.e. head); or iterative reconstruction technique. FINDINGS: There is a new 12 x 9 mm nodule in the preauricular region on the right and a new slightly irregular 11 mm nodule in the central aspect of the right parotid gland. The previously described nodule along the inferior aspect of the right parotid gland slightly larger at 9 mm previously at 7.5 mm. A chain of lymph nodes now present posterior to the right internal jugular vein. Enlarged nodes have developed posterior to the superior aspect of the right submandibular gland measuring up to 2 x 1.9 cm.. The previously noted soft tissue density posterior to the right clavicle now contains contrast and was likely due to an ectatic subclavian vein as opposed to an enlarged lymph node. There is mild left-sided adenopathy in the neck as well as a submandibular region with a 16 mm node anterior to the left sublingual gland previously measuring 10 mm. Multiple small lymph nodes are present posterior to the left jugular vein and deep to the left sternocleidomastoid. The nasopharynx has an unremarkable appearance as does the larynx. There are small nodes present in the pretracheal region having developed in the interval as well. IMPRESSION: Worsening bilateral cervical adenopathy as described above consistent with worsening lymphoma. Please see above for detail
== END ==
PROVIDERS: Family Provider Family Medicine; PCP Family Medicine; Visit Provider Family Medicine
DX: C85.80 Other specified types of non-Hodgkin lymphoma, unspecified site (principal)
CPT/HCPCS: 70491; Q9967

== ENCOUNTER 2017-08-01 11:52 | Observation (INO) ==
[2017-08-01 12:30] LABS: Basophils # 0.1 K/mm3 (0-0.2); Basophils % 0.5 % (0.1-2.0); Eosinophils # 0.4 K/mm3 (0.0-0.4); Eosinophils % 4.2 % (0.1-12.0); Hematocrit 44.9 % (37.0-47.0); Hemoglobin 14.4 g/dL (12.2-16.2); Lymphocytes % 19.9 K/mm3 (10-50); Mean Corpuscular HGB Conc 32.1 g/dL (31.8-35.4); Mean Corpuscular Hemoglobin 31.1 pg (27.0-31.2); Mean Corpuscular Volume 96.9 fl (81-99); Mean Platelet Volume 9.1 fl (7.4-10.4); Monocytes # 0.8 K/mm3 (0.1-1.0); Monocytes % 7.7 % (1.7-9.3); Neutrophils # 6.7 K/mm3 (1.8-7.8); Neutrophils % 67.7 % (37.0-80.0); Platelet Count 255 K/mm3 (142-424); Red Blood Count 4.64 M/mm3 (4.20-5.40); Red Cell Distribution Width 13.4 % (11.5-17.5)
[2017-08-01 12:41] LABS: Albumin Level 3.2 gm/dL (3.4-5.0); Albumin/Globulin Ratio 0.7 (1.1-1.8); Anion Gap 12.7 mEq/L (5-15); Bilirubin,Total 0.5 mg/dL (0.2-1.0); Globulin 4.6 gm/dl (1.3-3.2); Total Protein,Serum 7.8 gm/dL (6.4-8.2)
[2017-08-01 12:48] LABS: Calcium 15.5 mg/dL (8.5-10.1)
[2017-08-01 12:49] LABS: Potassium 4.7 mmoL/L (3.5-5.1)
[2017-08-02 06:47] LABS: Albumin Level 2.7 gm/dL (3.4-5.0); Anion Gap 7.5 mEq/L (5-15); Potassium 3.5 mmoL/L (3.5-5.1)
--- NOTE | 2017-08-02 07:21 | History & Physical Report ---
*Admission Date: 08/01/17 *Chief complaint: Elevated calcium level *History of present illness: 77-year-old female admitted from the oncology clinic yesterday when she was found with hypercalcemia. Patient reports for the last 5-6 days she has felt increasingly weak with difficulty getting out of bed except for ambulating to the bathroom. Patient has lymphoma and has lost almost 50 pounds since her diagnosis. According to the patient, who is not a reliable historian, the plan had been to start new chemotherapy but when her calcium was found to be elevated her chemotherapy has been delayed. She does endorse grade B symptoms of subjective fevers, night sweats, weight loss. Upon admission her blood pressure and pulse rate were both low and her metoprolol 50 mg was held. I have decreased this this morning to 25 mg [facility] History I have reviewed the patient's past medical history: Yes Medical History: Reports:: Anxiety, Arrhythmia, Atrial Fibrillation, Cancer, Congestive Heart Failure, Coronary Artery Disease, Cerebrovascular Accident, Deep Vein Thrombosis, Gastroesophageal Reflux Disease(GERD), Hypertension, Myocardial Infarction, Osteoporosis, Peripheral Artery Disease, Peripheral Vascular Disease Denies:: Diabetes Mellitus Type 1, Diabetes Mellitus Type 2, MRSA, Seizures Other Medical History: Reports: Anemia, Arthritis, Chemotherapy, Hoarseness, Hypothyroidism, Osteoporosis, Sinus Problems, Thyroid Disease Laterality Cases: Left: Breast Biopsy, Right: ACL Repair, Bilateral: Tonsillectomy, Total Knee Replacement Other Surgeries: Yes: Cancer Surgery, Cardiac Catheterization, Colonoscopy, C- section, Hernia Repair, Skin Cancer Excision, Tubal Ligation Amputation: No Fractures: Yes ((L) foot, (R) foot) - *Social History Educational Level: Attended College Smoking Status: Former smoker Tobacco Type: cigarettes #Yrs smoked (if former smoker): 40 Smoking End Date: 1995 Alcohol Intake: never Alcohol Intake Frequency:: other Substance Use Type: denies use Occupational Status: retired Housing: house Household Members: none - Psychiatric History Expresses thoughts of harming self/others: None Suicide Plan Description: No Plan Pschychiatric History:: Reports:: Anxiety *Family Hx:: Cancer, Coronary Artery Disease, Diabetes, Heart Attack, Hyperlipidemia, Thyroid Disorder Review of Systems - Review of Systems Review of systems:: pertinent systems reviewed and negative unless documented below See HPI - *Cardiovascular Denies chest pain - *Respiratory Denies shortness of breath Meds Home Medications Medication Instructions Recorded Confirmed Type ALPRAZolam [Alprazolam 0.25mg 0.25 mg PO DAILY 04/02/17 08/01/17 History Tab] Hydrocodone/Acetaminophen 1 each PO QIDP PRN 04/02/17 08/01/17 History [Hydrocodone-Acetamin 10-325 mg] budesonide-formoterol HFA 160 2 puff INHALATION Q12H 04/12/17 08/01/17 History mcg-4.5 mcg/actuation aerosol inhaler Levothyroxine Sodium 125 mcg PO DAILY 04/16/17 08/01/17 History [Levothyroxine 125mcg (0.125mg) Tab] furosemide 20 mg tablet 20 mg PO DAILY PRN 06/21/17 08/01/17 History Apixaban [Eliquis] 5 mg PO BID 08/01/17 08/01/17 History Aspirin [Aspirin 325mg Tab] 325 mg PO DAILY 08/01/17 08/01/17 History Benzonatate [Benzonatate 100mg 100 mg PO TIDP PRN 08/01/17 08/01/17 History cap] Ergocalciferol (Vitamin D2) 400 unit PO DAILY 08/01/17 08/01/17 History [Vitamin D] Krill Oil 500 mg PO DAILY 08/01/17 08/01/17 History Loratadine [Claritin 10mg Tablet] 10 mg PO DAILY 08/01/17 08/01/17 History Metoprolol Tartrate 50 mg PO BID 08/01/17 08/01/17 History Vitamin A 8,000 unit PO DAILY 08/01/17 08/01/17 History Allergies Allergy/AdvReac Type Severity Reaction Status Date / Time buspirone [From BuSpar] Allergy Severe SUICIDAL Verified 08/01/17 10:49 IDEATION prednisone Allergy Severe INTERNAL Verified 08/01/17 10:49 ORGANOMEGALY propoxyphene Allergy Severe RESPIRATORY Verified 08/01/17 10:49 [From Darvocet-N] DEPRESSION tramadol Allergy Severe SEVERE Verified 08/01/17 10:49 WITHDRAWAL adhesive Allergy Intermediate I-RASH Verified 08/01/17 10:49 bupropion [From Wellbutrin] Allergy Intermediate DEPRESSION Verified 08/01/17 10 :49 codeine Allergy Intermediate LEG PAIN, Verified 08/01/17 10:49 STOMACH CRMPS cyclobenzaprine Allergy Intermediate MUSCLE Verified 08/01/17 10:49 [From Flexeril] SPASMS diclofenac [From Voltaren] Allergy Intermediate I-HIVES Verified 08/01/17 10:49 escitalopram [From Lexapro] Allergy Intermediate IRREGULAR Verified 08/01/17 10: 49 HEART RATE, NUMBNESS,TINGLING gabapentin [From Neurontin] Allergy Intermediate I-ITCHING, Verified 08/01/17 10 :49 SLURRED SPEECH, HEAD PAIN influenza virus vaccine, Allergy Intermediate I-RASH Verified 08/01/17 10:49 specific [influenza virus vacc,specific] meloxicam [From Mobic] Allergy Intermediate SORES, Verified 08/01/17 10:49 ACNE, DIARRHEA naproxen [From Naprosyn] Allergy Intermediate STOMACH Verified 08/01/17 10:49 PAIN, CRAMPS Penicillins Allergy Intermediate I-HIVES Verified 08/01/17 10:49 promethazine [From Phenergan] Allergy Intermediate LOSS OF Verified 08/01/17 10: 49 SPEECH, MUSCLE CONTRACTIONS, NAUSEA rosuvastatin [From Crestor] Allergy Intermediate NECK, LEG, Verified 08/01/17 10 :49 AND JOINT PAIN; NUMBNESS simvastatin [From Vytorin] Allergy Intermediate TINGLING Verified 08/01/17 10:49 IN FEET & ANKLES; NUMBNESS tetanus and diphtheria Allergy Intermediate I-RASH, Verified 08/01/17 10:49 toxoids SWELLING, [tetanus & diphtheria PAIN toxoids] venlafaxine [From Effexor] Allergy Intermediate DISORIENTED Verified 08/01/17 10 :49 venom-honey bee Allergy Intermediate SWELLING Verified 08/01/17 10:49 [bee venom (honey bee)] paroxetine [From Paxil] Allergy Mild DRY MOUTH, Verified 08/01/17 10:49 UNCONTROLLED HICCUPS sertraline [From Zoloft] Allergy Mild UNCONTROLLED Verified 08/01/17 10:49 HICCUPS duloxetine [From Cymbalta] Allergy Unknown Verified 08/01/17 10:49 ezetimibe [From Zetia] Allergy Unknown Verified 08/01/17 10:49 honey Allergy Unknown Verified 08/01/17 10:49 celecoxib [From Celebrex] AdvReac Mild HEADACHE Verified 08/01/17 10:49 diazepam [From Valium] AdvReac Mild HYPERACTIVE Verified 08/01/17 10:49 morphine AdvReac Mild NA-NAUSEA/VOMITING; Verified 08/01/17 10:49 DISORIENTATION ULTRAVIOLET LIGHT Allergy Unknown Uncoded 08/01/17 10:49 CAT GUT SUTURES AdvReac Unknown Uncoded 08/01/17 10:49 contrave AdvReac Uncoded 08/01/17 10:49 Exam Vital signs and Labs for Last 24 Hours: Temp Pulse Resp BP Pulse Ox 97.6 F 69 17 130/75 91 L 08/02/17 04:00 08/02/17 04:00 08/02/17 04:00 08/02/17 04:00 08/02/17 04:00 Laboratory Results - last 24 hr 08/01/17 12:15: WBC 10.0, RBC 4.64, Hgb 14.4, Hct 44.9, MCV 96.9, MCH 31.1, MCHC 32.1, RDW 13.4, Plt Count 255, MPV 9.1, Neut % (Auto) 67.7, Lymph % (Auto) 19.9, [place] % (Auto) 7.7, Eos % (Auto) 4.2, Baso % (Auto) 0.5, Neut # (Auto) 6.7 , Lymph # (Auto) 2.0, [place] # (Auto) 0.8, Eos # (Auto) 0.4, Baso # (Auto) 0.1 08/01/17 12:15: Sodium 136, Potassium 4.7, Chloride 97 L, Carbon Dioxide 31, Anion Gap 12.7, BUN 25 H, Creatinine 1.73 H, Estimated Creat Clear 37, Estimated GFR 28 L, Est GFR ( Amer) 34 L, Glucose 129 H, Calcium 15.5 H* , Total Bilirubin 0.5, AST 35, ALT 13, Alkaline Phosphatase 74, Total Protein 7.8, Albumin 3.2 L, Globulin 4.6 H, Albumin/Globulin Ratio 0.7 L 08/02/17 06:10: Sodium 142, Potassium 3.5 D, Chloride 105, Carbon Dioxide 33 H , Anion Gap 7.5, BUN 26 H, Creatinine 1.59 H, Estimated Creat Clear 41, Estimated GFR 31 L, Est GFR ( Amer) 38 L, Glucose 96 D, Albumin 2.7 L D I & O for Last 24 hours: Intake & Output 07/30/17 07/31/17 08/01/17 08/02/17 11:59 11:59 11:59 11:59 Intake Total 2983 / 2983 Output Total 1025 / 1025 Balance 1957 / 1957 Weight 195 lb 198 lb 1 oz Narrative: Patient is awake and alert this morning. HEENT exam is grossly normal. Neck has palpable lymphadenopathy. Lungs are clear to auscultation. Heart has a regular rate and rhythm. Abdomen is soft, nontender, nondistended. Extremities are without edema H&P: Result - Labs Labs: Short CBC 08/01/17 Range/Units 12:15 WBC 10.0 (4.8-10.8) K/mm3 Hgb 14.4 (12.2-16.2) g/dL Hct 44.9 (37.0-47.0) % Plt Count 255 (142-424) K/mm3 BMP 08/01/17 08/02/17 12:15 06:10 Sodium 136 142 Potassium 4.7 3.5 D Chloride 97 L 105 Carbon Dioxide 31 33 H BUN 25 H 26 H Creatinine 1.73 H 1.59 H Glucose 129 H 96 D Calcium 15.5 H* Liver Function 08/01/17 08/02/17 Range/Units 12:15 06:10 Total Bilirubin 0.5 (0.2-1.0) mg/dL AST 35 (15-37) U/L ALT 13 (12-78) U/L Alkaline Phosphatase 74 (46-116) U/L Albumin 3.2 L 2.7 L D (3.4-5.0) gm/dL Assessment and Plan (1) Hypercalcemia Current visit: Yes Status: Acute Category: Medical Code(s): E83.52 - Hypercalcemia - Assessment and plan all Dx Assessment and Plan for all problems:: 1. Workup for hypercalcemia has begun with PTH, vitamin D, D TSH levels ordered. Patient was given Zometa prior to admission and was started on IV fluids with a single dose of furosemide given as well. Once calcium levels begin to decrease patient will return to home. She is slowly declining.
[2017-08-02 07:50] LABS: Calcium 12.3 mg/dL (8.5-10.1)
[2017-08-02 08:10] LABS: Thyroid Stimulating Hormone 18.77 uIU/ml (0.358-3.740)
--- NOTE | 2017-08-02 08:10 | Pharmacy Consult Notes ---
[facility] Pharm[facility] VTE Monitoring - Patient Demographics Admission date: 08/01/17 Report Date: 08/02/17 Time: 08:10 Allergies/Adverse Reactions: Patient Allergies buspirone [From BuSpar] Allergy (Severe, Verified 08/01/17 10:49) SUICIDAL IDEATION prednisone Allergy (Severe, Verified 08/01/17 10:49) INTERNAL ORGANOMEGALY propoxyphene [From Darvocet-N] Allergy (Severe, Verified 08/01/17 10:49) RESPIRATORY DEPRESSION tramadol Allergy (Severe, Verified 08/01/17 10:49) SEVERE WITHDRAWAL adhesive Allergy (Intermediate, Verified 08/01/17 10:49) I-RASH bupropion [From Wellbutrin] Allergy (Intermediate, Verified 08/01/17 10:49) DEPRESSION codeine Allergy (Intermediate, Verified 08/01/17 10:49) LEG PAIN, STOMACH CRMPS cyclobenzaprine [From Flexeril] Allergy (Intermediate, Verified 08/01/17 10:49) MUSCLE SPASMS diclofenac [From Voltaren] Allergy (Intermediate, Verified 08/01/17 10:49) I-HIVES escitalopram [From Lexapro] Allergy (Intermediate, Verified 08/01/17 10:49) IRREGULAR HEART RATE, NUMBNESS,TINGLING gabapentin [From Neurontin] Allergy (Intermediate, Verified 08/01/17 10:49) I-ITCHING, SLURRED SPEECH, HEAD PAIN influenza virus vaccine, specific [influenza virus vacc,specific] Allergy ( Intermediate, Verified 08/01/17 10:49) I-RASH meloxicam [From Mobic] Allergy (Intermediate, Verified 08/01/17 10:49) SORES, ACNE, DIARRHEA naproxen [From Naprosyn] Allergy (Intermediate, Verified 08/01/17 10:49) STOMACH PAIN, CRAMPS Penicillins Allergy (Intermediate, Verified 08/01/17 10:49) I-HIVES promethazine [From Phenergan] Allergy (Intermediate, Verified 08/01/17 10:49) LOSS OF SPEECH, MUSCLE CONTRACTIONS, NAUSEA rosuvastatin [From Crestor] Allergy (Intermediate, Verified 08/01/17 10:49) NECK, LEG, AND JOINT PAIN; NUMBNESS simvastatin [From Vytorin] Allergy (Intermediate, Verified 08/01/17 10:49) TINGLING IN FEET & ANKLES; NUMBNESS tetanus and diphtheria toxoids [tetanus & diphtheria toxoids] Allergy ( Intermediate, Verified 08/01/17 10:49) I-RASH, SWELLING, PAIN venlafaxine [From Effexor] Allergy (Intermediate, Verified 08/01/17 10:49) DISORIENTED venom-honey bee [bee venom (honey bee)] Allergy (Intermediate, Verified 10:49) SWELLING paroxetine [From Paxil] Allergy (Mild, Verified 08/01/17 10:49) DRY MOUTH, UNCONTROLLED HICCUPS sertraline [From Zoloft] Allergy (Mild, Verified 08/01/17 10:49) UNCONTROLLED HICCUPS duloxetine [From Cymbalta] Allergy (Unknown, Verified 08/01/17 10:49) ezetimibe [From Zetia] Allergy (Unknown, Verified 08/01/17 10:49) honey Allergy (Unknown, Verified 08/01/17 10:49) celecoxib [From Celebrex] Adverse Reaction (Mild, Verified 08/01/17 10:49) HEADACHE diazepam [From Valium] Adverse Reaction (Mild, Verified 08/01/17 10:49) HYPERACTIVE morphine Adverse Reaction (Mild, Verified 08/01/17 10:49) NA-NAUSEA/VOMITING; DISORIENTATION ULTRAVIOLET LIGHT Allergy (Unknown, Uncoded 08/01/17 10:49) CAT GUT SUTURES Adverse Reaction (Unknown, Uncoded 08/01/17 10:49) contrave Adverse Reaction (Uncoded 08/01/17 10:49) Height: 1.7 m Weight: 89.84 kg Patient Problems: Current Active Problems Hypercalcemia (Acute) - VTE Risk Labs: VTE Related Lab Results Hgb 14.4 g/dL (12.2-16.2) 08/01/17 12:15 Hct 44.9 % (37.0-47.0) 08/01/17 12:15 Plt Count 255 K/mm3 (142-424) 08/01/17 12:15 BUN 26 mg/dL (7-18) H 08/02/17 06:10 Creatinine 1.59 mg/dL (0.55-1.02) H 08/02/17 06:10 Estimated Creat Clear 41 mL/min (0-300) 08/02/17 06:10 VTE Score: 7 VTE Risk Level: Moderate Risk - Prophylaxis VTE Prophylaxis Ordered?: Yes Types of VTE Prophylaxis: TEDS Knee High, Pharmacological Location of Applied Device: Bilateral Lower Extremeties Pharmacologic Type: Other (ELIQUIS) - VTE Diagnosis Confirmed Treatment or plan recommended: Continue Current Treatment
--- NOTE | 2017-08-02 08:23 | Discharge Summary ---
General - General Admission date:: 08/01/17 Discharge date: 08/02/17 HPI HPI: 77-year-old female admitted from the oncology clinic yesterday when she was found with hypercalcemia. Patient reports for the last 5-6 days she has felt increasingly weak with difficulty getting out of bed except for ambulating to the bathroom. Patient has lymphoma and has lost almost 50 pounds since her diagnosis. According to the patient, who is not a reliable historian, the plan had been to start new chemotherapy but when her calcium was found to be elevated her chemotherapy has been delayed. She does endorse grade B symptoms of subjective fevers, night sweats, weight loss. Upon admission her blood pressure and pulse rate were both low and her metoprolol 50 mg was held. I have decreased this this morning to 25 mg Hospital Course Hospital Course: Patient was admitted and given Zometa, IV fluids, and furosemide. The following morning calcium level had already decreased to 12. She was discharged to home and will follow up in office next week to go over results of TSH, PTH, Vitamin d levels. Objective Vital signs: Temp Pulse Resp BP Pulse Ox 98.2 F 69 18 145/74 90 L 08/02/17 08:00 08/02/17 08:00 08/02/17 08:00 08/02/17 08:00 08/02/17 08:00 Results Labs on day of discharge: Labs from last 24 hours 08/02/17 08/02/17 08/01/17 06:10 06:10 12:15 WBC RBC Hgb Hct MCV MCH MCHC RDW Plt Count MPV Neut % (Auto) Lymph % (Auto) Casey % (Auto) Eos % (Auto) Baso % (Auto) Neut # (Auto) Lymph # (Auto) Casey # (Auto) Eos # (Auto) Baso # (Auto) Sodium 142 136 Potassium 3.5 D 4.7 Chloride 105 97 L Carbon Dioxide 33 H 31 Anion Gap 7.5 12.7 BUN 26 H 25 H Creatinine 1.59 H 1.73 H Estimated Creat Clear 41 37 Estimated GFR 31 L 28 L Est GFR ( Amer) 38 L 34 L Glucose 96 D 129 H Calcium 12.3 H* D 15.5 H* Total Bilirubin 0.5 AST 35 ALT 13 Alkaline Phosphatase 74 Total Protein 7.8 Albumin 2.7 L D 3.2 L Globulin 4.6 H Albumin/Globulin Ratio 0.7 L TSH 18.77 H 08/01/17 12:15 WBC 10.0 RBC 4.64 Hgb 14.4 Hct 44.9 MCV 96.9 MCH 31.1 MCHC 32.1 RDW 13.4 Plt Count 255 MPV 9.1 Neut % (Auto) 67.7 Lymph % (Auto) 19.9 Casey % (Auto) 7.7 Eos % (Auto) 4.2 Baso % (Auto) 0.5 Neut # (Auto) 6.7 Lymph # (Auto) 2.0 Casey # (Auto) 0.8 Eos # (Auto) 0.4 Baso # (Auto) 0.1 Sodium Potassium Chloride Carbon Dioxide Anion Gap BUN Creatinine Estimated Creat Clear Estimated GFR Est GFR ( Amer) Glucose Calcium Total Bilirubin AST ALT Alkaline Phosphatase Total Protein Albumin Globulin Albumin/Globulin Ratio TSH DS: Diagnosis - Discharge Diagnosis (1) Hypercalcemia Start date: 08/01/17 Status: Acute Discharge Plan - Patient Discharge Instructions ACTIVITY: Continue current activity DIET: continue same diet Additional Instructions: Bring all medicines to your follow up appt. - Follow up Plan Follow up with: Sunil Roque MD [Primary Care Provider] - 08/07/17 Disposition: Home, Self-Halfway Medications: Home Medications Medication Instructions Recorded Confirmed Type ALPRAZolam [Alprazolam 0.25mg 0.25 mg PO DAILY 04/02/17 08/01/17 History Tab] Hydrocodone/Acetaminophen 1 each PO QIDP PRN 04/02/17 08/01/17 History [Hydrocodone-Acetamin 10-325 mg] budesonide-formoterol HFA 160 2 puff INHALATION Q12H 04/12/17 08/01/17 History mcg-4.5 mcg/actuation aerosol inhaler Levothyroxine Sodium 125 mcg PO DAILY 04/16/17 08/01/17 History [Levothyroxine 125mcg (0.125mg) Tab] furosemide 20 mg tablet 20 mg PO DAILY PRN 06/21/17 08/01/17 History Apixaban [Eliquis] 5 mg PO BID 08/01/17 08/01/17 History Aspirin [Aspirin 325mg Tab] 325 mg PO DAILY 08/01/17 08/01/17 History Benzonatate [Benzonatate 100mg 100 mg PO TIDP PRN 08/01/17 08/01/17 History cap] Ergocalciferol (Vitamin D2) 400 unit PO DAILY 08/01/17 08/01/17 History [Vitamin D] Krill Oil 500 mg PO DAILY 08/01/17 08/01/17 History Loratadine [Claritin 10mg Tablet] 10 mg PO DAILY 08/01/17 08/01/17 History Metoprolol Tartrate 50 mg PO BID 08/01/17 08/01/17 History Vitamin A 8,000 unit PO DAILY 08/01/17 08/01/17 History Prescriptions/Medication Reconciliation: New Metoprolol Tartrate [Lopressor 25mg tablet] 25 mg PO BID #60 tab Continue budesonide-formoterol HFA 160 mcg-4.5 mcg/actuation aerosol inhaler 2 puff INHALATION Q12H furosemide 20 mg tablet 20 mg PO DAILY PRN PRN Reason: Fluid ALPRAZolam [Alprazolam 0.25mg Tab] 0.25 mg PO DAILY Hydrocodone/Acetaminophen [Hydrocodone-Acetamin 10-325 mg] 1 each PO QIDP PRN PRN Reason: Severe Pain Levothyroxine Sodium [Levothyroxine 125mcg (0.125mg) Tab] 125 mcg PO DAILY Benzonatate [Benzonatate 100mg cap] 100 mg PO TIDP PRN PRN Reason: Cough Apixaban [Eliquis] 5 mg PO BID Loratadine [Claritin 10mg Tablet] 10 mg PO DAILY Vitamin A 8,000 unit PO DAILY Aspirin [Aspirin 325mg Tab] 325 mg PO DAILY Krill Oil 500 mg PO DAILY Ergocalciferol (Vitamin D2) [Vitamin D] 400 unit PO DAILY Metoprolol Tartrate 50 mg PO BID
== END 2017-08-02 14:59 | disposition home or self-care (01) ==
LOC: INF 11:52 → 2ND 13:50 → INTOOBSV 13:50
PROVIDERS: ADMIT Family Medicine; ATTEND Family Medicine
CPT/HCPCS: 36415; 80048; 80053; 82040; 82310; 84443; 85025; 96360; 96375; G0378; J3489

== ENCOUNTER → 2017-08-07 12:49 | Outpatient (POV) | payer MEDICARE, MEDICAID, SELFPAY ==
[2017-08-10 15:26] LABS: Histoplasma Gal'mannan Ag Ur <0.5 (<0.5 ng/mL)
== END ==
PROVIDERS: Visit Provider Internal Medicine
DX: R91.1 Solitary pulmonary nodule (principal); C85.10 Unspecified B-cell lymphoma, unspecified site
CPT/HCPCS: 36415; 86480; 86606; 86612; 86635; 86698; 87385

== ENCOUNTER → 2017-08-21 15:19 | Outpatient (CLI) | payer MEDICARE, MEDICAID, SELFPAY ==
--- NOTE | 2017-08-21 15:33 | CT_ITS ---
CT chest wo con HISTORY: Follow-up lymphoma, cough, lung nodule ITS.REASON: LUNG NODULE,B-CELL LYMPHOMA,CHRONIC COUGH ORDERING PHYSICIAN: Miguelito Lau MD PATIENT AGE: 77 years Technique: Axial images obtained. Sagittal and coronal reformatted images are also generated and reviewed. All CT scans at the facility use one or more dose reduction, viz: automated exposure control; ma/kV adjustment per patient size (including targeted exams where dose is matched to indication; i.e. head); or iterative reconstruction technique. CONTRAST: None COMPARISON: 06/21/2017 FINDINGS: There is cardiomegaly with four-chamber enlargement most extensive at the left ventricle and left atrium with calcification of the mitral valve annulus. There is mild thickening of the pericardium anteriorly consistent with a small pericardial effusion. There are scattered small nodes in the mediastinum. There is bilateral axillary adenopathy which has shown some improvement compared to the previous exam. There are small to medium sized bilateral pleural effusions which have developed since the previous study. There are numerous pulmonary nodules which have developed in the interval both lungs. The largest nodule on the right in the right lower lobe measuring 3 cm. There is thickening of the bronchovascular markings in the perihilar region. Consolidation is present in both lung bases. No obvious bony destructive lesion. Upper abdominal images are unremarkable. IMPRESSION: 1. Interval development of multiple bilateral pulmonary nodular opacities compatible with metastatic disease 2. Bilateral pleural effusions with bilateral lower lobe pneumonia. 3. Cardiomegaly with small pericardial effusion. 3. Bilateral axillary adenopathy overall slightly improved
== END ==
PROVIDERS: Family Provider Family Medicine; PCP Family Medicine; Visit Provider Internal Medicine
DX: R91.1 Solitary pulmonary nodule (principal); C85.10 Unspecified B-cell lymphoma, unspecified site; R05 Cough
CPT/HCPCS: 71250

== ENCOUNTER 2017-08-24 20:12 | Inpatient (IN) ==
[2017-08-24 20:42] LABS: Basophils # 0.1 K/mm3 (0-0.2); Basophils % 0.9 % (0.1-2.0); Eosinophils # 0.7 K/mm3 (0.0-0.4); Eosinophils % 6.3 % (0.1-12.0); Hematocrit 47.9 % (37.0-47.0); Hemoglobin 14.4 g/dL (12.2-16.2); Lymphocytes # 2.6 K/mm3 (0.7-4.5); Mean Corpuscular HGB Conc 30.2 g/dL (31.8-35.4); Mean Corpuscular Hemoglobin 29.6 pg (27.0-31.2); Mean Corpuscular Volume 98.1 fl (81-99); Monocytes # 0.8 K/mm3 (0.1-1.0); Monocytes % 6.8 % (1.7-9.3); Neutrophils # 7.5 K/mm3 (1.8-7.8); Neutrophils % 64.1 % (37.0-80.0); Platelet Count 252 K/mm3 (142-424); Red Blood Count 4.88 M/mm3 (4.20-5.40); Red Cell Distribution Width 14.7 % (11.5-17.5); White Blood Count 11.7 K/mm3 (4.8-10.8)
[2017-08-24 21:15] LABS: Alanine Aminotransferase 13 U/L (12-78); Albumin Level 2.8 gm/dL (3.4-5.0); Alkaline Phosphatase 91 U/L (46-116); Bilirubin,Total 0.5 mg/dL (0.2-1.0); Blood Urea Nitrogen 29 mg/dL (7-18); Carbon Dioxide 26 mmol/L (21.0-32.0); Chloride 97 mmol/L (98-107); Glucose 92 mg/dL (74-106); Sodium 135 mmol/L (136-145); Total Protein,Serum 6.9 gm/dL (6.4-8.2)
[2017-08-24 21:27] LABS: Anion Gap 16.8 mEq/L (5-15); Aspartate Amino Transferase 55 U/L (15-37); Bilirubin,Direct < 0.1 mg/dL (0.0-0.2); Bilirubin,Indirect 0.4 mg/dL (0.0-0.9); Potassium 4.8 mmoL/L (3.5-5.1)
--- NOTE | 2017-08-24 21:34 | Emergency Department Note ---
ED Disposition Clinical Impression: Bronchitis, RBBB (right bundle branch block with left anterior fascicular block ), Renal insufficiency Non-Hodgkin lymphoma Qualifiers: Non-Hodgkin lymphoma type: unspecified type Lymphoma site: unspecified region Qualified Code(s): C85.90 - Non-Hodgkin lymphoma, unspecified, unspecified site Disposition: Admitted as Observation Condition on Discharge: Good Referrals: Sunil Roque MD [Primary Care Provider] - - Critical Care Critical Care Time: No Attestation: On 08/24/17, the high probability of a clinically significant, sudden or life threatening deterioration of the following system(s) required my full and direct attention, intervention and personal management. The time I documented below is in addition to time spent performing reported procedures but includes the following listed in this critical care notation. Medical Decision Making - Medical Records Medical records reviewed: Yes: I reviewed the patient's medical records. - Sarath Inquiry Pt receiving controlled substance: No Vital Signs: 08/24/17 20:13 08/24/17 21:00 Temperature 97.9 F Temperature Source Oral Pulse Rate 64 Pulse Rate [Right Radial] 89 Respiratory Rate 18 Blood Pressure [Right Arm] 145/101 Blood Pressure Mean [Right Arm] 115 Blood Pressure Source [Right Arm] Automatic Cuff Blood Pressure Position [Right Arm] Sitting 02 Sat by Pulse Oximetry 91 L Oxygen Delivery Method Room Air - Lab Data Lab results reviewed: Yes: I reviewed the patient's lab results. Lab Results 08/24/17 20:25: WBC 11.7 H, RBC 4.88, Hgb 14.4, Hct 47.9 H, MCV 98.1, MCH 29.6, MCHC 30.2 L, RDW 14.7, Plt Count 252, MPV 9.0, Neut % (Auto) 64.1, Lymph % (Auto ) 22.0, Forest % (Auto) 6.8, Eos % (Auto) 6.3, Baso % (Auto) 0.9, Neut # (Auto) 7.5, Lymph # (Auto) 2.6, [place] # (Auto) 0.8, Eos # (Auto) 0.7 H, Baso # (Auto) 0.1 08/24/17 20:25: Troponin I 0.04, Amylase 19 L, Lipase 61 L 08/24/17 20:25: Lactic Acid 4.6 H 08/24/17 20:25: Sodium 135 L, Potassium 4.8, Chloride 97 L, Carbon Dioxide 26, Anion Gap 16.8 H, BUN 29 H, Creatinine 1.67 H, Estimated Creat Clear 38, Estimated GFR 30 L, Est GFR ( Amer) 36 L, Glucose 92, Total Bilirubin 0.5 , Direct Bilirubin < 0.1, Indirect Bilirubin 0.4, AST 55 H, ALT 13, Alkaline Phosphatase 91, Total Protein 6.9, Albumin 2.8 L Result diagrams: 08/24/17 20:25 08/24/17 20:25 Orders (Tests/Meds): ED MEDICATIONS Generic Name Dose Route Start Last Admin Trade Name Freq PRN Reason Stop Dose Admin Nitroglycerin 0.4 mg 08/24/17 20:29 Nitrostat 0.4mg Sl Tablet SL 09/23/17 20:28 Q5MINP PRN Chest Pain Discontinued Medications Generic Name Dose Route Start Last Admin Trade Name Freq PRN Reason Stop Dose Admin Albuterol/Ipratropium 3 ml 08/24/17 20:33 08/24/17 20:59 Duoneb 3ml Neb IH 08/24/17 20:34 3 ml ONCE ONE Administration Aspirin 243 mg 08/24/17 20:29 08/24/17 20:48 Aspirin 81mg Chewable Tablet PO 08/24/17 20:30 243 mg ONCE ONE Administration Methylprednisolone Sodium Succinate 125 mg 08/24/17 20:38 08/24/17 20:48 Solu-Medrol 125mg/2ml Vial IV 08/24/17 20:39 125 mg ONCE ONE Administration ORDERS Category Date Time Status Chest XR 2 view (NOT portable) [XR chest 2V] Stat Exams 08/24/17 20:29 Taken BNP [B-Type Natriuretic Peptide] Stat Lab 08/24/17 21:47 Ordered Calcium Stat Lab 08/24/17 21:50 Ordered - Radiology Data #1 Image(s): Chest Image Reviewed: Yes I reviewed the patient's radiology image Preliminary Findings: Abnormal (pleural effusions and possible infl vs nodules ) Resp/SOB HPI - General Chief Complaint: Chest Pain Stated Complaint: sob/chest pain Time Seen by Provider: 08/24/17 20:20 Mode of Arrival: Ambulatory Source of Information: Patient, Relative, Medical Record Limitations: No Limitations Description of Symptoms (Recalled from ER Triage Doc. by RN): a couple days complaint of sob, cant lay flat, reports chest pain, has not recieved results of ct scan done recently - History of Present Illness progressive sob over the last few days with occ prod cough without hemptysis - no ant chest pain and no fever but has nocturnal sweats - MD Complaint: shortness of breath, cough Onset (ago): day(s) Severity: moderate Exacerbating factors: lying flat Known history of: other (nonhogdkins ) - Related Data Home oxygen amount: none Home Medications Medication Instructions Recorded Confirmed ALPRAZolam [Alprazolam 0.25mg 0.25 mg PO DAILY 04/02/17 08/24/17 Tab] Hydrocodone/Acetaminophen 1 each PO QIDP PRN 04/02/17 08/24/17 [Hydrocodone-Acetamin 10-325 mg] budesonide-formoterol HFA 160 2 puff INHALATION Q12H 04/12/17 08/24/17 mcg-4.5 mcg/actuation aerosol inhaler Levothyroxine Sodium 125 mcg PO DAILY 04/16/17 08/24/17 [Levothyroxine 125mcg (0.125mg) Tab] furosemide 20 mg tablet 20 mg PO DAILY PRN 06/21/17 08/24/17 Apixaban [Eliquis] 5 mg PO BID 08/01/17 08/24/17 Aspirin [Aspirin 325mg Tab] 325 mg PO DAILY 08/01/17 08/24/17 Benzonatate [Benzonatate 100mg 100 mg PO TIDP PRN 08/01/17 08/24/17 cap] Ergocalciferol (Vitamin D2) 400 unit PO DAILY 08/01/17 08/24/17 [Vitamin D] Krill Oil 500 mg PO DAILY 08/01/17 08/24/17 Loratadine [Claritin 10mg Tablet] 10 mg PO DAILY 08/01/17 08/24/17 Vitamin A 8,000 unit PO DAILY 08/01/17 08/24/17 Metoprolol Tartrate [Lopressor 25 mg PO BID 08/24/17 08/24/17 25mg tablet] Allergies Allergy/AdvReac Type Severity Reaction Status Date / Time buspirone [From BuSpar] Allergy Severe SUICIDAL Verified 08/01/17 10:49 IDEATION prednisone Allergy Severe INTERNAL Verified 08/01/17 10:49 ORGANOMEGALY propoxyphene Allergy Severe RESPIRATORY Verified 08/01/17 10:49 [From Darvocet-N] DEPRESSION tramadol Allergy Severe SEVERE Verified 08/01/17 10:49 WITHDRAWAL adhesive Allergy Intermediate I-RASH Verified 08/01/17 10:49 bupropion [From Wellbutrin] Allergy Intermediate DEPRESSION Verified 08/24/17 20 :14 codeine Allergy Intermediate LEG PAIN, Verified 08/24/17 20:14 STOMACH CRMPS cyclobenzaprine Allergy Intermediate MUSCLE Verified 08/24/17 20:14 [From Flexeril] SPASMS diclofenac [From Voltaren] Allergy Intermediate I-HIVES Verified 08/24/17 20:14 escitalopram [From Lexapro] Allergy Intermediate IRREGULAR Verified 08/24/17 20: 14 HEART RATE, NUMBNESS,TINGLING gabapentin [From Neurontin] Allergy Intermediate I-ITCHING, Verified 08/24/17 20 :14 SLURRED SPEECH, HEAD PAIN influenza virus vaccine, Allergy Intermediate I-RASH Verified 08/24/17 20:14 specific [influenza virus vacc,specific] meloxicam [From Mobic] Allergy Intermediate SORES, Verified 08/24/17 20:14 ACNE, DIARRHEA naproxen [From Naprosyn] Allergy Intermediate STOMACH Verified 08/24/17 20:14 PAIN, CRAMPS Penicillins Allergy Intermediate I-HIVES Verified 08/24/17 20:14 promethazine [From Phenergan] Allergy Intermediate LOSS OF Verified 08/24/17 20: 14 SPEECH, MUSCLE CONTRACTIONS, NAUSEA rosuvastatin [From Crestor] Allergy Intermediate NECK, LEG, Verified 08/24/17 20 :14 AND JOINT PAIN; NUMBNESS simvastatin [From Vytorin] Allergy Intermediate TINGLING Verified 08/24/17 20:14 IN FEET & ANKLES; NUMBNESS tetanus and diphtheria Allergy Intermediate I-RASH, Verified 08/24/17 20:14 toxoids SWELLING, [tetanus & diphtheria PAIN toxoids] venlafaxine [From Effexor] Allergy Intermediate DISORIENTED Verified 08/24/17 20 :14 venom-honey bee Allergy Intermediate SWELLING Verified 08/24/17 20:14 [bee venom (honey bee)] paroxetine [From Paxil] Allergy Mild DRY MOUTH, Verified 08/24/17 20:14 UNCONTROLLED HICCUPS sertraline [From Zoloft] Allergy Mild UNCONTROLLED Verified 08/24/17 20:14 HICCUPS duloxetine [From Cymbalta] Allergy Unknown Verified 08/24/17 20:14 ezetimibe [From Zetia] Allergy Unknown Verified 08/24/17 20:14 honey Allergy Unknown Verified 08/24/17 20:14 celecoxib [From Celebrex] AdvReac Mild HEADACHE Verified 08/24/17 20:14 diazepam [From Valium] AdvReac Mild HYPERACTIVE Verified 08/24/17 20:14 morphine AdvReac Mild NA-NAUSEA/VOMITING; Verified 08/24/17 20:14 DISORIENTATION ULTRAVIOLET LIGHT Allergy Unknown Uncoded 08/01/17 10:49 CAT GUT SUTURES AdvReac Unknown Uncoded 08/01/17 10:49 contrave AdvReac Uncoded 08/01/17 10:[address] [facility] History I have reviewed the patient's past medical history: Yes Medical History: Reports:: Anxiety, Arrhythmia, Atrial Fibrillation, Cancer (non ,hodgekins lymphoma), Congestive Heart Failure, Coronary Artery Disease, Cerebrovascular Accident, Deep Vein Thrombosis, Gastroesophageal Reflux Disease( GERD), Hypertension, Myocardial Infarction, Osteoporosis, Peripheral Artery Disease, Peripheral Vascular Disease Denies:: Diabetes Mellitus Type 1, Diabetes Mellitus Type 2, MRSA, Seizures Other Medical History: Reports: Anemia, Arthritis, Chemotherapy, Hoarseness, Hypothyroidism, Osteoporosis, Sinus Problems, Thyroid Disease Comment: Lymphoma Laterality Cases: Left: Breast Biopsy, Right: ACL Repair, Bilateral: Tonsillectomy Other Surgeries: Yes: Cancer Surgery, Cardiac Catheterization, Colonoscopy, C- section, Hernia Repair, Skin Cancer Excision, Tubal Ligation Amputation: No Fractures: No ((L) foot, (R) foot) - Social History Smoking Status: Former smoker Tobacco Type: cigarettes #Yrs smoked (if former smoker): 40 Alcohol Intake: never Alcohol Intake Frequency:: other Substance Use Type: denies use Occupational Status: retired Housing: house Household Members: none - Psychiatric History Expresses thoughts of harming self/others: None Suicide Plan Description: No Plan Pschychiatric History:: Reports:: Anxiety Family Hx:: Cancer, Coronary Artery Disease, Diabetes, Heart Attack, Hyperlipidemia, Thyroid Disorder ROS Obtained: Yes All systems reviewed & no additional complaints - Constitutional Constitutional: Denies fever(s) - Eyes Eyes: Denies change in vision - ENT Ears, Nose, Mouth, and Throat: Denies sore throat - Cardiovascular Cardiovascular: Denies chest pain - Respiratory Respiratory: Yes cough, Yes dyspnea, No coughing up blood - Gastrointestinal Gastrointestingal: Denies: abdominal pain, vomiting - Genitourinary Female Genitourinary: Denies hematuria - Musculoskeletal Musculoskeletal: Denies joint pain, Denies joint swelling - Integumentary/Breasts Skin/Breast: Denies rash - Neurologic Neurologic: Denies headache(s), Denies seizure-like activity Physical Exam - General General appearance: in no apparent distress - Head Head exam: normocephalic - Eye Eye exam: Present: PERRL, EOMI. Absent: scleral icterus - ENT ENT exam: Present: mucous membranes dry - Neck Neck exam: Present: trachea midline - Respiratory Respiratory exam: Present: other (rhonchi and dec bs bilat ). Absent: respiratory distress - Cardiovascular Cardiovascular exam: Present: regular rate, systolic murmur, +S4 - Abdominal Exam Abdominal exam: Present: soft - Extremities Exam Extremities exam: Absent: calf tenderness - Neurological Exam Neurological exam: Present: alert, oriented X3, CN II-XII intact - Psychiatric Psychiatric exam: Present: normal affect - Skin Skin exam: Absent: rash
[2017-08-25 05:05] LABS: Basophils % 0.4 % (0.1-2.0); Eosinophils # 0.1 K/mm3 (0.0-0.4); Eosinophils % 0.8 % (0.1-12.0); Hematocrit 35.6 % (37.0-47.0); Lymphocytes # 1.4 K/mm3 (0.7-4.5); Lymphocytes % 15.1 K/mm3 (10-50); Mean Corpuscular HGB Conc 35.6 g/dL (31.8-35.4); Mean Corpuscular Hemoglobin 34.7 pg (27.0-31.2); Mean Corpuscular Volume 97.5 fl (81-99); Mean Platelet Volume 9.9 fl (7.4-10.4); Monocytes # 0.2 K/mm3 (0.1-1.0); Monocytes % 2.5 % (1.7-9.3); Neutrophils # 7.6 K/mm3 (1.8-7.8); Neutrophils % 81.2 % (37.0-80.0); Platelet Count 194 K/mm3 (142-424); Red Blood Count 3.65 M/mm3 (4.20-5.40); Red Cell Distribution Width 14.6 % (11.5-17.5); White Blood Count 9.4 K/mm3 (4.8-10.8)
[2017-08-25 05:10] LABS: Hemoglobin 12.7 g/dL (12.2-16.2)
--- NOTE | 2017-08-25 06:55 | History & Physical Report ---
*Admission Date: 08/24/17 *Chief complaint: Shortness air/fatigue/coughing *History of present illness: 77-year-old white female with ongoing lymphoma, also with hypercalcemia of malignancy whose chemotherapy is on hold because of this issue, along with arrhythmia issues and hypertension, who presented to the emergency department last night with chief complaints of fatigue, cough, shortness of air and sputum production. Was found to be fatigued, mildly dehydrated, evidence of bronchopneumonia in both lower lung nguyen on chest x-ray as well as crackles in her lung nguyen. Admitted for IV antibiotics given her immunosuppressed status with lymphoma. This morning she feels marginally better with less shortness of air after some breathing treatments and 1 dose of steroids. Has lots of concerns about her calcium levels and her fatigue from recent cardiac medicines that have been started for her dysrhythmias and tachycardias. [facility] History I have reviewed the patient's past medical history: Yes Medical History: Reports:: Anxiety, Arrhythmia, Atrial Fibrillation, Cancer (non ,hodgekins lymphoma), Congestive Heart Failure, Coronary Artery Disease, Cerebrovascular Accident, Deep Vein Thrombosis, Gastroesophageal Reflux Disease( GERD), Hypertension, Myocardial Infarction, Osteoporosis, Peripheral Artery Disease, Peripheral Vascular Disease Denies:: Diabetes Mellitus Type 1, Diabetes Mellitus Type 2, MRSA, Seizures Other Medical History: Reports: Anemia, Arthritis, Chemotherapy, Hoarseness, Hypothyroidism, Osteoporosis, Sinus Problems, Thyroid Disease Laterality Cases: Left: Breast Biopsy, Right: ACL Repair, Bilateral: Tonsillectomy Other Surgeries: Yes: Cancer Surgery, Cardiac Catheterization, Colonoscopy, C- section, Hernia Repair, Skin Cancer Excision, Tubal Ligation Amputation: No Fractures: No ((L) foot, (R) foot) - *Social History Educational Level: Attended College Smoking Status: Former smoker Tobacco Type: cigarettes # Packs/Day (cigarettes): 1 #Yrs smoked (if former smoker): 40 Alcohol Intake: never Alcohol Intake Frequency:: other Substance Use Type: denies use Occupational Status: retired Housing: house Household Members: none - Psychiatric History Expresses thoughts of harming self/others: None Suicide Plan Description: No Plan Pschychiatric History:: Reports:: Anxiety *Family Hx:: Cancer, Coronary Artery Disease, Diabetes, Heart Attack, Hyperlipidemia, Thyroid Disorder Review of Systems - Constitutional Reports anorexia, Reports body ache(s), Reports daytime sleepiness, Reports fatigue, Reports fever(s), Reports lack of energy, Denies chills, Denies headache(s), Denies increased appetite - Eyes Reports blurry vision, Reports change in vision - ENT Reports abnormal hearing - *Cardiovascular Reports shortness of breath, Reports shortness of breath with activity, Reports irregular heart rhythm, Reports shortness of breath when lying down, Reports rapid, pounding, or irregular heartbeat, Denies chest pain, Denies chest pain at rest, Denies chest pain with activity - *Respiratory Reports change in phlegm color, Reports chest congestion, Reports cough, Reports shortness of breath, Reports excessive phlegm production - *Gastrointestinal Denies abdominal pain, Denies belching, Denies bloating, Denies coffee ground vomit - *Musculoskeletal Denies abnormal walking, Denies joint pain - *Neurologic Denies abnormal walking, Denies headache(s), Denies seizure-like activity - Psychiatric Denies abnormal sleep pattern Meds Home Medications Medication Instructions Recorded Confirmed Type ALPRAZolam [Alprazolam 0.25mg 0.25 mg PO DAILY 04/02/17 08/25/17 History Tab] Hydrocodone/Acetaminophen 1 each PO QIDP PRN 04/02/17 08/25/17 History [Hydrocodone-Acetamin 10-325 mg] budesonide-formoterol HFA 160 2 puff INHALATION Q12H 04/12/17 08/25/17 History mcg-4.5 mcg/actuation aerosol inhaler Levothyroxine Sodium 125 mcg PO DAILY 04/16/17 08/25/17 History [Levothyroxine 125mcg (0.125mg) Tab] furosemide 20 mg tablet 20 mg PO DAILY PRN 06/21/17 08/25/17 History Apixaban [Eliquis] 5 mg PO BID 08/01/17 08/25/17 History Aspirin [Aspirin 325mg Tab] 325 mg PO DAILY 08/01/17 08/25/17 History Ergocalciferol (Vitamin D2) 400 unit PO DAILY 08/01/17 08/25/17 History [Vitamin D] Krill Oil 1,000 mg PO DAILY 08/01/17 08/25/17 History Loratadine [Claritin 10mg Tablet] 10 mg PO DAILY 08/01/17 08/25/17 History Vitamin A 8,000 unit PO DAILY 08/01/17 08/25/17 History Metoprolol Tartrate [Lopressor 25 mg PO BID 08/24/17 08/25/17 History 25mg tablet] Allergies Allergy/AdvReac Type Severity Reaction Status Date / Time buspirone [From BuSpar] Allergy Severe SUICIDAL Verified 08/01/17 10:49 IDEATION prednisone Allergy Severe INTERNAL Verified 08/01/17 10:49 ORGANOMEGALY propoxyphene Allergy Severe RESPIRATORY Verified 08/01/17 10:49 [From Darvocet-N] DEPRESSION tramadol Allergy Severe SEVERE Verified 08/01/17 10:49 WITHDRAWAL adhesive Allergy Intermediate I-RASH Verified 08/01/17 10:49 bupropion [From Wellbutrin] Allergy Intermediate DEPRESSION Verified 08/24/17 20 :14 codeine Allergy Intermediate LEG PAIN, Verified 08/24/17 20:14 STOMACH CRMPS cyclobenzaprine Allergy Intermediate MUSCLE Verified 08/24/17 20:14 [From Flexeril] SPASMS diclofenac [From Voltaren] Allergy Intermediate I-HIVES Verified 08/24/17 20:14 escitalopram [From Lexapro] Allergy Intermediate IRREGULAR Verified 08/24/17 20: 14 HEART RATE, NUMBNESS,TINGLING gabapentin [From Neurontin] Allergy Intermediate I-ITCHING, Verified 08/24/17 20 :14 SLURRED SPEECH, HEAD PAIN influenza virus vaccine, Allergy Intermediate I-RASH Verified 08/24/17 20:14 specific [influenza virus vacc,specific] meloxicam [From Mobic] Allergy Intermediate SORES, Verified 08/24/17 20:14 ACNE, DIARRHEA naproxen [From Naprosyn] Allergy Intermediate STOMACH Verified 08/24/17 20:14 PAIN, CRAMPS Penicillins Allergy Intermediate I-HIVES Verified 08/24/17 20:14 promethazine [From Phenergan] Allergy Intermediate LOSS OF Verified 08/24/17 20: 14 SPEECH, MUSCLE CONTRACTIONS, NAUSEA rosuvastatin [From Crestor] Allergy Intermediate NECK, LEG, Verified 08/24/17 20 :14 AND JOINT PAIN; NUMBNESS simvastatin [From Vytorin] Allergy Intermediate TINGLING Verified 08/24/17 20:14 IN FEET & ANKLES; NUMBNESS tetanus and diphtheria Allergy Intermediate I-RASH, Verified 08/24/17 20:14 toxoids SWELLING, [tetanus & diphtheria PAIN toxoids] venlafaxine [From Effexor] Allergy Intermediate DISORIENTED Verified 08/24/17 20 :14 venom-honey bee Allergy Intermediate SWELLING Verified 08/24/17 20:14 [bee venom (honey bee)] paroxetine [From Paxil] Allergy Mild DRY MOUTH, Verified 08/24/17 20:14 UNCONTROLLED HICCUPS sertraline [From Zoloft] Allergy Mild UNCONTROLLED Verified 08/24/17 20:14 HICCUPS duloxetine [From Cymbalta] Allergy Unknown Verified 08/24/17 20:14 ezetimibe [From Zetia] Allergy Unknown Verified 08/24/17 20:14 honey Allergy Unknown Verified 08/24/17 20:14 celecoxib [From Celebrex] AdvReac Mild HEADACHE Verified 08/24/17 20:14 diazepam [From Valium] AdvReac Mild HYPERACTIVE Verified 08/24/17 20:14 morphine AdvReac Mild NA-NAUSEA/VOMITING; Verified 08/24/17 20:14 DISORIENTATION ULTRAVIOLET LIGHT Allergy Unknown Uncoded 08/01/17 10:49 CAT GUT SUTURES AdvReac Unknown Uncoded 08/01/17 10:49 contrave AdvReac Uncoded 08/01/17 10:49 Exam Vital signs and Labs for Last 24 Hours: Temp Pulse Resp BP Pulse Ox 98.4 F 79 18 135/75 93 L 08/25/17 04:00 08/25/17 05:51 08/25/17 04:00 08/25/17 04:00 08/25/17 05:51 Laboratory Results - last 24 hr 08/24/17 20:25: WBC 11.7 H, RBC 4.88, Hgb 14.4, Hct 47.9 H, MCV 98.1, MCH 29.6, MCHC 30.2 L, RDW 14.7, Plt Count 252, MPV 9.0, Neut % (Auto) 64.1, Lymph % (Auto ) 22.0, [place] % (Auto) 6.8, Eos % (Auto) 6.3, Baso % (Auto) 0.9, Neut # (Auto) 7.5, Lymph # (Auto) 2.6, [place] # (Auto) 0.8, Eos # (Auto) 0.7 H, Baso # (Auto) 0.1 08/24/17 20:25: Troponin I 0.04, Amylase 19 L, Lipase 61 L 08/24/17 20:25: Lactic Acid 4.6 H 08/24/17 20:25: Sodium 135 L, Potassium 4.8, Chloride 97 L, Carbon Dioxide 26, Anion Gap 16.8 H, BUN 29 H, Creatinine 1.67 H, Estimated Creat Clear 38, Estimated GFR 30 L, Est GFR ( Amer) 36 L, Glucose 92, Total Bilirubin 0.5 , Direct Bilirubin < 0.1, Indirect Bilirubin 0.4, AST 55 H, ALT 13, Alkaline Phosphatase 91, Total Protein 6.9, Albumin 2.8 L 08/24/17 20:25: B-Natriuretic Peptide 841 H 08/24/17 20:25: Calcium 11.9 H 08/24/17 23:15: Troponin I 0.04 08/25/17 00:30: Troponin I 0.04 08/25/17 00:30: Lactic Acid Fup @ 4Hr 4.0 H 08/25/17 02:35: Lactic Acid Fup @ 2Hr 3.9 H 08/25/17 04:30: WBC 9.4, RBC 3.65 L D, Hgb 12.7 D, Hct 35.6 L, MCV 97.5, MCH 34.7 H, MCHC 35.6 H, RDW 14.6, Plt Count 194, MPV 9.9, Neut % (Auto) 81.2 H, Lymph % (Auto) 15.1, [place] % (Auto) 2.5, Eos % (Auto) 0.8, Baso % (Auto) 0.4, Neut # (Auto) 7.6, Lymph # (Auto) 1.4, [place] # (Auto) 0.2, Eos # (Auto) 0.1, Baso # (Auto) 0.0 08/25/17 04:30: Sodium 129 L, Potassium 4.0, Chloride 98, Carbon Dioxide 26, Anion Gap 9.0, BUN 31 H, Creatinine 1.67 H, Estimated Creat Clear 37, Estimated GFR 30 L, Est GFR ( Amer) 36 L, Glucose 139 H D, Magnesium 1.6, Troponin I 0.03 08/25/17 04:30: Calcium 10.9 H I & O for Last 24 hours: Intake & Output 08/22/17 08/23/17 08/24/17 08/25/17 11:59 11:59 11:59 11:59 Intake Total 663 / 663 Output Total 1100 / 1100 Balance -437 / -437 Weight 189 lb 7 oz Narrative: Patient is sleeping, when awakened she is alert, pleasant. Knowledgeable about her disease issues. Heart rate regular. Murmur noted at 2/6 holosystolic murmur. Lungs have rhonchi and crackles in both lung nguyen, worse on the right middle and lower lung field. Abdomen soft and nontender, no edema or clubbing. Neurologically she is intact. H&P: Result - Labs Labs: Short CBC 08/24/17 08/25/17 Range/Units 20:25 04:30 WBC 11.7 H 9.4 (4.8-10.8) K/mm3 Hgb 14.4 12.7 D (12.2-16.2) g/dL Hct 47.9 H 35.6 L (37.0-47.0) % Plt Count 252 194 (142-424) K/mm3 BMP 08/24/17 08/24/17 08/25/17 20:25 20:25 04:30 Sodium 135 L 129 L Potassium 4.8 4.0 Chloride 97 L 98 Carbon Dioxide 26 26 BUN 29 H 31 H Creatinine 1.67 H 1.67 H Glucose 92 139 H D Calcium 11.9 H 08/25/17 04:30 Sodium Potassium Chloride Carbon Dioxide BUN Creatinine Glucose Calcium 10.9 H Cardiac Enzymes 08/24/17 08/24/17 08/25/17 Range/Units 20:25 23:15 00:30 Troponin I 0.04 0.04 0.04 (0.00-0.06) ng/ml 08/25/17 Range/Units 04:30 Troponin I 0.03 (0.00-0.06) ng/ml Liver Function 08/24/17 Range/Units 20:25 Total Bilirubin 0.5 (0.2-1.0) mg/dL Direct Bilirubin < 0.1 (0.0-0.2) mg/dL AST 55 H (15-37) U/L ALT 13 (12-78) U/L Alkaline Phosphatase 91 (46-116) U/L Albumin 2.8 L (3.4-5.0) gm/dL Assessment and Plan (1) Hypercalcemia Current visit: Yes Status: Acute Category: Medical Code(s): E83.52 - Hypercalcemia Probable malignancy issues. One-point lower than last night. Continue low- dose IV fluids. Check calcium levels tomorrow (2) Bronchitis Current visit: Yes Status: Acute Category: Medical Code(s): J40 - Bronchitis, not specified as acute or chronic Clinically she seems like a pneumonia. After hydration chest x-ray might reveal this. Agree with admission for IV antibiotics. (3) RBBB (right bundle branch block with left anterior fascicular block) Current visit: Yes Status: Acute Category: Medical Code(s): I45.2 - Bifascicular block (4) Renal insufficiency Current visit: Yes Status: Acute Category: Medical Code(s): N28.9 - Disorder of kidney and ureter, unspecified Creatinine currently stable. Watch closely (5) Non-Hodgkin lymphoma Current visit: Yes Status: Chronic Qualifiers: Non-Hodgkin lymphoma type: unspecified type Lymphoma site: unspecified region Qualified Code(s): C85.90 - Non-Hodgkin lymphoma, unspecified, unspecified site Category: Medical Code(s): C85.90 - Non-Hodgkin lymphoma, unspecified, unspecified site Follow calcium as noted above, continue to follow with oncology here
--- NOTE | 2017-08-25 09:32 | Pharmacy Consult Notes ---
[facility] Pharmacy VTE Monitoring - Patient Demographics Admission date: 08/25/17 Report Date: 08/25/17 Time: 09:31 Allergies/Adverse Reactions: Patient Allergies buspirone [From BuSpar] Allergy (Severe, Verified 08/01/17 10:49) SUICIDAL IDEATION prednisone Allergy (Severe, Verified 08/01/17 10:49) INTERNAL ORGANOMEGALY propoxyphene [From Darvocet-N] Allergy (Severe, Verified 08/01/17 10:49) RESPIRATORY DEPRESSION tramadol Allergy (Severe, Verified 08/01/17 10:49) SEVERE WITHDRAWAL adhesive Allergy (Intermediate, Verified 08/01/17 10:49) I-RASH bupropion [From Wellbutrin] Allergy (Intermediate, Verified 08/24/17 20:14) DEPRESSION codeine Allergy (Intermediate, Verified 08/24/17 20:14) LEG PAIN, STOMACH CRMPS cyclobenzaprine [From Flexeril] Allergy (Intermediate, Verified 08/24/17 20:14) MUSCLE SPASMS diclofenac [From Voltaren] Allergy (Intermediate, Verified 08/24/17 20:14) I-HIVES escitalopram [From Lexapro] Allergy (Intermediate, Verified 08/24/17 20:14) IRREGULAR HEART RATE, NUMBNESS,TINGLING gabapentin [From Neurontin] Allergy (Intermediate, Verified 08/24/17 20:14) I-ITCHING, SLURRED SPEECH, HEAD PAIN influenza virus vaccine, specific [influenza virus vacc,specific] Allergy ( Intermediate, Verified 08/24/17 20:14) I-RASH meloxicam [From Mobic] Allergy (Intermediate, Verified 08/24/17 20:14) SORES, ACNE, DIARRHEA naproxen [From Naprosyn] Allergy (Intermediate, Verified 08/24/17 20:14) STOMACH PAIN, CRAMPS Penicillins Allergy (Intermediate, Verified 08/24/17 20:14) I-HIVES promethazine [From Phenergan] Allergy (Intermediate, Verified 08/24/17 20:14) LOSS OF SPEECH, MUSCLE CONTRACTIONS, NAUSEA rosuvastatin [From Crestor] Allergy (Intermediate, Verified 08/24/17 20:14) NECK, LEG, AND JOINT PAIN; NUMBNESS simvastatin [From Vytorin] Allergy (Intermediate, Verified 08/24/17 20:14) TINGLING IN FEET & ANKLES; NUMBNESS tetanus and diphtheria toxoids [tetanus & diphtheria toxoids] Allergy ( Intermediate, Verified 08/24/17 20:14) I-RASH, SWELLING, PAIN venlafaxine [From Effexor] Allergy (Intermediate, Verified 08/24/17 20:14) DISORIENTED venom-honey bee [bee venom (honey bee)] Allergy (Intermediate, Verified 20:14) SWELLING paroxetine [From Paxil] Allergy (Mild, Verified 08/24/17 20:14) DRY MOUTH, UNCONTROLLED HICCUPS sertraline [From Zoloft] Allergy (Mild, Verified 08/24/17 20:14) UNCONTROLLED HICCUPS duloxetine [From Cymbalta] Allergy (Unknown, Verified 08/24/17 20:14) ezetimibe [From Zetia] Allergy (Unknown, Verified 08/24/17 20:14) honey Allergy (Unknown, Verified 08/24/17 20:14) celecoxib [From Celebrex] Adverse Reaction (Mild, Verified 08/24/17 20:14) HEADACHE diazepam [From Valium] Adverse Reaction (Mild, Verified 08/24/17 20:14) HYPERACTIVE morphine Adverse Reaction (Mild, Verified 08/24/17 20:14) NA-NAUSEA/VOMITING; DISORIENTATION ULTRAVIOLET LIGHT Allergy (Unknown, Uncoded 08/01/17 10:49) CAT GUT SUTURES Adverse Reaction (Unknown, Uncoded 08/01/17 10:49) contrave Adverse Reaction (Uncoded 08/01/17 10:49) Height: 1.7 m Weight: 85.927 kg Patient Problems: Current Active Problems Non-Hodgkin lymphoma (Chronic) RBBB (right bundle branch block with left anterior fascicular block) (Acute) Bronchitis (Acute) Renal insufficiency (Acute) Hypercalcemia (Acute) - VTE Risk Labs: VTE Related Lab Results Hgb 12.7 g/dL (12.2-16.2) D 08/25/17 04:30 Hct 35.6 % (37.0-47.0) L 08/25/17 04:30 Plt Count 194 K/mm3 (142-424) 08/25/17 04:30 BUN 31 mg/dL (7-18) H 08/25/17 04:30 Creatinine 1.67 mg/dL (0.55-1.02) H 08/25/17 04:30 Estimated Creat Clear 37 mL/min (0-300) 08/25/17 04:30 VTE Score: 8 VTE Risk Level: Moderate Risk - Prophylaxis Types of VTE Prophylaxis: Pharmacological (ELIQUIS HOME MED RESTARTED) Location of Applied Device: Bilateral Lower Extremeties Pharmacologic Type: Other (ELIQUIS) - VTE Diagnosis Confirmed Comment: ELIQUIS STARTED
--- NOTE | 2017-08-26 07:27 | Progress Note ---
Internal Medicine - PN: Subj *Date: 08/26/17 *Time: 07:23 Interval history: Patient reports of constant short of breath. This is also documented in nursing notes. Patient is quite talkative and does not show any signs of dyspnea. Room air sat overnight was checked and was 92% on 2 L via nasal cannula. Patient's cough is dry and hacking with out sputum production. She reports perioral numbness and pain within her mouth Exam Vital signs and Labs for Last 24 Hours: Temp Pulse Resp BP Pulse Ox 98.4 F 80 22 122/70 92 L 08/26/17 04:17 08/26/17 04:17 08/26/17 04:17 08/26/17 04:17 08/26/17 05:54 I & O for Last 24 hours: Intake & Output 08/23/17 08/24/17 08/25/17 08/26/17 11:59 11:59 11:59 11:59 Intake Total 903 / 903 1447 / 1447 Output Total 1100 / 1100 1100 / 1100 Balance -197 / -197 347 / 347 Weight 189 lb 7 oz 191 lb Microbiology Reports for the Last 24 Hours: Microbiology 08/25/17 10:45 Sputum - Expectorated Sputum Gram Stain - Final 08/25/17 10:45 Sputum - Expectorated Sputum Sputum Culture - Preliminary Radiology Reports for the Last 24 Hours: Chest x-ray performed on admission shows bilateral pulmonary nodules and moderate-sized pleural effusions Narrative: When initial conversation began patient seemed quite weak although the longer conversation went on she really seemed more herself and at baseline. Nasal cannula is in place. Oropharynx was significant for some patches of thrush. Lungs have wheezing with forced expiration only. Breath sounds are diminished at the bases. Heart has a regular rate and rhythm. Assessment and Plan (1) Hypercalcemia Current visit: Yes Status: Acute Category: Medical Code(s): E83.52 - Hypercalcemia (2) Bronchitis Current visit: Yes Status: Acute Category: Medical Code(s): J40 - Bronchitis, not specified as acute or chronic (3) RBBB (right bundle branch block with left anterior fascicular block) Current visit: Yes Status: Acute Category: Medical Code(s): I45.2 - Bifascicular block (4) Renal insufficiency Current visit: Yes Status: Acute Category: Medical Code(s): N28.9 - Disorder of kidney and ureter, unspecified (5) Non-Hodgkin lymphoma Current visit: Yes Status: Chronic Qualifiers: Non-Hodgkin lymphoma type: unspecified type Lymphoma site: unspecified region Qualified Code(s): C85.90 - Non-Hodgkin lymphoma, unspecified, unspecified site Category: Medical Code(s): C85.90 - Non-Hodgkin lymphoma, unspecified, unspecified site - Assessment and plan all Dx Assessment and Plan for all problems:: 1. Continue gentle IV fluids and monitor calcium for hypercalcemia 2. Add Xopenex nebs for wheezing. Patient will be given a dose of Solu-Medrol twice daily and reassess in the morning 3. Restart home medications 4. Chest x-ray suggests enlargement of her pulmonary nodules. Patient is under the care of local oncology for her non-Hodgkin's lymphoma. We will try to find out when her next appointment with him is that she is unsure 5. Bilateral moderate-sized pleural effusions are contributing to her dyspnea although I do not really think they are large enough to require thoracentesis at this point. Continue to monitor with serial chest x-rays
[2017-08-26 07:56] LABS: Basophils # 0.1 K/mm3 (0-0.2); Basophils % 0.5 % (0.1-2.0); Eosinophils # 0.4 K/mm3 (0.0-0.4); Eosinophils % 3.8 % (0.1-12.0); Hematocrit 40.1 % (37.0-47.0); Hemoglobin 13.9 g/dL (12.2-16.2); Lymphocytes # 1.6 K/mm3 (0.7-4.5); Lymphocytes % 14.4 K/mm3 (10-50); Mean Corpuscular HGB Conc 34.8 g/dL (31.8-35.4); Mean Corpuscular Hemoglobin 34.2 pg (27.0-31.2); Mean Corpuscular Volume 98.4 fl (81-99); Mean Platelet Volume 8.8 fl (7.4-10.4); Monocytes # 0.7 K/mm3 (0.1-1.0); Monocytes % 6.3 % (1.7-9.3); Neutrophils # 8.5 K/mm3 (1.8-7.8); Neutrophils % 75.1 % (37.0-80.0); Platelet Count 185 K/mm3 (142-424); Red Blood Count 4.08 M/mm3 (4.20-5.40); Red Cell Distribution Width 14.9 % (11.5-17.5); White Blood Count 11.3 K/mm3 (4.8-10.8)
[2017-08-26 08:04] LABS: Albumin Level 2.8 gm/dL (3.4-5.0); Albumin/Globulin Ratio 0.8 (1.1-1.8); Anion Gap 8.7 mEq/L (5-15); Bilirubin,Total 0.3 mg/dL (0.2-1.0); Calcium 10.8 mg/dL (8.5-10.1); Globulin 3.4 gm/dl (1.3-3.2); Potassium 3.7 mmoL/L (3.5-5.1); Total Protein,Serum 6.2 gm/dL (6.4-8.2)
[2017-08-27 07:20] LABS: Basophils % 0.3 % (0.1-2.0); Eosinophils % 0.3 % (0.1-12.0); Hematocrit 45.8 % (37.0-47.0); Hemoglobin 13.3 g/dL (12.2-16.2); Lymphocytes # 2.2 K/mm3 (0.7-4.5); Lymphocytes % 18.7 K/mm3 (10-50); Mean Corpuscular HGB Conc 29.1 g/dL (31.8-35.4); Mean Corpuscular Hemoglobin 29.7 pg (27.0-31.2); Mean Corpuscular Volume 101.7 fl (81-99); Mean Platelet Volume 9.1 fl (7.4-10.4); Monocytes # 0.6 K/mm3 (0.1-1.0); Monocytes % 4.8 % (1.7-9.3); Neutrophils # 8.9 K/mm3 (1.8-7.8); Neutrophils % 75.8 % (37.0-80.0); Platelet Count 244 K/mm3 (142-424); Red Cell Distribution Width 14.7 % (11.5-17.5); White Blood Count 11.7 K/mm3 (4.8-10.8)
--- NOTE | 2017-08-27 07:24 | Progress Note ---
Internal Medicine - PN: Subj *Date: 08/27/17 *Time: 07:21 Interval history: Patient reports the pain in her mouth is better since initiating nystatin therapy for thrush. She still feels extremely weak and short of breath. She claims it took 4 staff members to get her to the bathroom and back. Her cough is now productive of a greenish yen sputum Exam Vital signs and Labs for Last 24 Hours: Temp Pulse Resp BP Pulse Ox 97.7 F 75 18 162/83 90 L 08/27/17 04:00 08/27/17 04:00 08/27/17 04:00 08/27/17 04:00 08/27/17 04:00 Laboratory Results - last 24 hr 08/26/17 07:15: WBC 11.3 H, RBC 4.08 L, Hgb 13.9, Hct 40.1, MCV 98.4, MCH 34.2 H , MCHC 34.8, RDW 14.9, Plt Count 185, MPV 8.8, Neut % (Auto) 75.1, Lymph % (Auto ) 14.4, [place] % (Auto) 6.3, Eos % (Auto) 3.8, Baso % (Auto) 0.5, Neut # (Auto) 8.5 H, Lymph # (Auto) 1.6, [place] # (Auto) 0.7, Eos # (Auto) 0.4, Baso # (Auto) 0.1 08/26/17 07:15: Sodium 133 L, Potassium 3.7, Chloride 103, Carbon Dioxide 25, Anion Gap 8.7, BUN 28 H, Creatinine 1.36 H, Estimated Creat Clear 46, Estimated GFR 38 L, Est GFR ( Amer) 45 L D, Glucose 97, Calcium 10.8 H, Total Bilirubin 0.3, AST 41 H D, ALT 13, Alkaline Phosphatase 73, Total Protein 6.2 L , Albumin 2.8 L, Globulin 3.4 H, Albumin/Globulin Ratio 0.8 L I & O for Last 24 hours: Intake & Output 08/24/17 08/25/17 08/26/17 08/27/17 11:59 11:59 11:59 11:59 Intake Total 903 / 903 1807 / 1807 1017 / 1017 Output Total 1100 / 1100 1100 / 1100 1050 / 1050 Balance -197 / -197 707 / 707 -33 / -33 Weight 189 lb 7 oz 191 lb 195 lb 8 oz Microbiology Reports for the Last 24 Hours: Microbiology 08/25/17 10:45 Sputum - Expectorated Sputum Gram Stain - Final 08/25/17 10:45 Sputum - Expectorated Sputum Sputum Culture - Preliminary Narrative: Patient looks disheveled compared to yesterday. She does not show any increased work of breathing or respiratory distress. Lung exam reveals fair aeration with rhonchi at both lung bases posteriorly and expiratory wheezes posteriorly as well. Heart has a regular rate and rhythm. Assessment and Plan (1) Bilateral pneumonia Current visit: Yes Status: Acute Category: Medical Code(s): J18.9 - Pneumonia, unspecified organism (2) Hypercalcemia Current visit: Yes Status: Acute Category: Medical Code(s): E83.52 - Hypercalcemia (3) Bronchitis Current visit: Yes Status: Acute Category: Medical Code(s): J40 - Bronchitis, not specified as acute or chronic (4) RBBB (right bundle branch block with left anterior fascicular block) Current visit: Yes Status: Acute Category: Medical Code(s): I45.2 - Bifascicular block (5) Renal insufficiency Current visit: Yes Status: Acute Category: Medical Code(s): N28.9 - Disorder of kidney and ureter, unspecified (6) Non-Hodgkin lymphoma Current visit: Yes Status: Chronic Qualifiers: Non-Hodgkin lymphoma type: unspecified type Lymphoma site: unspecified region Qualified Code(s): C85.90 - Non-Hodgkin lymphoma, unspecified, unspecified site Category: Medical Code(s): C85.90 - Non-Hodgkin lymphoma, unspecified, unspecified site - Assessment and plan all Dx Assessment and Plan for all problems:: 1. Continue antibiotics for bilateral pneumonia. 2. Await calcium level this morning 3. I discussed with the patient the new nodular opacities on CT scan consistent with spread of her lymphoma. I am going to place a consult to Dr. Lau as he is familiar with the patient to see if there is any additional testing that he would suggest. She is also going to need to have follow-up soon with Dr. Mcintyre to discuss continuing chemotherapy.
[2017-08-27 07:34] LABS: Albumin Level 3.1 gm/dL (3.4-5.0); Albumin/Globulin Ratio 0.8 (1.1-1.8); Anion Gap 16.1 mEq/L (5-15); Bilirubin,Total 0.2 mg/dL (0.2-1.0); Calcium 11.3 mg/dL (8.5-10.1); Globulin 3.7 gm/dl (1.3-3.2); Potassium 5.1 mmoL/L (3.5-5.1); Total Protein,Serum 6.8 gm/dL (6.4-8.2)
--- NOTE | 2017-08-28 07:06 | Progress Note ---
Internal Medicine - PN: Subj *Date: 08/28/17 *Time: 07:03 Interval history: Patient reports having a lot of back pain this morning as well as continued weakness and shortness of breath. She received a Xanax early this a.m. because of anxiety associated with what she believed was poor quality sleep. Nursing staff reports that patient has been sleeping for long periods throughout the night but patient claims she is only been sleeping for 10-15 minute intervals before awakening. Her cough remains productive of a greenish yen sputum. Exam Vital signs and Labs for Last 24 Hours: Temp Pulse Resp BP Pulse Ox 97.6 F 84 22 148/74 97 08/28/17 04:00 08/28/17 06:13 08/28/17 05:05 08/28/17 04:00 08/28/17 06:13 Laboratory Results - last 24 hr 08/27/17 06:45: WBC 11.7 H, RBC 4.50, Hgb 13.3, Hct 45.8, MCV 101.7 H, MCH 29.7 , MCHC 29.1 L, RDW 14.7, Plt Count 244 D, MPV 9.1, Neut % (Auto) 75.8, Lymph % (Auto) 18.7, [place] % (Auto) 4.8, Eos % (Auto) 0.3, Baso % (Auto) 0.3, Neut # ( Auto) 8.9 H, Lymph # (Auto) 2.2, [place] # (Auto) 0.6, Eos # (Auto) 0.0, Baso # ( Auto) 0.0 08/27/17 06:45: Sodium 142, Potassium 5.1 D, Chloride 104, Carbon Dioxide 27, Anion Gap 16.1 H, BUN 30 H, Creatinine 1.18 H, Estimated Creat Clear 54, Estimated GFR 44 L, Est GFR ( Amer) 53 L, Glucose 111 H, Calcium 11.3 H, Total Bilirubin 0.2, AST 52 H D, ALT 17 D, Alkaline Phosphatase 84, Total Protein 6.8, Albumin 3.1 L D, Globulin 3.7 H, Albumin/Globulin Ratio 0.8 L I & O for Last 24 hours: Intake & Output 08/25/17 08/26/17 08/27/17 08/28/17 11:59 11:59 11:59 11:59 Intake Total 903 / 903 1807 / 1807 1017 / 1017 2440 / 2440 Output Total 1100 / 1100 1100 / 1100 1050 / 1050 1700 / 1700 Balance -197 / -197 707 / 707 -33 / -33 740 / 740 Weight 189 lb 7 oz 191 lb 195 lb 8 oz 196 lb 6 oz Microbiology Reports for the Last 24 Hours: Microbiology 08/25/17 10:45 Sputum - Expectorated Sputum Gram Stain - Final 08/25/17 10:45 Sputum - Expectorated Sputum Sputum Culture - Preliminary Narrative: Patient seems a lot more drowsy this morning that she has at any point during this hospitalization. She also seems to be having a little bit more difficulty breathing. Patient is talking in between breaths. Lung examination reveals diminished breath sounds at the bases with a faint end expiratory wheeze heard posteriorly. Heart has a regular rate and rhythm Assessment and Plan (1) Bilateral pneumonia Current visit: Yes Status: Acute Category: Medical Code(s): J18.9 - Pneumonia, unspecified organism (2) Hypercalcemia Current visit: Yes Status: Acute Category: Medical Code(s): E83.52 - Hypercalcemia (3) Bronchitis Current visit: Yes Status: Acute Category: Medical Code(s): J40 - Bronchitis, not specified as acute or chronic (4) RBBB (right bundle branch block with left anterior fascicular block) Current visit: Yes Status: Acute Category: Medical Code(s): I45.2 - Bifascicular block (5) Renal insufficiency Current visit: Yes Status: Acute Category: Medical Code(s): N28.9 - Disorder of kidney and ureter, unspecified (6) Non-Hodgkin lymphoma Current visit: Yes Status: Chronic Qualifiers: Non-Hodgkin lymphoma type: unspecified type Lymphoma site: unspecified region Qualified Code(s): C85.90 - Non-Hodgkin lymphoma, unspecified, unspecified site Category: Medical Code(s): C85.90 - Non-Hodgkin lymphoma, unspecified, unspecified site - Assessment and plan all Dx Assessment and Plan for all problems:: 1. Repeat chest x-ray today due to apparent increase in shortness of breath. Fluids have been discontinued. Pulmonology consult today. 2. Patient feels pretty weak and therefore I will consult PT to see if she is going to be safe to return home or may need longterm for strengthening
--- NOTE | 2017-08-28 09:33 | Progress Note ---
Internal Medicine - PN: Subj *Date: 08/28/17 *Time: 09:33 Exam Vital signs and Labs for Last 24 Hours: Temp Pulse Resp BP Pulse Ox 98.2 F 91 H 20 138/89 94 L 08/28/17 07:46 08/28/17 07:46 08/28/17 07:46 08/28/17 07:46 08/28/17 07:46 I & O for Last 24 hours: Intake & Output 08/25/17 08/26/17 08/27/17 08/28/17 23:59 23:59 23:59 23:59 Intake Total 1503 / 1503 1327 / 1327 2436 / 2436 901 / 901 Output Total 1900 / 1900 600 / 600 2250 / 2250 200 / 200 Balance -397 / -397 727 / 727 186 / 186 701 / 701 Weight 85.927 kg 86.636 kg 88.677 kg 89.074 kg Microbiology Reports for the Last 24 Hours: Microbiology 08/25/17 10:45 Sputum - Expectorated Sputum Gram Stain - Final 08/25/17 10:45 Sputum - Expectorated Sputum Sputum Culture - Final Normal Respiratory Lindsey Assessment and Plan (1) Bilateral pneumonia Current visit: Yes Status: Acute Category: Medical Code(s): J18.9 - Pneumonia, unspecified organism (2) Hypercalcemia Current visit: Yes Status: Acute Category: Medical Code(s): E83.52 - Hypercalcemia (3) Bronchitis Current visit: Yes Status: Acute Category: Medical Code(s): J40 - Bronchitis, not specified as acute or chronic (4) RBBB (right bundle branch block with left anterior fascicular block) Current visit: Yes Status: Acute Category: Medical Code(s): I45.2 - Bifascicular block (5) Renal insufficiency Current visit: Yes Status: Acute Category: Medical Code(s): N28.9 - Disorder of kidney and ureter, unspecified (6) Non-Hodgkin lymphoma Current visit: Yes Status: Chronic Qualifiers: Non-Hodgkin lymphoma type: unspecified type Lymphoma site: unspecified region Qualified Code(s): C85.90 - Non-Hodgkin lymphoma, unspecified, unspecified site Category: Medical Code(s): C85.90 - Non-Hodgkin lymphoma, unspecified, unspecified site The patient's infection will respond to the chosen ABx?: Yes Is the patient receiving the right drug, dose, and route?: Yes Could a more targeted ABx be ordered?: No
[2017-08-28 17:21] LABS: Basophils # 0.1 K/mm3 (0-0.2); Basophils % 0.7 % (0.1-2.0); Eosinophils # 0.3 K/mm3 (0.0-0.4); Eosinophils % 2.6 % (0.1-12.0); Hematocrit 46.3 % (37.0-47.0); Hemoglobin 14.3 g/dL (12.2-16.2); Lymphocytes # 2.4 K/mm3 (0.7-4.5); Lymphocytes % 20.2 K/mm3 (10-50); Mean Corpuscular HGB Conc 30.9 g/dL (31.8-35.4); Mean Corpuscular Volume 97.3 fl (81-99); Mean Platelet Volume 8.3 fl (7.4-10.4); Monocytes # 0.6 K/mm3 (0.1-1.0); Monocytes % 4.6 % (1.7-9.3); Neutrophils # 8.5 K/mm3 (1.8-7.8); Neutrophils % 71.9 % (37.0-80.0); Platelet Count 212 K/mm3 (142-424); Red Blood Count 4.75 M/mm3 (4.20-5.40); Red Cell Distribution Width 14.9 % (11.5-17.5); White Blood Count 11.9 K/mm3 (4.8-10.8)
[2017-08-28 22:17] LABS: Microscopic, Urine URINE MICROSCOPIC (MICROSCOPIC)
[2017-08-28 22:19] LABS: Appearance,Urine SL CLOUDY (Clear); Bilirubin,Urine Negative (Negative); Blood, Urine TRACE-L (Negative); Color,Urine YELLOW (Yellow); Glucose,Urine (UA) Negative (Negative); Ketones,Urine Negative (Negative); Leukocyte Esterase,Urine Negative (Negative); PH,Urine 5.5 (5.0-8.5); Protein,Urine 2+ (Negative); Specific Gravity, Urine >= 1.030 (1.005-1.030); Urobilinogen,Urine 0.2 EU/dl (0.2)
[2017-08-28 22:35] LABS: Basophils # 0.3 K/mm3 (0-0.2); Basophils % 1.1 % (0.1-2.0); Eosinophils # 0.4 K/mm3 (0.0-0.4); Eosinophils % 1.7 % (0.1-12.0); Hematocrit 47.1 % (37.0-47.0); Hemoglobin 13.7 g/dL (12.2-16.2); Lymphocytes # 7.5 K/mm3 (0.7-4.5); Lymphocytes % 30.6 K/mm3 (10-50); Mean Corpuscular HGB Conc 29.1 g/dL (31.8-35.4); Mean Corpuscular Hemoglobin 29.6 pg (27.0-31.2); Mean Corpuscular Volume 101.7 fl (81-99); Mean Platelet Volume 10.1 fl (7.4-10.4); Monocytes # 1.6 K/mm3 (0.1-1.0); Monocytes % 6.5 % (1.7-9.3); Neutrophils # 14.7 K/mm3 (1.8-7.8); Platelet Count 222 K/mm3 (142-424); Red Blood Count 4.63 M/mm3 (4.20-5.40); Red Cell Distribution Width 14.8 % (11.5-17.5); White Blood Count 24.4 K/mm3 (4.8-10.8)
[2017-08-28 22:42] LABS: Anion Gap 14.9 mEq/L (5-15); Potassium 4.9 mmoL/L (3.5-5.1)
[2017-08-28 22:46] LABS: Amorphous Sediment,Urine 2+ /lpf; Bacteria,Urine 1+ /lpf
[2017-08-28 23:32] LABS: Anisocytosis 1+; Eosinophils % 1 % (0-3); Lymphocytes % 36 % (10-50); Monocytes % 5 % (2-9); Neutrophils % 58 % (42-76); Total Cells Counted 100
[2017-08-28 23:33] LABS: Hypochromasia 1+
[2017-08-29 00:25] LABS: ABG Base Excess -4.2 mmol/L (-2.4-2.3); ABG Oxygen Saturation 96 % (90-100); ABG PO2 96.7 mmhg (80-100)
[2017-08-29 00:27] LABS: Allen's Test Patient Unable; Oxygen 60% %
[2017-08-29 00:29] LABS: ABG PCO2 64.2 mmhg (35.0-45.0); ABG PH 7.19 mmol/L (7.35-7.45)
[2017-08-29 05:55] LABS: Albumin Level 2.8 gm/dL (3.4-5.0); Albumin/Globulin Ratio 0.9 (1.1-1.8); Anion Gap 10.8 mEq/L (5-15); Bilirubin,Total 0.3 mg/dL (0.2-1.0); Calcium 10.7 mg/dL (8.5-10.1); Potassium 4.8 mmoL/L (3.5-5.1); Total Protein,Serum 5.8 gm/dL (6.4-8.2)
--- NOTE | 2017-08-29 06:09 | Progress Note ---
Acute Rapid Response Note - Subjective Date Responded: 08/28/17 Time Responded: 22:10 - Objective Findings: Vital Signs - Last 4 Hours Temperature 96.5 F L 08/29/17 04:00 Temperature Source Axillary 08/29/17 04:00 Pulse Rate 83 08/29/17 06:01 Respiratory Rate 23 08/29/17 04:00 Blood Pressure 152/84 08/29/17 04:00 Blood Pressure Mean 106 08/29/17 04:00 Blood Pressure Source Automatic Cuff 08/29/17 04:00 Blood Pressure Position Sitting 08/29/17 04:00 02 Sat by Pulse Oximetry 94 L 08/29/17 04:00 Oxygen Delivery Method 08/29/17 05:00 Oxygen Flow Rate (LPM) 15 08/29/17 05:00 Lab Results for Past 12 Hours 08/29/17 05:30: Sodium 141, Potassium 4.8, Chloride 105, Carbon Dioxide 30, Anion Gap 10.8, BUN 30 H, Creatinine 1.12 H, Estimated Creat Clear 58, Estimated GFR 47 L, Est GFR ( Amer) 57 L, Glucose 91 D, Calcium 10.7 H, Total Bilirubin 0.3, AST 56 H, ALT 20, Alkaline Phosphatase 79, Total Protein 5.8 L, Albumin 2.8 L, Globulin 3.0, Albumin/Globulin Ratio 0.9 L 08/29/17 00:20: Specimen Source Left radial, O2 % 60%, ABG pH 7.19 L*, ABG pCO2 64.2 H, ABG pO2 96.7, ABG HCO3 24.0, ABG Total CO2 26.0, ABG O2 Saturation 96, ABG Base Excess -4.2 L, Ralph Test Patient unable 08/28/17 22:10: Sodium 139, Potassium 4.9, Chloride 104, Carbon Dioxide 25, Anion Gap 14.9, BUN 33 H, Creatinine 1.20 H, Estimated Creat Clear 53, Estimated GFR 43 L, Est GFR ( Amer) 52 L, Glucose 165 H, Troponin I 0.05 08/28/17 22:00: Urine Color Yellow, Urine Appearance Sl cloudy, Urine pH 5.5, Ur Specific [place] >= 1.030, Urine Protein 2+, Urine Glucose (UA) Negative, Urine Ketones Negative, Urine Blood Trace-l, Urine Nitrate Negative, Urine Bilirubin Negative, Urine Urobilinogen 0.2, Ur Leukocyte Esterase Negative, Urine RBC None, Urine WBC 3-5, Ur Squamous Epith Cells 3-5, Amorphous Sediment 2 +, Urine Bacteria 1+, Hyaline Casts 5-10 08/28/17 22:00: WBC 24.4 H* D, RBC 4.63, Hgb 13.7, Hct 47.1 H, MCV 101.7 H, MCH 29.6, MCHC 29.1 L, RDW 14.8, Plt Count 222, MPV 10.1, Neut % (Auto) 60.0, Lymph % (Auto) 30.6, [place] % (Auto) 6.5, Eos % (Auto) 1.7, Baso % (Auto) 1.1, Neut # ( Auto) 14.7 H, Lymph # (Auto) 7.5 H, [place] # (Auto) 1.6 H, Eos # (Auto) 0.4, Baso # (Auto) 0.3 H, Total Counted 100, Neutrophils % (Manual) 58, Lymphocytes % ( Manual) 36, Monocytes % (Manual) 5, Eosinophils % (Manual) 1, Platelet Estimate Normal, Hypochromasia 1+, Anisocytosis 1+ My Orders 3 Category Date Time Status Urinary Catheter, Insert ONCE Care 08/28/17 22:06 Active XR chest portable Stat Exams 08/28/17 22:06 Taken Basic Metabolic Panel Stat Lab 08/28/17 22:10 Completed Complete Blood Count Auto Diff Stat Lab 08/28/17 22:00 Completed Troponin I Stat Lab 08/28/17 22:10 Completed Urinalysis and Microscopic Stat Lab 08/28/17 22:00 Completed LORazepam [Ativan 2mg/mL vial] Med 08/28/17 23:00 Discontinued 1 mg IV ONCE ONE LORazepam [Ativan 2mg/mL vial] Med 08/29/17 05:30 Discontinued 1 mg IV ONCE ONE Arterial Blood Gas Stat RT 08/28/17 22:06 Ordered BIPAP NEEDED RT 08/28/17 22:06 Active - Radiology Findings #1 Xray Reviewed: Chest Image Reviewed: Yes I reviewed the patient's radiology image ED XR Results: Abnormal (no gross changes ) Rapid Response Exam - General General appearance: in distress - Head Head exam: atraumatic - Eye Eye exam: Present: PERRL, EOMI. Absent: scleral icterus - ENT ENT exam: Present: mucous membranes dry - Neck Neck exam: Absent: trachea midline - Respiratory Respiratory exam: Present: respiratory distress, other (dec bs bilat ) - Cardiovascular Cardiovascular exam: Present: regular rate - Abdominal Exam Abdominal exam: Present: soft - Extremities Exam Extremities exam: Present: pedal edema - Neurological Exam Neurological exam: Present: other (obtunded with no posturing or sz ) - Psychiatric Psychiatric exam: Present: anxious - Skin Skin exam: Absent: rash RR Procedures/Assess/Plan (1) Respiratory failure Current Visit: Yes Status: Acute Qualifiers: Respiratory failure complication: hypoxia and hypercapnia Assessment and Plan: will try bpap at this time
--- NOTE | 2017-08-29 06:45 | Progress Note ---
Internal Medicine - PN: Subj *Date: 08/29/17 *Time: 06:50 Interval history: Between 9 and 10 PM last night a rapid response was called on the patient when she was found to be confused with depressed level of consciousness and increased difficulty breathing. Workup revealed a respiratory acidosis had developed from hypercapnia. Patient was started on BiPAP. Nursing staff reports for the first 6 hours the patient was wearing BiPAP she did well and was cooperative and tolerant of the BiPAP. She did receive Ativan to help calm any agitation. Around 5 AM this morning the patient beginning more active and made repeated attempts to remove the BiPAP. A follow-up ABG performed an hour after BiPAP was initiated showed improvement in her respiratory acidosis. Additional labs revealed white blood cell count had significantly increased to 24,000. Currently patient is resting in bed. She does open her eyes when I call her name but does not respond any questions. This may be partially contributed to by the patient's poor hearing and the noise that her BiPAP is creating Exam Vital signs and Labs for Last 24 Hours: Temp Pulse Resp BP Pulse Ox 96.5 F L 83 23 152/84 94 L 08/29/17 04:00 08/29/17 06:01 08/29/17 04:00 08/29/17 04:00 08/29/17 04:00 Laboratory Results - last 24 hr 08/28/17 17:15: WBC 11.9 H, RBC 4.75, Hgb 14.3, Hct 46.3, MCV 97.3, MCH 30.0, MCHC 30.9 L, RDW 14.9, Plt Count 212, MPV 8.3, Neut % (Auto) 71.9, Lymph % (Auto ) 20.2, [place] % (Auto) 4.6, Eos % (Auto) 2.6, Baso % (Auto) 0.7, Neut # (Auto) 8.5 H, Lymph # (Auto) 2.4, [place] # (Auto) 0.6, Eos # (Auto) 0.3, Baso # (Auto) 0.1 08/28/17 22:00: WBC 24.4 H* D, RBC 4.63, Hgb 13.7, Hct 47.1 H, MCV 101.7 H, MCH 29.6, MCHC 29.1 L, RDW 14.8, Plt Count 222, MPV 10.1, Neut % (Auto) 60.0, Lymph % (Auto) 30.6, [place] % (Auto) 6.5, Eos % (Auto) 1.7, Baso % (Auto) 1.1, Neut # ( Auto) 14.7 H, Lymph # (Auto) 7.5 H, [place] # (Auto) 1.6 H, Eos # (Auto) 0.4, Baso # (Auto) 0.3 H, Total Counted 100, Neutrophils % (Manual) 58, Lymphocytes % ( Manual) 36, Monocytes % (Manual) 5, Eosinophils % (Manual) 1, Platelet Estimate Normal, Hypochromasia 1+, Anisocytosis 1+ 08/28/17 22:00: Urine Color Yellow, Urine Appearance Sl cloudy, Urine pH 5.5, Ur Specific [place] >= 1.030, Urine Protein 2+, Urine Glucose (UA) Negative, Urine Ketones Negative, Urine Blood Trace-l, Urine Nitrate Negative, Urine Bilirubin Negative, Urine Urobilinogen 0.2, Ur Leukocyte Esterase Negative, Urine RBC None, Urine WBC 3-5, Ur Squamous Epith Cells 3-5, Amorphous Sediment 2 +, Urine Bacteria 1+, Hyaline Casts 5-10 08/28/17 22:10: Sodium 139, Potassium 4.9, Chloride 104, Carbon Dioxide 25, Anion Gap 14.9, BUN 33 H, Creatinine 1.20 H, Estimated Creat Clear 53, Estimated GFR 43 L, Est GFR ( Amer) 52 L, Glucose 165 H, Troponin I 0.05 08/29/17 00:20: Specimen Source Left radial, O2 % 60%, ABG pH 7.19 L*, ABG pCO2 64.2 H, ABG pO2 96.7, ABG HCO3 24.0, ABG Total CO2 26.0, ABG O2 Saturation 96, ABG Base Excess -4.2 L, Ralph Test Patient unable 08/29/17 05:30: Sodium 141, Potassium 4.8, Chloride 105, Carbon Dioxide 30, Anion Gap 10.8, BUN 30 H, Creatinine 1.12 H, Estimated Creat Clear 58, Estimated GFR 47 L, Est GFR ( Amer) 57 L, Glucose 91 D, Calcium 10.7 H, Total Bilirubin 0.3, AST 56 H, ALT 20, Alkaline Phosphatase 79, Total Protein 5.8 L, Albumin 2.8 L, Globulin 3.0, Albumin/Globulin Ratio 0.9 L I & O for Last 24 hours: Intake & Output 08/26/17 08/27/17 08/28/17 08/29/17 11:59 11:59 11:59 11:59 Intake Total 1807 / 1807 1017 / 1017 2440 / 2440 1860 / 1860 Output Total 1100 / 1100 1050 / 1050 1700 / 1700 625 / 625 Balance 707 / 707 -33 / -33 740 / 740 1235 / 1235 Weight 191 lb 195 lb 8 oz 196 lb 6 oz 198 lb 2 oz Microbiology Reports for the Last 24 Hours: Microbiology 08/25/17 10:45 Sputum - Expectorated Sputum Gram Stain - Final 08/25/17 10:45 Sputum - Expectorated Sputum Sputum Culture - Final Normal Respiratory Lindsey Narrative: Patient is laying on her right side with BiPAP in place. When I loudly call her name she will open her eyes and look at me. She does not voice any response to questions. Lung exam sounds significantly better than yesterday with good aeration. Heart has a regular rate and rhythm. Extremities are without edema. Miller catheter is in place. Patient does move all extremities. Assessment and Plan (1) Respiratory failure Current visit: Yes Status: Acute Qualifiers: Respiratory failure complication: hypoxia and hypercapnia Qualified Code(s) : J96.01 - Acute respiratory failure with hypoxia; J96.02 - Acute respiratory failure with hypercapnia Category: Medical Code(s): J96.90 - Respiratory failure, unspecified, unspecified whether with hypoxia or hypercapnia (2) COPD with exacerbation Current visit: Yes Status: Acute Category: Medical Code(s): J44.1 - Chronic obstructive pulmonary disease with (acute) exacerbation (3) Bilateral pleural effusion Current visit: Yes Status: Acute Category: Medical Code(s): J90 - Pleural effusion, not elsewhere classified (4) Bilateral pneumonia Current visit: Yes Status: Acute Category: Medical Code(s): J18.9 - Pneumonia, unspecified organism (5) Hypercalcemia Current visit: Yes Status: Acute Category: Medical Code(s): E83.52 - Hypercalcemia (6) Non-Hodgkin lymphoma Current visit: Yes Status: Chronic Qualifiers: Non-Hodgkin lymphoma type: unspecified type Lymphoma site: unspecified region Qualified Code(s): C85.90 - Non-Hodgkin lymphoma, unspecified, unspecified site Category: Medical Code(s): C85.90 - Non-Hodgkin lymphoma, unspecified, unspecified site (7) Hypertension Current visit: No Status: Chronic Qualifiers: Hypertension type: essential hypertension Qualified Code(s): I10 - Essential (primary) hypertension Category: Medical Code(s): I10 - Essential (primary) hypertension - Assessment and plan all Dx Assessment and Plan for all problems:: Initial plan for the day had been to repeat CT scan of the chest and request ultrasound guided thoracentesis from radiology due to patient's bilateral pleural effusions which I believe were affecting her ability to get quality breaths. Now that she is on BiPAP this will be delayed. She will be started on Solu-Medrol given a dose of 125 mg intravenously this morning followed by 60 mg every 8 hours. Patient was receiving Xopenex nebs and I will add ipratropium to her neb regimen. Repeat ABG this morning. Continue BiPAP until patient becomes more alert. Hold all benzos and oral narcotics to avoid depression of respiratory drive. White blood cell count had increased significantly and this was likely due to acidosis but she will be started on broader spectrum antibiotic coverage with addition of both Levaquin and vancomycin to her Rocephin. Azithromycin will be discontinued. Dr. Lau was unavailable yesterday but remotely ordered fungal antibody testing. This has been drawn and I will add on IV fluconazole to the patient's regimen.
[2017-08-29 07:24] LABS: ABG Base Excess -8.3 mmol/L (-2.4-2.3); ABG Oxygen Saturation 74 % (90-100)
--- NOTE | 2017-08-29 09:19 | Pharmacy Consult Notes ---
- Pharmacy Consult Date: 08/29/17 Time: :18 Referring provider: DR. BARBOZA Reason for Consult:: VANCOMYCIN DOSING Allergies and ADEs:: Allergies Allergy/AdvReac Type Severity Reaction Status Date / Time buspirone [From BuSpar] Allergy Severe SUICIDAL Verified 08/01/17 10:49 IDEATION prednisone Allergy Severe INTERNAL Verified 08/01/17 10:49 ORGANOMEGALY propoxyphene Allergy Severe RESPIRATORY Verified 08/01/17 10:49 [From Darvocet-N] DEPRESSION tramadol Allergy Severe SEVERE Verified 08/01/17 10:49 WITHDRAWAL adhesive Allergy Intermediate I-RASH Verified 08/01/17 10:49 bupropion [From Wellbutrin] Allergy Intermediate DEPRESSION Verified 08/24/17 20 :14 codeine Allergy Intermediate LEG PAIN, Verified 08/24/17 20:14 STOMACH CRMPS cyclobenzaprine Allergy Intermediate MUSCLE Verified 08/24/17 20:14 [From Flexeril] SPASMS diclofenac [From Voltaren] Allergy Intermediate I-HIVES Verified 08/24/17 20:14 escitalopram [From Lexapro] Allergy Intermediate IRREGULAR Verified 08/24/17 20: 14 HEART RATE, NUMBNESS,TINGLING gabapentin [From Neurontin] Allergy Intermediate I-ITCHING, Verified 08/24/17 20 :14 SLURRED SPEECH, HEAD PAIN influenza virus vaccine, Allergy Intermediate I-RASH Verified 08/24/17 20:14 specific [influenza virus vacc,specific] meloxicam [From Mobic] Allergy Intermediate SORES, Verified 08/24/17 20:14 ACNE, DIARRHEA naproxen [From Naprosyn] Allergy Intermediate STOMACH Verified 08/24/17 20:14 PAIN, CRAMPS Penicillins Allergy Intermediate I-HIVES Verified 08/24/17 20:14 promethazine [From Phenergan] Allergy Intermediate LOSS OF Verified 08/24/17 20: 14 SPEECH, MUSCLE CONTRACTIONS, NAUSEA rosuvastatin [From Crestor] Allergy Intermediate NECK, LEG, Verified 08/24/17 20 :14 AND JOINT PAIN; NUMBNESS simvastatin [From Vytorin] Allergy Intermediate TINGLING Verified 08/24/17 20:14 IN FEET & ANKLES; NUMBNESS tetanus and diphtheria Allergy Intermediate I-RASH, Verified 08/24/17 20:14 toxoids SWELLING, [tetanus & diphtheria PAIN toxoids] venlafaxine [From Effexor] Allergy Intermediate DISORIENTED Verified 08/24/17 20 :14 venom-honey bee Allergy Intermediate SWELLING Verified 08/24/17 20:14 [bee venom (honey bee)] paroxetine [From Paxil] Allergy Mild DRY MOUTH, Verified 08/24/17 20:14 UNCONTROLLED HICCUPS sertraline [From Zoloft] Allergy Mild UNCONTROLLED Verified 08/24/17 20:14 HICCUPS duloxetine [From Cymbalta] Allergy Unknown Verified 08/24/17 20:14 ezetimibe [From Zetia] Allergy Unknown Verified 08/24/17 20:14 honey Allergy Unknown Verified 08/24/17 20:14 celecoxib [From Celebrex] AdvReac Mild HEADACHE Verified 08/24/17 20:14 diazepam [From Valium] AdvReac Mild HYPERACTIVE Verified 08/24/17 20:14 morphine AdvReac Mild NA-NAUSEA/VOMITING; Verified 08/24/17 20:14 DISORIENTATION ULTRAVIOLET LIGHT Allergy Unknown Uncoded 08/01/17 10:49 CAT GUT SUTURES AdvReac Unknown Uncoded 08/01/17 10:49 contrave AdvReac Uncoded 08/01/17 10:49 Home Medications:: Home Medications Medication Instructions Recorded Confirmed Type Hydrocodone/Acetaminophen 1 each PO QIDP PRN 04/02/17 08/25/17 History [Hydrocodone-Acetamin 10-325 mg] budesonide-formoterol HFA 160 2 puff INHALATION Q12H 04/12/17 08/25/17 History mcg-4.5 mcg/actuation aerosol inhaler Levothyroxine Sodium 125 mcg PO DAILY 04/16/17 08/25/17 History [Levothyroxine 125mcg (0.125mg) Tab] furosemide 20 mg tablet 20 mg PO DAILY PRN 06/21/17 08/25/17 History Apixaban [Eliquis] 5 mg PO BID 08/01/17 08/25/17 History Aspirin [Aspirin 325mg Tab] 325 mg PO DAILY 08/01/17 08/25/17 History Ergocalciferol (Vitamin D2) 400 unit PO DAILY 08/01/17 08/25/17 History [Vitamin D] Krill Oil 1,000 mg PO DAILY 08/01/17 08/25/17 History Loratadine [Claritin 10mg Tablet] 10 mg PO DAILY 08/01/17 08/25/17 History Vitamin A 8,000 unit PO DAILY 08/01/17 08/25/17 History Metoprolol Tartrate [Lopressor 25 mg PO BID 08/24/17 08/25/17 History 25mg tablet] ALPRAZolam [Xanax 0.5mg tab] 0.5 mg PO DAILY 08/25/17 08/25/17 History Height: 1.7 m Weight: 89.868 kg Laboratory Results:: Laboratory Results - last 24 hr 08/28/17 17:15: WBC 11.9 H, RBC 4.75, Hgb 14.3, Hct 46.3, MCV 97.3, MCH 30.0, MCHC 30.9 L, RDW 14.9, Plt Count 212, MPV 8.3, Neut % (Auto) 71.9, Lymph % (Auto ) 20.2, [place] % (Auto) 4.6, Eos % (Auto) 2.6, Baso % (Auto) 0.7, Neut # (Auto) 8.5 H, Lymph # (Auto) 2.4, [place] # (Auto) 0.6, Eos # (Auto) 0.3, Baso # (Auto) 0.1 08/28/17 22:00: WBC 24.4 H* D, RBC 4.63, Hgb 13.7, Hct 47.1 H, MCV 101.7 H, MCH 29.6, MCHC 29.1 L, RDW 14.8, Plt Count 222, MPV 10.1, Neut % (Auto) 60.0, Lymph % (Auto) 30.6, [place] % (Auto) 6.5, Eos % (Auto) 1.7, Baso % (Auto) 1.1, Neut # ( Auto) 14.7 H, Lymph # (Auto) 7.5 H, [place] # (Auto) 1.6 H, Eos # (Auto) 0.4, Baso # (Auto) 0.3 H, Total Counted 100, Neutrophils % (Manual) 58, Lymphocytes % ( Manual) 36, Monocytes % (Manual) 5, Eosinophils % (Manual) 1, Platelet Estimate Normal, Hypochromasia 1+, Anisocytosis 1+ 08/28/17 22:00: Urine Color Yellow, Urine Appearance Sl cloudy, Urine pH 5.5, Ur Specific [place] >= 1.030, Urine Protein 2+, Urine Glucose (UA) Negative, Urine Ketones Negative, Urine Blood Trace-l, Urine Nitrate Negative, Urine Bilirubin Negative, Urine Urobilinogen 0.2, Ur Leukocyte Esterase Negative, Urine RBC None, Urine WBC 3-5, Ur Squamous Epith Cells 3-5, Amorphous Sediment 2 +, Urine Bacteria 1+, Hyaline Casts 5-10 08/28/17 22:06: ABG pH 7.00 L*, ABG pCO2 96.0 H, ABG pO2 55.0 L, ABG HCO3 23.0, ABG Total CO2 26.0, ABG O2 Saturation 74 L*, ABG Base Excess -8.3 L 08/28/17 22:10: Sodium 139, Potassium 4.9, Chloride 104, Carbon Dioxide 25, Anion Gap 14.9, BUN 33 H, Creatinine 1.20 H, Estimated Creat Clear 53, Estimated GFR 43 L, Est GFR ( Amer) 52 L, Glucose 165 H, Troponin I 0.05 08/29/17 00:20: Specimen Source Left radial, O2 % 60%, ABG pH 7.19 L*, ABG pCO2 64.2 H, ABG pO2 96.7, ABG HCO3 24.0, ABG Total CO2 26.0, ABG O2 Saturation 96, ABG Base Excess -4.2 L, Ralph Test Patient unable 08/29/17 05:30: Sodium 141, Potassium 4.8, Chloride 105, Carbon Dioxide 30, Anion Gap 10.8, BUN 30 H, Creatinine 1.12 H, Estimated Creat Clear 58, Estimated GFR 47 L, Est GFR ( Amer) 57 L, Glucose 91 D, Calcium 10.7 H, Total Bilirubin 0.3, AST 56 H, ALT 20, Alkaline Phosphatase 79, Total Protein 5.8 L, Albumin 2.8 L, Globulin 3.0, Albumin/Globulin Ratio 0.9 L 08/29/17 06:39: Specimen Source Cancelled, O2 % Cancelled, ABG pH Cancelled, ABG pCO2 Cancelled, ABG pO2 Cancelled, ABG HCO3 Cancelled, ABG Total CO2 Cancelled, ABG O2 Saturation Cancelled, ABG Base Excess Cancelled, Ralph Test Cancelled, Vent Rate Cancelled, Tidal Volume Cancelled, PEEP Cancelled Medical History: Reports:: Anxiety, Arrhythmia, Atrial Fibrillation, Cancer (non ,hodgekins lymphoma), Congestive Heart Failure, Coronary Artery Disease, Cerebrovascular Accident, Deep Vein Thrombosis, Gastroesophageal Reflux Disease( GERD), Hypertension, Myocardial Infarction, Osteoporosis, Peripheral Artery Disease, Peripheral Vascular Disease Denies:: Diabetes Mellitus Type 1, Diabetes Mellitus Type 2, MRSA, Seizures Assessment and Plan (1) Respiratory failure Current visit: Yes Status: Acute Qualifiers: Respiratory failure complication: hypoxia and hypercapnia Qualified Code(s) : J96.01 - Acute respiratory failure with hypoxia; J96.02 - Acute respiratory failure with hypercapnia Category: Medical Code(s): J96.90 - Respiratory failure, unspecified, unspecified whether with hypoxia or hypercapnia (2) COPD with exacerbation Current visit: Yes Status: Acute Category: Medical Code(s): J44.1 - Chronic obstructive pulmonary disease with (acute) exacerbation (3) Bilateral pleural effusion Current visit: Yes Status: Acute Category: Medical Code(s): J90 - Pleural effusion, not elsewhere classified (4) Bilateral pneumonia Current visit: Yes Status: Acute Category: Medical Code(s): J18.9 - Pneumonia, unspecified organism (5) Hypercalcemia Current visit: Yes Status: Acute Category: Medical Code(s): E83.52 - Hypercalcemia (6) Non-Hodgkin lymphoma Current visit: Yes Status: Chronic Qualifiers: Non-Hodgkin lymphoma type: unspecified type Lymphoma site: unspecified region Qualified Code(s): C85.90 - Non-Hodgkin lymphoma, unspecified, unspecified site Category: Medical Code(s): C85.90 - Non-Hodgkin lymphoma, unspecified, unspecified site (7) Hypertension Current visit: No Status: Chronic Qualifiers: Hypertension type: essential hypertension Qualified Code(s): I10 - Essential (primary) hypertension Category: Medical Code(s): I10 - Essential (primary) hypertension - Assessment and plan all Dx Assessment and Plan for all problems:: BASED ON PATIENT FACTORS, RECOMMEND VANCOMYCIN 1750 MG IV ONCE, FOLLOWED BY VANCOMYCIN 1500 MG IV Q24H. PHARMACY WILL FOLLOW DAILY AND ADJUST APPROPRIATE.
[2017-08-29 10:54] LABS: ABG PCO2 46.5 mmhg (35.0-45.0); ABG PH 7.35 mmol/L (7.35-7.45); ABG PO2 86.9 mmhg (80-100)
[2017-08-29 10:55] LABS: ABG Base Excess -0.8 mmol/L (-2.4-2.3); ABG HCO3 24.9 mmhg (22.0-26.0); ABG Oxygen Saturation 97 % (90-100); ABG TCO2 26.3 mmhg (23-27); Oxygen 50% %
[2017-08-29 10:57] LABS: Allen's Test Non Applicable; Tidal Volume BIPAP 16/8
--- NOTE | 2017-08-29 17:10 | Progress Note ---
Internal Medicine - PN: Subj *Date: 08/29/17 *Time: 17:06 Interval history: Patient was weaned from the BiPAP prior to lunch and has been satting well (mid 90s) on a Ventimask at FiO2 50% until the last 10 minutes. Nursing staff reports they came to check on the patient and O2 sats were in the mid 80s and she developed some facial plethora. Patient reports feeling anxious and restless. Once she was awake enough after BiPAP corrected her hypercapnia patient requested her narcotic pain medication as well as her benzodiazepine. She was given only her narcotic pain medication and is quite frustrated and irritated by the fact that she has not received her alprazolam which she has been on for many years for her anxiety. She believes that receive alprazolam will help her with her breathing. Transfer has been arranged in the [facility] for further evaluation. Accepting physician is Dr. Mal Pink. I had spoken with both Dr. Lau who is the patient's administrative support assoc and Dr. Mcintyre his the patient's oncologist in regards to the patient's care. The 4 cm mass seen on her CT is dated from last week is concerning for disseminated fungal infection and Dr. Lau has suggested she may need bronchoscopy. Exam Vital signs and Labs for Last 24 Hours: Temp Pulse Resp BP Pulse Ox 97.7 F 97 H 22 131/53 93 L 08/29/17 15:52 08/29/17 15:52 08/29/17 15:52 08/29/17 15:52 08/29/17 15:52 Laboratory Results - last 24 hr 08/28/17 17:15: WBC 11.9 H, RBC 4.75, Hgb 14.3, Hct 46.3, MCV 97.3, MCH 30.0, MCHC 30.9 L, RDW 14.9, Plt Count 212, MPV 8.3, Neut % (Auto) 71.9, Lymph % (Auto ) 20.2, [place] % (Auto) 4.6, Eos % (Auto) 2.6, Baso % (Auto) 0.7, Neut # (Auto) 8.5 H, Lymph # (Auto) 2.4, [place] # (Auto) 0.6, Eos # (Auto) 0.3, Baso # (Auto) 0.1 08/28/17 22:00: WBC 24.4 H* D, RBC 4.63, Hgb 13.7, Hct 47.1 H, MCV 101.7 H, MCH 29.6, MCHC 29.1 L, RDW 14.8, Plt Count 222, MPV 10.1, Neut % (Auto) 60.0, Lymph % (Auto) 30.6, [place] % (Auto) 6.5, Eos % (Auto) 1.7, Baso % (Auto) 1.1, Neut # ( Auto) 14.7 H, Lymph # (Auto) 7.5 H, [place] # (Auto) 1.6 H, Eos # (Auto) 0.4, Baso # (Auto) 0.3 H, Total Counted 100, Neutrophils % (Manual) 58, Lymphocytes % ( Manual) 36, Monocytes % (Manual) 5, Eosinophils % (Manual) 1, Platelet Estimate Normal, Hypochromasia 1+, Anisocytosis 1+ 08/28/17 22:00: Urine Color Yellow, Urine Appearance Sl cloudy, Urine pH 5.5, Ur Specific [place] >= 1.030, Urine Protein 2+, Urine Glucose (UA) Negative, Urine Ketones Negative, Urine Blood Trace-l, Urine Nitrate Negative, Urine Bilirubin Negative, Urine Urobilinogen 0.2, Ur Leukocyte Esterase Negative, Urine RBC None, Urine WBC 3-5, Ur Squamous Epith Cells 3-5, Amorphous Sediment 2 +, Urine Bacteria 1+, Hyaline Casts 5-10 08/28/17 22:06: ABG pH 7.00 L*, ABG pCO2 96.0 H, ABG pO2 55.0 L, ABG HCO3 23.0, ABG Total CO2 26.0, ABG O2 Saturation 74 L*, ABG Base Excess -8.3 L 08/28/17 22:10: Sodium 139, Potassium 4.9, Chloride 104, Carbon Dioxide 25, Anion Gap 14.9, BUN 33 H, Creatinine 1.20 H, Estimated Creat Clear 53, Estimated GFR 43 L, Est GFR ( Amer) 52 L, Glucose 165 H, Troponin I 0.05 08/29/17 00:20: Specimen Source Left radial, O2 % 60%, ABG pH 7.19 L*, ABG pCO2 64.2 H, ABG pO2 96.7, ABG HCO3 24.0, ABG Total CO2 26.0, ABG O2 Saturation 96, ABG Base Excess -4.2 L, Ralph Test Patient unable 08/29/17 05:30: Sodium 141, Potassium 4.8, Chloride 105, Carbon Dioxide 30, Anion Gap 10.8, BUN 30 H, Creatinine 1.12 H, Estimated Creat Clear 58, Estimated GFR 47 L, Est GFR ( Amer) 57 L, Glucose 91 D, Calcium 10.7 H, Total Bilirubin 0.3, AST 56 H, ALT 20, Alkaline Phosphatase 79, Total Protein 5.8 L, Albumin 2.8 L, Globulin 3.0, Albumin/Globulin Ratio 0.9 L 08/29/17 06:39: Specimen Source Cancelled, O2 % Cancelled, ABG pH Cancelled, ABG pCO2 Cancelled, ABG pO2 Cancelled, ABG HCO3 Cancelled, ABG Total CO2 Cancelled, ABG O2 Saturation Cancelled, ABG Base Excess Cancelled, Ralph Test Cancelled, Vent Rate Cancelled, Tidal Volume Cancelled, PEEP Cancelled 08/29/17 09:33: ABG pH Cancelled 08/29/17 09:34: Specimen Source Right brachial, O2 % 50%, ABG pH 7.35, ABG pCO2 46.5 H, ABG pO2 86.9, ABG HCO3 24.9, ABG Total CO2 26.3, ABG O2 Saturation 97, ABG Base Excess -0.8, Ralph Test Non applicable, Tidal Volume Bipap 16/8 I & O for Last 24 hours: Intake & Output 08/27/17 08/28/17 08/29/17 08/30/17 11:59 11:59 11:59 11:59 Intake Total 1017 / 1017 2440 / 2440 1860 / 1860 10 Output Total 1050 / 1050 1700 / 1700 625 / 625 1100 / 1100 Balance -33 / -33 740 / 740 1235 / 1235 -1090 / -1090 Weight 195 lb 8 oz 196 lb 6 oz 198 lb 2 oz Narrative: Patient is in mild distress. She is wearing a Ventimask currently. She has distant breath sounds at the bases from her pleural effusions. Lungs are clear superiorly both anteriorly and posteriorly. Heart rate is mildly tachycardic. Assessment and Plan (1) Respiratory failure Current visit: Yes Status: Acute Qualifiers: Respiratory failure complication: hypoxia and hypercapnia Qualified Code(s) : J96.01 - Acute respiratory failure with hypoxia; J96.02 - Acute respiratory failure with hypercapnia Category: Medical Code(s): J96.90 - Respiratory failure, unspecified, unspecified whether with hypoxia or hypercapnia (2) COPD with exacerbation Current visit: Yes Status: Acute Category: Medical Code(s): J44.1 - Chronic obstructive pulmonary disease with (acute) exacerbation (3) Bilateral pleural effusion Current visit: Yes Status: Acute Category: Medical Code(s): J90 - Pleural effusion, not elsewhere classified (4) Bilateral pneumonia Current visit: Yes Status: Acute Category: Medical Code(s): J18.9 - Pneumonia, unspecified organism (5) Hypercalcemia Current visit: Yes Status: Acute Category: Medical Code(s): E83.52 - Hypercalcemia (6) Non-Hodgkin lymphoma Current visit: Yes Status: Chronic Qualifiers: Non-Hodgkin lymphoma type: unspecified type Lymphoma site: unspecified region Qualified Code(s): C85.90 - Non-Hodgkin lymphoma, unspecified, unspecified site Category: Medical Code(s): C85.90 - Non-Hodgkin lymphoma, unspecified, unspecified site (7) Hypertension Current visit: No Status: Chronic Qualifiers: Hypertension type: essential hypertension Qualified Code(s): I10 - Essential (primary) hypertension Category: Medical Code(s): I10 - Essential (primary) hypertension - Assessment and plan all Dx Assessment and Plan for all problems:: Patient will be given an additional dose of Lasix 40 mg IV. She is going to be restarted on BiPAP temporarily. Patient will be given half of her usual dose of alprazolam to try to relax her a little bit. We are still waiting a call from the [facility] as the patient has been accepted in transfer to their medical service.
--- NOTE | 2017-08-29 17:17 | Discharge Summary ---
General - General Admission date:: 08/24/17 Discharge date: 08/29/17 HPI HPI: 77-year-old white female with ongoing lymphoma, also with hypercalcemia of malignancy whose chemotherapy is on hold because of this issue, along with arrhythmia issues and hypertension, who presented to the emergency department last night with chief complaints of fatigue, cough, shortness of air and sputum production. Was found to be fatigued, mildly dehydrated, evidence of bronchopneumonia in both lower lung nguyen on chest x-ray as well as crackles in her lung nguyen. Admitted for IV antibiotics given her immunosuppressed status with lymphoma. This morning she feels marginally better with less shortness of air after some breathing treatments and 1 dose of steroids. Has lots of concerns about her calcium levels and her fatigue from recent cardiac medicines that have been started for her dysrhythmias and tachycardias. Hospital Course Hospital Course: Patient was admitted and placed on Rocephin and azithromycin for treatment of community-acquired pneumonia. She was maintained on this regimen until August 29. On August 29 antibiotic coverage was broadened due to development of acute respiratory failure the prior evening. Patient was continued on Rocephin with the addition of Levaquin and vancomycin with discontinuation of azithromycin. Pneumonia had first been identified on CT scan of the chest performed August 21. CT scan at that time also showed a 4 cm right middle lobe mass. 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 On August 29 fluconazole was added to the patient's regimen. I spoke with Dr. Lau on August 29 regarding the patient's care. As we are unable to perform bronchoscopy at this facility I transferred the patient to the [facility]. Patient was accepted by Dr. Pink. Patient has known small cell lymphoma and is followed by Dr. Mcintyre. Her treatment for lymphoma has been somewhat fractured due to reactions to chemo therapy. At her last visit with Dr. Mcintyre the plan was to begin Keytruda. Patient has developed hypercalcemia over the last month. 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 She has had one observation admission and receive intravenous bisphosphonate infusion. Potassium was elevated above 11 on initial admission to this facility but after IV fluids and Lasix patient's calcium has been between 10 and 11. Patient was identified as having bilateral pleural effusions on initial CT scan from August 21. It was felt that during this hospitalization the effusions worsened. Initial plan had been to ask for ultrasound-guided thoracentesis of effusions for August 29. However due to patient's acute respiratory decompensation that occurred on the evening of August 28 patient was not appropriate for the procedure. As alluded to previously patient had acute respiratory decompensation on the evening of August 28 and developed hypercapnic respiratory failure. Patient's hypercapnia was corrected with BiPAP. Patient was on BiPAP for approximately 12 hours before weaned to Ventimask. At the time of this dictation patient has recently been placed back on BiPAP due to a drop in her O2 sats. Patient has known paroxysmal atrial fibrillation. Heart rate has been controlled during her hospitalization. She has been referred to clinical biochemist who is explained to the patient that her ongoing malignancy prohibits her from being a candidate for any ablation procedure. 08/30--Patient developed dependence on Bipap. Per 's request/protocol transfer has been arranged to ICU and she has been accepted by Dr. Cherry. Plan was to attempt thoracentesis but bed became available quickly and patient was transferred to [facility] Vital signs: Temp Pulse Resp BP Pulse Ox 97.7 F 97 H 22 131/53 93 L 08/29/17 15:52 08/29/17 15:52 08/29/17 15:52 08/29/17 15:52 08/29/17 15:52 Results Labs on day of discharge: Labs from last 24 hours 08/29/17 08/29/17 08/29/17 09:34 09:33 06:39 WBC RBC Hgb Hct MCV MCH MCHC RDW Plt Count MPV Neut % (Auto) Lymph % (Auto) Frio % (Auto) Eos % (Auto) Baso % (Auto) Neut # (Auto) Lymph # (Auto) Frio # (Auto) Eos # (Auto) Baso # (Auto) Total Counted Neutrophils % (Manual) Lymphocytes % (Manual) Monocytes % (Manual) Eosinophils % (Manual) Platelet Estimate Hypochromasia Anisocytosis Specimen Source Right brachial Cancelled O2 % 50% Cancelled ABG pH 7.35 Cancelled Cancelled ABG pCO2 46.5 H Cancelled ABG pO2 86.9 Cancelled ABG HCO3 24.9 Cancelled ABG Total CO2 26.3 Cancelled ABG O2 Saturation 97 Cancelled ABG Base Excess -0.8 Cancelled Ralph Test Non applicable Cancelled Vent Rate Cancelled Tidal Volume Bipap 16/8 Cancelled PEEP Cancelled Sodium Potassium Chloride Carbon Dioxide Anion Gap BUN Creatinine Estimated Creat Clear Estimated GFR Est GFR ( Amer) Glucose Calcium Total Bilirubin AST ALT Alkaline Phosphatase Troponin I Total Protein Albumin Globulin Albumin/Globulin Ratio Urine Color Urine Appearance Urine pH Ur Specific [place] Urine Protein Urine Glucose (UA) Urine Ketones Urine Blood Urine Nitrate Urine Bilirubin Urine Urobilinogen Ur Leukocyte Esterase Urine RBC Urine WBC Ur Squamous Epith Cells Amorphous Sediment Urine Bacteria Hyaline Casts 08/29/17 08/29/17 08/28/17 05:30 00:20 22:10 WBC RBC Hgb Hct MCV MCH MCHC RDW Plt Count MPV Neut % (Auto) Lymph % (Auto) Frio % (Auto) Eos % (Auto) Baso % (Auto) Neut # (Auto) Lymph # (Auto) Frio # (Auto) Eos # (Auto) Baso # (Auto) Total Counted Neutrophils % (Manual) Lymphocytes % (Manual) Monocytes % (Manual) Eosinophils % (Manual) Platelet Estimate Hypochromasia Anisocytosis Specimen Source Left radial O2 % 60% ABG pH 7.19 L* ABG pCO2 64.2 H ABG pO2 96.7 ABG HCO3 24.0 ABG Total CO2 26.0 ABG O2 Saturation 96 ABG Base Excess -4.2 L Ralph Test Patient unable Vent Rate Tidal Volume PEEP Sodium 141 139 Potassium 4.8 4.9 Chloride 105 104 Carbon Dioxide 30 25 Anion Gap 10.8 14.9 BUN 30 H 33 H Creatinine 1.12 H 1.20 H Estimated Creat Clear 58 53 Estimated GFR 47 L 43 L Est GFR ( Amer) 57 L 52 L Glucose 91 D 165 H Calcium 10.7 H Total Bilirubin 0.3 AST 56 H ALT 20 Alkaline Phosphatase 79 Troponin I 0.05 Total Protein 5.8 L Albumin 2.8 L Globulin 3.0 Albumin/Globulin Ratio 0.9 L Urine Color Urine Appearance Urine pH Ur Specific [place] Urine Protein Urine Glucose (UA) Urine Ketones Urine Blood Urine Nitrate Urine Bilirubin Urine Urobilinogen Ur Leukocyte Esterase Urine RBC Urine WBC Ur Squamous Epith Cells Amorphous Sediment Urine Bacteria Hyaline Casts 08/28/17 08/28/17 08/28/17 22:06 22:00 22:00 WBC 24.4 H* D RBC 4.63 Hgb 13.7 Hct 47.1 H MCV 101.7 H MCH 29.6 MCHC 29.1 L RDW 14.8 Plt Count 222 MPV 10.1 Neut % (Auto) 60.0 Lymph % (Auto) 30.6 Frio % (Auto) 6.5 Eos % (Auto) 1.7 Baso % (Auto) 1.1 Neut # (Auto) 14.7 H Lymph # (Auto) 7.5 H Frio # (Auto) 1.6 H Eos # (Auto) 0.4 Baso # (Auto) 0.3 H Total Counted 100 Neutrophils % (Manual) 58 Lymphocytes % (Manual) 36 Monocytes % (Manual) 5 Eosinophils % (Manual) 1 Platelet Estimate Normal Hypochromasia 1+ Anisocytosis 1+ Specimen Source O2 % ABG pH 7.00 L* ABG pCO2 96.0 H ABG pO2 55.0 L ABG HCO3 23.0 ABG Total CO2 26.0 ABG O2 Saturation 74 L* ABG Base Excess -8.3 L Ralph Test Vent Rate Tidal Volume PEEP Sodium Potassium Chloride Carbon Dioxide Anion Gap BUN Creatinine Estimated Creat Clear Estimated GFR Est GFR ( Amer) Glucose Calcium Total Bilirubin AST ALT Alkaline Phosphatase Troponin I Total Protein Albumin Globulin Albumin/Globulin Ratio Urine Color Yellow Urine Appearance Sl cloudy Urine pH 5.5 Ur Specific [place] >= 1.030 Urine Protein 2+ Urine Glucose (UA) Negative Urine Ketones Negative Urine Blood Trace-l Urine Nitrate Negative Urine Bilirubin Negative Urine Urobilinogen 0.2 Ur Leukocyte Esterase Negative Urine RBC None Urine WBC 3-5 Ur Squamous Epith Cells 3-5 Amorphous Sediment 2+ Urine Bacteria 1+ Hyaline Casts 5-10 08/28/17 17:15 WBC 11.9 H RBC 4.75 Hgb 14.3 Hct 46.3 MCV 97.3 MCH 30.0 MCHC 30.9 L RDW 14.9 Plt Count 212 MPV 8.3 Neut % (Auto) 71.9 Lymph % (Auto) 20.2 Frio % (Auto) 4.6 Eos % (Auto) 2.6 Baso % (Auto) 0.7 Neut # (Auto) 8.5 H Lymph # (Auto) 2.4 Frio # (Auto) 0.6 Eos # (Auto) 0.3 Baso # (Auto) 0.1 Total Counted Neutrophils % (Manual) Lymphocytes % (Manual) Monocytes % (Manual) Eosinophils % (Manual) Platelet Estimate Hypochromasia Anisocytosis Specimen Source O2 % ABG pH ABG pCO2 ABG pO2 ABG HCO3 ABG Total CO2 ABG O2 Saturation ABG Base Excess Ralph Test Vent Rate Tidal Volume PEEP Sodium Potassium Chloride Carbon Dioxide Anion Gap BUN Creatinine Estimated Creat Clear Estimated GFR Est GFR ( Amer) Glucose Calcium Total Bilirubin AST ALT Alkaline Phosphatase Troponin I Total Protein Albumin Globulin Albumin/Globulin Ratio Urine Color Urine Appearance Urine pH Ur Specific [place] Urine Protein Urine Glucose (UA) Urine Ketones Urine Blood Urine Nitrate Urine Bilirubin Urine Urobilinogen Ur Leukocyte Esterase Urine RBC Urine WBC Ur Squamous Epith Cells Amorphous Sediment Urine Bacteria Hyaline Casts DS: Diagnosis - Discharge Diagnosis (1) Respiratory failure Status: Acute (2) COPD with exacerbation Status: Acute (3) Bilateral pleural effusion Status: Acute (4) Bilateral pneumonia Status: Acute (5) Hypercalcemia Status: Acute (6) Non-Hodgkin lymphoma Status: Chronic (7) Hypertension Status: Chronic (8) Hypercalcemia Status: Acute (9) Atrial fibrillation Status: Acute Discharge Plan - Patient Discharge Instructions ACTIVITY: Bed rest DIET: continue same diet Patient Instructions: Non-Hodgkin Lymphoma-Adult, Kidney Failure, Acute Bronchitis, Hypercalcemia - Follow up Plan Disposition: Xfer Short-Term Hosp Home Medications: Home Medications Medication Instructions Recorded Confirmed Type Hydrocodone/Acetaminophen 1 each PO QIDP PRN 04/02/17 08/25/17 History [Hydrocodone-Acetamin 10-325 mg] budesonide-formoterol HFA 160 2 puff INHALATION Q12H 04/12/17 08/25/17 History mcg-4.5 mcg/actuation aerosol inhaler Levothyroxine Sodium 125 mcg PO DAILY 04/16/17 08/25/17 History [Levothyroxine 125mcg (0.125mg) Tab] furosemide 20 mg tablet 20 mg PO DAILY PRN 06/21/17 08/25/17 History Apixaban [Eliquis] 5 mg PO BID 08/01/17 08/25/17 History Aspirin [Aspirin 325mg Tab] 325 mg PO DAILY 08/01/17 08/25/17 History Ergocalciferol (Vitamin D2) 400 unit PO DAILY 08/01/17 08/25/17 History [Vitamin D] Krill Oil 1,000 mg PO DAILY 08/01/17 08/25/17 History Loratadine [Claritin 10mg Tablet] 10 mg PO DAILY 08/01/17 08/25/17 History Vitamin A 8,000 unit PO DAILY 08/01/17 08/25/17 History Metoprolol Tartrate [Lopressor 25 mg PO BID 08/24/17 08/25/17 History 25mg tablet] ALPRAZolam [Xanax 0.5mg tab] 0.5 mg PO DAILY 08/25/17 08/25/17 History Prescriptions/Medication Reconciliation: Continue budesonide-formoterol HFA 160 mcg-4.5 mcg/actuation aerosol inhaler 2 puff INHALATION Q12H furosemide 20 mg tablet 20 mg PO DAILY PRN PRN Reason: Fluid Hydrocodone/Acetaminophen [Hydrocodone-Acetamin 10-325 mg] 1 each PO QIDP PRN PRN Reason: Severe Pain Levothyroxine Sodium [Levothyroxine 125mcg (0.125mg) Tab] 125 mcg PO DAILY Apixaban [Eliquis] 5 mg PO BID Loratadine [Claritin 10mg Tablet] 10 mg PO DAILY Vitamin A 8,000 unit PO DAILY Aspirin [Aspirin 325mg Tab] 325 mg PO DAILY Krill Oil 1,000 mg PO DAILY Ergocalciferol (Vitamin D2) [Vitamin D] 400 unit PO DAILY ALPRAZolam [Xanax 0.5mg tab] 0.5 mg PO DAILY Metoprolol Tartrate [Lopressor 25mg tablet] 25 mg PO BID
[2017-08-30 05:51] LABS: Basophils % 0.3 % (0.1-2.0); Eosinophils % 0.2 % (0.1-12.0); Hematocrit 43.6 % (37.0-47.0); Hemoglobin 12.9 g/dL (12.2-16.2); Lymphocytes # 2.1 K/mm3 (0.7-4.5); Lymphocytes % 19.3 K/mm3 (10-50); Mean Corpuscular HGB Conc 29.5 g/dL (31.8-35.4); Mean Corpuscular Hemoglobin 29.2 pg (27.0-31.2); Mean Corpuscular Volume 99.1 fl (81-99); Mean Platelet Volume 9.1 fl (7.4-10.4); Monocytes # 0.7 K/mm3 (0.1-1.0); Neutrophils # 8.2 K/mm3 (1.8-7.8); Neutrophils % 74.2 % (37.0-80.0); Platelet Count 190 K/mm3 (142-424); White Blood Count 11.1 K/mm3 (4.8-10.8)
[2017-08-30 05:54] LABS: Anion Gap 15.5 mEq/L (5-15); Potassium 4.5 mmoL/L (3.5-5.1)
--- NOTE | 2017-08-30 06:51 | Progress Note ---
Internal Medicine - PN: Subj *Date: 08/30/17 *Time: 06:48 Interval history: Patient was placed back on BiPAP yesterday afternoon and any attempt to wean overnight were unsuccessful with patient's O2 sats decreasing to high 70s and low 80s. This morning the patient's biggest complaint is pain. With BiPAP in place she denies shortness of breath but within 2-3 minutes of removal of BiPAP for oral care patient admits she will begin to feel dyspneic. She also reports a new complaint of right hand weakness which she believes she first noticed about 48 hours ago. Exam Vital signs and Labs for Last 24 Hours: Temp Pulse Resp BP Pulse Ox 97.6 F 61 20 135/70 97 08/30/17 04:00 08/30/17 04:00 08/30/17 04:00 08/30/17 04:00 08/30/17 04:00 Laboratory Results - last 24 hr 08/28/17 22:06: ABG pH 7.00 L*, ABG pCO2 96.0 H, ABG pO2 55.0 L, ABG HCO3 23.0, ABG Total CO2 26.0, ABG O2 Saturation 74 L*, ABG Base Excess -8.3 L 08/29/17 06:39: Specimen Source Cancelled, O2 % Cancelled, ABG pH Cancelled, ABG pCO2 Cancelled, ABG pO2 Cancelled, ABG HCO3 Cancelled, ABG Total CO2 Cancelled, ABG O2 Saturation Cancelled, ABG Base Excess Cancelled, Ralph Test Cancelled, Vent Rate Cancelled, Tidal Volume Cancelled, PEEP Cancelled 08/29/17 09:33: ABG pH Cancelled 08/29/17 09:34: Specimen Source Right brachial, O2 % 50%, ABG pH 7.35, ABG pCO2 46.5 H, ABG pO2 86.9, ABG HCO3 24.9, ABG Total CO2 26.3, ABG O2 Saturation 97, ABG Base Excess -0.8, Ralph Test Non applicable, Tidal Volume Bipap 16/8 08/30/17 05:15: WBC 11.1 H D, RBC 4.40, Hgb 12.9, Hct 43.6, MCV 99.1 H, MCH 29.2 , MCHC 29.5 L, RDW 15.0, Plt Count 190, MPV 9.1, Neut % (Auto) 74.2, Lymph % ( Auto) 19.3, [place] % (Auto) 6.0, Eos % (Auto) 0.2, Baso % (Auto) 0.3, Neut # (Auto ) 8.2 H, Lymph # (Auto) 2.1, [place] # (Auto) 0.7, Eos # (Auto) 0.0, Baso # (Auto) 0.0 08/30/17 05:15: Sodium 141, Potassium 4.5, Chloride 101, Carbon Dioxide 29, Anion Gap 15.5 H, BUN 32 H, Creatinine 1.21 H, Estimated Creat Clear 53, Estimated GFR 43 L, Est GFR ( Amer) 52 L, Glucose 76 I & O for Last 24 hours: Intake & Output 08/27/17 08/28/17 08/29/17 08/30/17 11:59 11:59 11:59 11:59 Intake Total 1017 / 1017 2440 / 2440 2009 / 2009 490 / 490 Output Total 1050 / 1050 1700 / 1700 625 / 625 2900 / 2900 Balance -33 / -33 740 / 740 1385 / 1385 -2410 / -2410 Weight 195 lb 8 oz 196 lb 6 oz 198 lb 2 oz 194 lb 9 oz Narrative: Patient appears much more comfortable, awake, alert this morning after resting with BiPAP overnight. Lungs still has significantly diminished breath sounds at the right base consistent with the pleural effusion. Breath sounds also diminished on the left consistent with pleural effusion. There is no wheezing or rhonchi at this time. Heart has a regular rate and rhythm. Extremities are without edema. Right hand claims vice president is weak when compared to left hand claims vice president ( patient is right-hand dominant). Assessment and Plan (1) Respiratory failure Current visit: Yes Status: Acute Qualifiers: Respiratory failure complication: hypoxia and hypercapnia Qualified Code(s) : J96.01 - Acute respiratory failure with hypoxia; J96.02 - Acute respiratory failure with hypercapnia Category: Medical Code(s): J96.90 - Respiratory failure, unspecified, unspecified whether with hypoxia or hypercapnia (2) COPD with exacerbation Current visit: Yes Status: Acute Category: Medical Code(s): J44.1 - Chronic obstructive pulmonary disease with (acute) exacerbation (3) Bilateral pleural effusion Current visit: Yes Status: Acute Category: Medical Code(s): J90 - Pleural effusion, not elsewhere classified (4) Bilateral pneumonia Current visit: Yes Status: Acute Category: Medical Code(s): J18.9 - Pneumonia, unspecified organism (5) Hypercalcemia Current visit: Yes Status: Acute Category: Medical Code(s): E83.52 - Hypercalcemia (6) Non-Hodgkin lymphoma Current visit: Yes Status: Chronic Qualifiers: Non-Hodgkin lymphoma type: unspecified type Lymphoma site: unspecified region Qualified Code(s): C85.90 - Non-Hodgkin lymphoma, unspecified, unspecified site Category: Medical Code(s): C85.90 - Non-Hodgkin lymphoma, unspecified, unspecified site (7) Hypertension Current visit: No Status: Chronic Qualifiers: Hypertension type: essential hypertension Qualified Code(s): I10 - Essential (primary) hypertension Category: Medical Code(s): I10 - Essential (primary) hypertension (8) Hypercalcemia Current visit: No Status: Acute Category: Medical Code(s): E83.52 - Hypercalcemia (9) Atrial fibrillation Current visit: Yes Status: Acute Category: Medical Code(s): I48.91 - Unspecified atrial fibrillation - Assessment and plan all Dx Assessment and Plan for all problems:: 1. I am going to ask radiology to perform ultrasound-guided thoracentesis with examination of pleural fluid. Goal will be to remove as much fluid as possible which I think will improve the patient's dyspnea. 2. Contact [facility] and update them on patient's situation. Due to the patient's dependence on BiPAP upon transfer she would need to go to the intensive care service. Although we will continue to try to wean BiPAP especially if she has thoracentesis 3. I have once again explained to the patient that we are being very cautious with use of her narcotics to avoid respiratory depression. She is quite frustrated with this but voices understanding. 4. I will prioritize the ultrasound-guided thoracentesis over CT scan of the head that she will also need that here in the near future due to this new onset right hand weakness to rule out possibility of CVA. Patient is already taking Eliquis for her atrial fibrillation
[2017-08-30 11:50] VITALS: BP 102/83
== END 2017-08-30 13:00 | disposition short-term general hospital (02) ==
LOC: 2ND 20:12 → ER 20:12 → OBSVTOIN 22:45 → 2ND 22:46
PROVIDERS: ADMIT Emergency Medicine; ATTEND Family Medicine
CPT/HCPCS: 36415; 71010; 71020; 71045; 71046; 71250; 80048; 80053; 80076; 81001; 82150; 82310; 82652; 82803; 83605; 83690; 83735; 83880; 83970; 84484; 85007; 85025; 86606; 86612; 86635; 86698; 87070; 87205; 93005; 94640; 94660; 94760; 94761; 96365; 96366; 97116; 97162; 99284; J0456; J1956; J3370